=== PATIENT | female | born 1945 | race Caucasian/White ===

== ENCOUNTER 2017-08-03 11:20 | Emergency (ER) | payer BC, MEDICARE ==
[2017-08-03 11:31] VITALS: TEMP 98.9
[2017-08-03] MEDS ORDERED: NITROGLYCERIN 0.4 MG 25 EA TAB SL ONE (11:41)
[2017-08-03] MEDS ORDERED: ASPIRIN TABLET 325 MG TAB PO ONE (11:41)
[2017-08-03] MEDS ORDERED: ONDANSETRON INJ 4 MG/2 ML VIAL IV ONE (11:41)
--- NOTE | 2017-08-03 12:21 | RAD ---
EXAM DESCRIPTION: Chest,1 View CLINICAL HISTORY: chest pressure COMPARISON: 2 view chest 03/13/2007. TECHNIQUE: AP portable taken at 1152 hours, upright position. FINDINGS: Decreased lung volume. Large body habitus. No acute infiltrate. Heart is artifactually enlarged due to body habitus and decreased inspiratory effort. Pulmonary vascularity unremarkable. Monitoring leads on the chest. IMPRESSION: Senescent markings in the lung. Poor inspiratory effort. No radiographic evidence of acute cardiopulmonary disease. Electronically signed by: Rahul Cowart MD 08/03/2017 12:20 PM CDT
--- NOTE | 2017-08-03 12:45 | ED.PDOC ---
History of Present Illness - General Chief Complaint: Chest Pain/MD Stated Complaint: chest pain, sob, cough Time Seen by Provider: 08/03/17 11:48 Source: patient Exam Limitations: no limitations - History of Present Illness Initial Comments: Bonnie Bray 71 y/o female came to ER with dry cough for the last 3 MONTHS accompanied by burning chest pains during coughing episode which has got worse as well as the cough.Initially had chest x-ray done but no acute findings noted and had recent CT-chest but no result received by patient since Md is out of town.Stated had 2 MD in the past but no stents or surgery and also her blood pressure was high. Timing/Duration: other - see hpi Severity: moderate Improving Factors: nothing Worsening Factors: nothing Associated Symptoms: cough Allergies/Adverse Reactions: Allergies Penicillins Allergy (Verified 08/03/17 11:31) Sulfa Antibiotics Allergy (Verified 08/03/17 11:31) Review of Systems - Review of Systems Constitutional: States: no symptoms reported EENTM: States: no symptoms reported Respiratory: States: see HPI Cardiology: States: see HPI Neurological: States: no symptoms reported All other Systems: Reviewed and Negative, No Change from Baseline Past Medical History (General) - Patient Medical History Hx Asthma: Yes Hx Cardiac Disorders: Yes - MD x2 Hx Hypertension: Yes Hx Thyroid Disease: Yes MRSA Source:: left knee Surgical History: tonsillectomy, other - knee left - Vaccination History Hx Influenza Vaccination: Yes Hx Pneumococcal Vaccination: No - Social History Hx Tobacco Use: No Hx Alcohol Use: No Hx Physical Abuse: No Hx Emotional Abuse: No Family Medical History - Family History Mother Family History: Unknown Hx Family Hypertension: Yes Physical Exam - Physical Exam General Appearance: Alert, Comfortable, No apparent distress Eye Exam: bilateral normal Ears, Nose, Throat: hearing grossly normal, normal ENT inspection Neck: non-tender, supple Respiratory: chest non-tender, no respiratory distress, other - coarse breath sounds Cardiovascular/Chest: regular rate, rhythm, no murmur Peripheral Pulses: radial,right: 2+, radial,left: 2+ Gastrointestinal/Abdominal: normal bowel sounds, non tender, soft, no organomegaly Back Exam: no CVA tenderness, no vertebral tenderness Extremity: normal inspection, no pedal edema, no calf tenderness Neurologic: no motor/sensory deficits, alert, oriented x 3 Skin Exam: normal color, warm/dry Progress - Progress Progress: 08/03/17 12:47 Vital Signs - 8 hr 08/03/17 08/03/17 11:20 11:32 Temperature 98.9 F Pulse Rate [ 78 pulse ox] Respiratory 20 20 Rate Blood Pressure 190/130 [Left Arm] O2 Sat by Pulse 96 Oximetry - Results/Orders Results/Orders: Laboratory Tests 08/03/17 08/03/17 08/03/17 11:45 11:48 11:49 WBC 10.5 RBC 4.79 Hgb 14.2 Hct 42.6 MCV 89.0 MCH 29.7 MCHC 33.4 RDW 15.1 H Plt Count 236 MPV 9.0 Absolute Neuts (auto) 7.80 H Absolute Lymphs (auto) 1.80 Absolute Monos (auto) 0.60 Absolute Eos (auto) 0.20 Absolute Basos (auto) 0.10 Neutrophils % 74.0 Lymphocytes % 17.3 L Monocytes % 6.0 Eosinophils % 1.8 Basophils % 0.9 PT 10.4 INR 1.04 PTT (SP) 25.9 D-Dimer, Quantitative 2.09 H* Sodium 141 Potassium 3.9 Chloride 103 Carbon Dioxide 28 Anion Gap 13.9 BUN 18 Creatinine 0.98 BUN/Creatinine Ratio 18.4 Random Glucose 123 H Serum Osmolality 284.5 Lactic Acid 2.1 Calcium 8.4 Magnesium 1.7 L Total Bilirubin 1.5 H Direct Bilirubin 0.4 H Indirect Bilirubin 1.1 H AST 79 H ALT 47 Alkaline Phosphatase 148 H Creatine Kinase 39 CK-MB (CK-2) 1.3 CK-MB (CK-2) % Not Reportable Troponin I < 0.02 B-Natriuretic Peptide 515.0 H* Serum Total Protein 6.8 Albumin 3.5 - EKG/XRAY/CT EKG: Sinus, nonspecific ST T wave Chg - anterior leads Comments: HR-73 XRAY: chest - no acute cardiopulmonary abnormality CT Ordered: Yes - cta-chest:ascending aortic artery aneurysm;toni pulmonary nodule;no PE Departure - Departure Clinical Impression: Ascending aortic aneurysm, Multiple pulmonary nodules, D-dimer, elevated Chest pain Qualifiers: Chest pain type: pleurodynia Qualified Code(s): R07.81 - Pleurodynia Time of Disposition: 15:21 Disposition: Discharge to Home or Self Care Condition: Fair Departure Forms: ED Discharge - Pt. Copy, Patient Portal Self Enrollment Instructions: DI for Chest Pain Referrals: SHANTELL CABELLO [Primary Care Provider] - 1-2 Weeks Additional Instructions: FOLLOW UP WITH YOUR PRIMARY MD Dr. REN IN AM 04 August 2017 Return to emergency room as needed;Continue with all home medications
--- NOTE | 2017-08-03 14:51 | CT ---
EXAM DESCRIPTION: CTA Chest CLINICAL HISTORY: chest pain/elevated d- dimer COMPARISON: Chest radiograph obtained earlier same day TECHNIQUE: Chest CTA was performed with IV contrast including MIP and/or Three-D reconstructed images. This exam was performed according to our departmental dose-optimization program, which includes automated exposure control, adjustment of the mA and/or kV according to patient size and/or use of iterative reconstruction technique. FINDINGS: There is no pulmonary embolus. There is a 4.7 cm ascending thoracic aortic aneurysm. No mediastinal or hilar adenopathy. No pleural or pericardial effusion. The right thyroid lobe is not seen. No left thyroid nodule is identified. No esophageal wall thickening. The central airways are clear. No airspace consolidation or lung mass. There is a 5 mm noncalcified nodule right lower lobe (series 2 image 73 and 11 mm noncalcified nodule is noted in the superior segment of the left lower lobe (series 2 image 62). Two smaller noncalcified nodules are noted elsewhere in the left lower lobe, the largest measuring approximately 3 mm diameter. Diffuse fatty infiltration of the liver is noted. Visualized portions of the upper abdomen are otherwise unremarkable for pulmonary arterial technique. No fracture or pneumothorax. IMPRESSION: No pulmonary embolus or other acute intrathoracic abnormality. 4.7 cm ascending thoracic aortic aneurysm. Bilateral noncalcified lung nodules, the largest measuring 11 mm diameter in the left lower lobe. Per 2017 Fleischner 6-8 recommendations, follow-up chest CT in 3-6 months is recommended with additional follow-up CT in 18-24 months. Diffuse fatty infiltration of the liver. Electronically signed by: Steve Aquino MD 08/03/2017 2:50 PM CDT
[2017-08-03 15:52] VITALS: BP 135/88; O2SAT 95
== END 2017-08-03 15:52 | disposition home or self-care (01) ==
LOC: ER 11:20
DX: R07.81 Pleurodynia (principal); I71.2 Thoracic aortic aneurysm, without rupture; R79.89 Other specified abnormal findings of blood chemistry; R91.8 Other nonspecific abnormal finding of lung field; R05 Cough; J45.909 Unspecified asthma, uncomplicated; I25.2 Old myocardial infarction; I10 Essential (primary) hypertension; E07.9 Disorder of thyroid, unspecified; Z88.0 Allergy status to penicillin; Z88.2 Allergy status to sulfonamides
CPT/HCPCS: 36415; 71045; 71275; 80048; 80076; 82550; 82553; 83605; 83880; 84484; 85025; 85379; 85610; 85730; 93005; J2405

== ENCOUNTER 2017-08-09 20:30 | Inpatient (IN) | payer BC, MEDICARE ==
--- NOTE | 2017-08-09 20:52 | ED.PDOC ---
History of Present Illness - General Chief Complaint: Respiratory Problem Stated Complaint: nausea/vomiting Time Seen by Provider: 08/09/17 20:45 Source: patient Exam Limitations: no limitations - History of Present Illness Initial Comments: Bonnie Bray 71 y/o female stated that she had been having nausea/vomiting on and off for the last 3 days no diarrhea,has abdominal cramps.She was seen several days ago for her chronic cough and pleuritic chest pains and CTA chest for elevated d- dimer no PE noted but had ascending aortic aneurysm 4.7 cm had follow up with primary Md and went to [facility] and had CTA chest in 2012 showing no expansion in size and was advised to follow up with her Md.Has scheduled follow up with manager of loss prevention operations for her lung nodules. stated had history of pancreatitis in the past Timing/Duration: other - see hpi Severity: moderate Improving Factors: nothing Worsening Factors: eating Associated Symptoms: other - see hpi Allergies/Adverse Reactions: Allergies Penicillins Allergy (Verified 08/09/17 21:31) Sulfa Antibiotics Allergy (Verified 08/09/17 21:31) Review of Systems - Review of Systems Constitutional: States: no symptoms reported EENTM: States: no symptoms reported Respiratory: States: see HPI Cardiology: States: no symptoms reported Gastrointestinal/Abdominal: States: see HPI Genitourinary: States: no symptoms reported Musculoskeletal: States: no symptoms reported All other Systems: Reviewed and Negative, No Change from Baseline Past Medical History (General) - Patient Medical History Hx Asthma: Yes Hx Cardiac Disorders: Yes - [place] x2 Hx Hypertension: Yes Hx Thyroid Disease: Yes MRSA Source:: left knee Surgical History: tonsillectomy, other - left knee - Vaccination History Hx Influenza Vaccination: Yes Hx Pneumococcal Vaccination: No - Social History Hx Tobacco Use: No Hx Alcohol Use: No Hx Physical Abuse: No Hx Emotional Abuse: No - Activities of Daily Living Grooming Ability: Independent Eating (Feeding) Ability: Independent Toileting Ability: Independent Family Medical History - Family History Mother Family History: Unknown Hx Family Hypertension: Yes Physical Exam - Physical Exam General Appearance: Alert, Comfortable, No apparent distress Eye Exam: bilateral normal Ears, Nose, Throat: hearing grossly normal, normal ENT inspection Neck: non-tender, supple Respiratory: lungs clear, normal breath sounds Cardiovascular/Chest: normal peripheral pulses, regular rate, rhythm, no murmur Peripheral Pulses: radial,right: 2+, radial,left: 2+ Gastrointestinal/Abdominal: soft, no organomegaly, tenderness - right side abdomen;no peritoneal signs Back Exam: no CVA tenderness, no vertebral tenderness Extremity: non-tender, no pedal edema, no calf tenderness Neurologic: alert, oriented x 3 Skin Exam: normal color, warm/dry Progress - Progress Progress: 08/09/17 22:45 Vital Signs - 8 hr 08/09/17 08/09/17 21:04 22:00 Temperature 98.3 F Pulse Rate 78 Pulse Rate [ 65 88 left] Respiratory 20 20 Rate Blood Pressure 162/119 132/81 [left] O2 Sat by Pulse 98 98 Oximetry - Results/Orders Results/Orders: 08/09/17 21:04 IV Care:Saline Lock per Protoc QSHIFT URINALYSIS Stat 08/09/17 21:06 Sodium Chloride 0.9% 500Ml [NS 500ml] 500 ml IVS .QD 08/09/17 22:11 Magnesium Sulfate Premix 2Gm 2 gm Premix Bag 1 bag IVPB ONCE Laboratory Results - last 24 hr 08/09/17 21:02 WBC 9.4 RBC 4.66 Hgb 13.8 Hct 41.2 MCV 88.4 MCH 29.6 MCHC 33.5 RDW 15.0 H Plt Count 276 MPV 9.2 Absolute Neuts (auto) 6.60 Absolute Lymphs (auto) 1.90 Absolute Monos (auto) 0.80 Absolute Eos (auto) 0.00 Absolute Basos (auto) 0.10 Neutrophils % 70.5 Lymphocytes % 20.0 Monocytes % 8.3 Eosinophils % 0.5 L Basophils % 0.7 PT 10.4 INR 1.04 PTT (SP) 25.0 Sodium 142 Potassium 3.3 L Chloride 105 Carbon Dioxide 27 Anion Gap 13.3 BUN 15 Creatinine 1.20 BUN/Creatinine Ratio 12.5 Random Glucose 115 H Serum Osmolality 284.9 Calcium 8.6 Magnesium 1.6 L Total Bilirubin 2.0 H Direct Bilirubin 0.5 H Indirect Bilirubin 1.5 H AST 80 H ALT 41 Alkaline Phosphatase 129 H Creatine Kinase 53 CK-MB (CK-2) 1.8 CK-MB (CK-2) % Not Reportable Troponin I < 0.02 Serum Total Protein 6.9 Albumin 3.5 Lipase 98 H - EKG/XRAY/CT CT Ordered: Yes - abd/p-soft tissue stranding,possible lipoma cecum Departure - Departure Clinical Impression: Aneurysm, ascending aorta, Hx of multiple pulmonary nodules, Hypomagnesemia, Hypokalemia, gastrointestinal losses Nausea & vomiting Qualifiers: Vomiting type: unspecified Vomiting Intractability: unspecified Qualified Code( s): R11.2 - Nausea with vomiting, unspecified Acute pancreatitis Qualifiers: Pancreatitis type: unspecified pancreatitis type Acute pancreatitis complication: unspecified Qualified Code(s): K85.90 - Acute pancreatitis without necrosis or infection, unspecified Time of Disposition: 23:10 Disposition: Admit Patient Condition: Fair Departure Forms: Patient Portal Self Enrollment Referrals: SHANTELL CABELLO [Primary Care Provider] - 1-2 Weeks Decision To Admit - Decistion To Admit Decision to Admit Reason: Admit from ER Decision to Admit Date: 08/09/17 - D/W Kalia David-ANP/Hospitalist Decision to Admit Time: 23:09
[2017-08-09] MEDS ORDERED: LABETALOL INJ 5 MG/ML VIAL IV ONE (21:04)
[2017-08-09] MEDS ORDERED: ONDANSETRON INJ 4 MG/2 ML VIAL IV ONE (21:04)
[2017-08-09] MEDS ORDERED: SODIUM CHLORIDE 0.9% 500ML 500 ML IVS PRN (21:06)
[2017-08-09] MEDS ORDERED: MAGNESIUM SULFATE PREMIX 2GM 2 GM in PREMIX BAG 1 BAG IVPB ONE (22:11)
[2017-08-09] MEDS ORDERED: MAGNESIUM SULFATE PREMIX 2GM 50 ML IVPB ONE (22:14)
--- NOTE | 2017-08-09 22:37 | CT ---
EXAM DESCRIPTION: Abdoment/Pelvis w/o Contrast CLINICAL HISTORY: nausea/vomiting/distention COMPARISON: None Available. TECHNIQUE: Contiguous axial images of the abdomen and pelvis were obtained followed by reconstruction images. This exam was performed according to our departmental dose-optimization program, which includes automated exposure control, adjustment of the mA and/or kV according to patient size and/or use of iterative reconstruction technique. FINDINGS: There is fatty infiltration of the liver with asymmetric fat distribution. No dilated loops of bowel are seen. There is mild thickening of the wall of the cecum and proximal transverse colon which could be transient or could reflect mild inflammation. There is also probable mural lipoma of the cecum. However the cecum is not well distended, which limits detail, and there is no evidence of acute obstruction. There is soft tissue stranding surrounding the pancreatic head suggesting pancreatitis. Neoplasm is less likely. Ischemia is less likely. Clinical correlation is advised. No other acute abnormality. No free air. IMPRESSION: Possible pancreatitis. Possible cecal mural lipoma. The cecum is underdistended which limits detail. See additional findings above. Electronically signed by: Rahul Higgins 08/09/2017 10:35 PM CDT
--- NOTE | 2017-08-09 23:17 | HP ---
SUPERVISING PHYSICIAN: Gordo Merrill MD CHIEF COMPLAINT: High blood pressure, nausea and vomiting. HISTORY OF PRESENT ILLNESS: This is a 71-year-old female who came to the Emergency Room due to nausea and vomiting for the last 3 days. She also complains of some abdominal cramps. She was seen about 6 days prior due to a chronic cough and pleuritic type chest pains. She had a CTA of the chest at that time due to her elevated D-dimer and although there was no pulmonary embolism, she did have 4.7 cm ascending aortic aneurysm. She has since followed up in [place]. She apparently had a CT back in 2012 in [place] as well , and the aneurysm was 4.7 cm at that time as well. There has been no growth. She also had pulmonary nodules and was referred to a tactical air control party manager and apparently has an appointment with him next. She noted at home that her blood pressure has been out of control. She came to the Emergency Room for the high blood pressure as well as the nausea and vomiting. In the Emergency Room, her workup included CT scan of the abdomen and pelvis as well as labs. She had an elevated lipase at 98, bilirubin 2.0, AST elevated at 80. CT scan showed possible pancreatitis due to soft tissue stranding around the pancreatic head. She states she has had pancreatitis in the past. She was referred for admission for those reasons. In the Emergency Room, she was quite anxious and received 2 mg of Ativan. This helped her quite a bit in addition to the fact that labetalol due to a greatly elevated blood pressure. Throughout the evening , her blood pressure remained okay and she has not required anymore p.r.n. medications. PAST MEDICAL HISTORY: 1. Myocardial infarction times 2. She states she had not had any stents. 2. 4.7 cm ascending aortic aneurysm, being medically treated at this time. 3. Lung nodules. 4. Hypothyroidism. 5. Hypertension. 6. Hyperlipidemia. 7. Pancreatitis in the past. 8. Extensive left knee staph infection. PAST SURGICAL HISTORY: 1. Partial thyroidectomy. 2. Tonsillectomy and adenoidectomy. 3. Hernia repair at a very young age. 4. Left knee arthroscopy with irrigation. 5. Transesophageal echocardiogram. CURRENT MEDICATIONS: 1. Atorvastatin 80 mg p.o. at bedtime. 2. Baclofen 10 mg p.o. q.6h. p.r.n. spasms. 3. Digestive enzymes 1 tab p.o. daily. 4. Doxycycline 100 mg p.o. b.i.d. 5. Hydrocodone 1 tab p.o. q.4h. p.r.n. for pain. 6. Xyzal 5 mg p.o. daily. 7. Levothyroxine 150 mcg p.o. daily. 8. Meloxicam 15 mg p.o. daily. 9. Metoprolol XL 50 mg p.o. daily. 10. Singulair 10 mg p.o. daily. 11. Pantoprazole 40 mg p.o. daily. 12. Zanaflex 4 mg p.o. b.i.d. ALLERGIES: PENICILLIN, SULFA. FAMILY HISTORY: Father of chronic obstructive pulmonary disease. Mother of ovarian cancer. Brother has Alzheimer's. Another brother has CLL. PRIMARY CARE PHYSICIAN: Dr. Salinas in [place]. SOCIAL HISTORY: The patient has a distant history of smoking, but quit 30 years ago, but her smokes in the house, so she is exposed to secondhand smoke. No alcohol, no illicit drugs. REVIEW OF SYSTEMS: CONSTITUTIONAL: No fever or chills. No recent weight loss or weight gain. HEENT: No headaches, vision changes, ear pain, nasal congestion or throat pain. RESPIRATORY: Positive for cough. No hemoptysis. She has had some pleuritic type chest pain. CARDIOVASCULAR: No cardiac chest pain, palpitations or peripheral edema. GASTROINTESTINAL: Positive nausea and vomiting. No diarrhea, constipation. Some abdominal cramping, but actual abdominal pain. GENITOURINARY: No dysuria, frequency or flank pain. HEMATOLOGIC: No easy bruising and no transfusion reaction. MUSCULOSKELETAL: She does have chronic left knee pain due to that infection, but she does not have any back pain, muscle cramping/ ENDOCRINE: No polydipsia, polyuria, polyphagia. No heat or cold intolerance. NEUROLOGIC: No syncope, paresthesias, seizures. PHYSICAL EXAMINATION: VITAL SIGNS: Blood pressure 155/97. Heart rate 86. Respiratory rate 18. Temperature 98.3. Oxygen saturation 97%. GENERAL: Ms. Bray is a 71-year-old female who is in no severe distress currently. HEENT: Normocephalic, atraumatic. Pupils are equal and reactive. No nasal drainage. Throat with moist mucosa. NECK: Supple. Midline trachea. No jugular venous distention. CHEST: Symmetrical with equal rise and fall of the chest with inspiration and expiration. Lung sounds are clear to auscultation bilaterally. CARDIOVASCULAR: Regular rate and rhythm. Normal S1, S2. ABDOMEN: Soft, obese. Positive bowel sounds. She does have a little bit of epigastric tenderness to palpation. GENITOURINARY: Deferred. EXTREMITIES: Lower extremities with some mild ankle edema. Pulses 2+. Capillary refill is less than 2 seconds. NEUROLOGIC: The patient is alert and oriented. She is a little bit anxious Moves all extremities. Extraocular movements are intact. No focal deficits. LABORATORY: Labs and films as discussed in history of present illness. ASSESSMENT: 1. Acute pancreatitis as evidenced by CT scan and elevated lipase. 2. Nausea with vomiting secondary to #1. 3. Uncontrolled hypertension. 4. Anxiety. 5. History of 4.7 cm ascending aortic aneurysm. 6. Electrolyte imbalance. 7. Hypothyroidism. 8. Lung nodules. PLAN: The pancreatitis does not appear to be too infectious at this time, so I am not going to start her on antibiotics. However, we will treat with aggressive IV fluids at this point. Antiemetics have been ordered as well as pain medication for pain control. Blood pressure is improved from in the Emergency Room, so I will resume her home medications, but increase the dose of metoprolol. Her ascending aortic aneurysm appears not to have grown over the last 5 years or so. She already has an established provider in [place] who is following up on this. She is having a little bit of chest discomfort, so I will check an EKG and troponin just to ensure these are not elevated. However, the ones in the Emergency Room last night were negative. She does appear to have a degree of anxiety. We will probably start her on some anxiety medication if she requires it. I have ordered DVT and GI ulcer prophylaxis as well. We will trend labs to ensure she has step-fulton improvement. I can also start her on some clear liquids and if she tolerates, we can advance from there. #[id number] [facility]
[2017-08-09] MEDS: IV SET AND CAP CHANGE INJ INJ SCH (23:45)
[2017-08-09] MEDS ORDERED: PANTOPRAZOLE SODIUM IV 40 MG VIAL IV SCH (23:45)
[2017-08-09] MEDS ORDERED: ENOXAPARIN SODIUM 40 MG/0.4 ML SYG SUBCU SCH (23:45)
[2017-08-10] MEDS: KCL 20 MEQ/NS 1,000 ML IVS PRN ×3 (00:11→15:09)
[2017-08-10] MEDS: SODIUM CHLORIDE 0.9% (FLUSH) 10 ML SYG IV PRN ×2 (08:31→10:40)
[2017-08-10] MEDS: fentaNYL CITRATE INJ 50 MCG/ML AMP IV PRN ×4 (08:32→22:08)
[2017-08-10] MEDS ORDERED: BACLOFEN 10 MG TAB PO PRN (09:07)
[2017-08-10] MEDS: HYDROcodone 10MG/APAP 325MG 1 EA TAB PO SCH ×4 (09:23→20:39)
[2017-08-10] MEDS: METOPROLOL SUCCINATE XL 100 MG TAB PO SCH (09:23)
[2017-08-10] MEDS: DOXYCYCLINE HYCLATE CAP 100 MG CAP PO SCH ×2 (11:33→20:39)
[2017-08-10] MEDS ORDERED: ALPRAZolam 0.5 MG TAB PO ONE (13:03)
[2017-08-10] MEDS ORDERED: hydrALAZINE HCl 20 MG/ML VIAL ONE (13:50)
[2017-08-10] MEDS ORDERED: hydrALAZINE HCl 20 MG/ML VIAL IV ONE (13:52)
[2017-08-10] MEDS: ONDANSETRON INJ 4 MG/2 ML VIAL IV PRN ×2 (15:40→22:13)
[2017-08-10] MEDS ORDERED: ALPRAZolam 0.25 MG TAB PO PRN (16:09)
[2017-08-10] MEDS ORDERED: amLODIPine BESYLATE 5 MG TAB PO ONE (16:45)
[2017-08-10] MEDS: ENOXAPARIN SODIUM 40 MG/0.4 ML SYG SUBCU SCH (20:39)
[2017-08-10] MEDS: tiZANidine 4 MG TAB PO SCH (20:39)
[2017-08-10] MEDS: ATORVASTATIN 20 MG TAB PO SCH (20:40)
[2017-08-10] MEDS ORDERED: ALPRAZolam 0.5 MG TAB ONE (20:48)
[2017-08-10] MEDS ORDERED: PANTOPRAZOLE SODIUM IV 40 MG VIAL IV SCH (21:00)
[2017-08-11] MEDS: HYDROcodone 10MG/APAP 325MG 1 EA TAB PO SCH ×3 (01:41→09:24)
[2017-08-11] MEDS: KCL 20 MEQ/NS 1,000 ML IVS PRN ×3 (05:37→23:18)
[2017-08-11] MEDS: LEVOTHYROXINE SODIUM 0.075 MG TAB PO SCH (05:37)
[2017-08-11] MEDS ORDERED: ALPRAZolam 0.5 MG TAB PO PRN (08:17)
[2017-08-11] MEDS: amLODIPine BESYLATE 5 MG TAB PO SCH (08:24)
[2017-08-11] MEDS: DOXYCYCLINE HYCLATE CAP 100 MG CAP PO SCH ×2 (08:25→19:35)
[2017-08-11] MEDS: MELOXICAM 7.5 MG TAB PO SCH (08:25)
[2017-08-11] MEDS: METOPROLOL SUCCINATE XL 100 MG TAB PO SCH (08:25)
[2017-08-11] MEDS: tiZANidine 4 MG TAB PO SCH ×2 (08:26→19:35)
[2017-08-11] MEDS: DIGESTIVE ENZYMES PO SCH (08:27)
[2017-08-11] MEDS: CETIRIZINE HCL 10 MG TAB PO SCH (08:29)
[2017-08-11] MEDS ORDERED: MONTELUKAST 10 MG TAB PO SCH (09:00)
[2017-08-11] MEDS ORDERED: PANTOPRAZOLE SODIUM TAB 40 MG PO SCH (09:00)
[2017-08-11] MEDS ORDERED: NON-FORMULARY MEDICATION 1 EA MIS (Levocetirizine Dihydrochloride [Xyzal] 5 MG) PO SCH (09:00)
[2017-08-11] MEDS ORDERED: NON-FORMULARY MEDICATION 1 EA MIS (Levothyroxine Sodium [Synthroid] 150 MCG) PO SCH (09:00)
[2017-08-11] MEDS ORDERED: SODIUM CHL 0.9% 50ML MIN-BAG+ 50 ML IVPB ONE ×3 (09:18→20:45)
[2017-08-11] MEDS ORDERED: MEROPENEM 1 GM VIAL IVPB ONE ×3 (09:18→20:46)
[2017-08-11] MEDS: MEROPENEM 1 GM in SODIUM CHL 0.9% 50ML MIN-BAG+ 50 ML IVPB SCH ×2 (09:24→16:45)
--- NOTE | 2017-08-11 10:18 | US ---
EXAM DESCRIPTION: Right upper quadrant abdomen sonogram CLINICAL HISTORY: Abnormal CT. Pancreatitis. Nausea and vomiting. Abdominal pain COMPARISON: CT dated 08/09/2017 FINDINGS: Gallbladder is normal . Gallbladder wall thickness is normal Common bile duct measures 4 mm in the maria isabel hepatis. Liver demonstrates diffuse increased echotexture consistent with fatty infiltration. No focal abnormality Pancreas is not well seen secondary to body habitus and overlying bowel gas. Peripancreatic subtle inflammatory change around the head of the pancreas on CT. Visualized abdominal aorta and inferior vena cava are normal Right kidney is normal IMPRESSION: Fatty infiltration of the liver Normal gallbladder. Electronically signed by: Wesley Bustos MD 08/11/2017 10:17 AM CDT
--- NOTE | 2017-08-11 13:19 | PN ---
SUPERVISING PHYSICIAN: Gordo Merrill MD DATE: 08/11/17 SUBJECTIVE: The patient is still not taking a whole lot of p.o. liquids. She is complaining of a little bit of epigastric discomfort, but nothing over the top painful. She states the pain medication she got last night really helped her sleep. OBJECTIVE: VITAL SIGNS: Blood pressure 149/104. Heart rate 87. Respiratory rate 16. Temperature 98.3. Oxygen saturation 98%. GENERAL: Ms Bray is a 71-year-old female in no severe distress currently. NEUROLOGIC: Alert and oriented. LUNGS: Clear to auscultation bilaterally, a little bit diminished in the bases. CARDIOVASCULAR: Regular rate and rhythm. Normal S1, S2. ABDOMEN: Soft, obese. Hypoactive bowel sounds. She does have a little bit of epigastric tenderness to palpation and a little bit of diffuse tenderness, but no rebound tenderness, no abdominal rigidity. GENITOURINARY: Deferred. EXTREMITIES: Lower extremities with no edema. Pulses 2+. Capillary refill is less than 2 seconds. LABORATORY: Labs were repeated this morning and show an elevated white count at 13.1 whereas yesterday it was 9.6. There is no left shift. Hemoglobin 13.4 , INR 1.04. Chemistry shows a sodium 138, potassium 3.9, chloride 107, CO2 24, BUN 12, creatinine 0.9, glucose 86, calcium 7.8, bilirubin 2.2, AST 73, ALT 38, albumin 3.4, lipase 1197. I ordered a gallbladder sonogram this morning as well which shows fatty infiltration of the liver, but a normal gallbladder. ASSESSMENT: 1. Acute pancreatitis. 2. Nausea with vomiting secondary to #1. 3. Uncontrolled hypertension. 4. Anxiety. 5. History of 4.7 cm ascending aortic aneurysm. 6. Electrolyte imbalance. 7. Hypothyroidism. 8. Lung nodules. PLAN: She has had an increase in her lipase today. I have now made her completely NPO. I have changed her pain medication to IV Dilaudid as well. I spoke with Dr. Raya from [place] regarding the patient's pancreatitis. He is in agreement with the current plan of care. He states he may not necessarily use antibiotics, but is not 100% opposed to them given the elevation in the white count. He states that if she somehow decompensates, then we can transfer her to [facility], however, they would do nothing differently at this point. I have reviewed the case with Dr. Merrill and he is aware of the patient's current status as well. We will repeat labs tomorrow and monitor her. #[id number] [facility]
[2017-08-11] MEDS: HYDROmorphone HCL INJ 2 MG/ML VIAL IV PRN ×3 (16:07→23:19)
[2017-08-11] MEDS: ATORVASTATIN 20 MG TAB PO SCH (19:35)
[2017-08-11] MEDS: ENOXAPARIN SODIUM 40 MG/0.4 ML SYG SUBCU SCH (20:53)
[2017-08-12] MEDS: MEROPENEM 1 GM in SODIUM CHL 0.9% 50ML MIN-BAG+ 50 ML IVPB SCH ×3 (01:01→17:22)
[2017-08-12] MEDS: HYDROmorphone HCL INJ 2 MG/ML VIAL IV PRN ×4 (02:19→14:56)
[2017-08-12] MEDS: LEVOTHYROXINE SODIUM 0.075 MG TAB PO SCH (06:00)
[2017-08-12] MEDS ORDERED: SODIUM CHL 0.9% 50ML MIN-BAG+ 50 ML IVPB ONE ×3 (07:53→20:32)
[2017-08-12] MEDS ORDERED: MEROPENEM 1 GM VIAL IVPB ONE ×3 (07:54→20:33)
[2017-08-12] MEDS: KCL 20 MEQ/NS 1,000 ML IVS PRN ×2 (08:09→19:09)
[2017-08-12] MEDS: DIGESTIVE ENZYMES PO SCH (08:46)
[2017-08-12] MEDS: CETIRIZINE HCL 10 MG TAB PO SCH (08:46)
[2017-08-12] MEDS: DOXYCYCLINE HYCLATE CAP 100 MG CAP PO SCH ×2 (09:07→20:46)
[2017-08-12] MEDS: amLODIPine BESYLATE 5 MG TAB PO SCH (09:07)
[2017-08-12] MEDS: tiZANidine 4 MG TAB PO SCH ×2 (09:08→20:46)
[2017-08-12] MEDS: MELOXICAM 7.5 MG TAB PO SCH (09:08)
[2017-08-12] MEDS: METOPROLOL SUCCINATE XL 100 MG TAB PO SCH (09:09)
[2017-08-12] MEDS ORDERED: MAGNESIUM SULFATE PREMIX 2GM 2 GM in PREMIX BAG 1 BAG IVPB ONE (09:27)
[2017-08-12] MEDS ORDERED: cloNIDine HCL 0.1 MG TAB PO ONE (11:27)
[2017-08-12] MEDS ORDERED: MAGNESIUM SULFATE PREMIX 2GM 50 ML IVPB ONE (11:32)
[2017-08-12] MEDS ORDERED: SODIUM CHLORIDE 0.9% 500ML 500 ML IVS ONE (11:58)
--- NOTE | 2017-08-12 15:50 | PN ---
DATE: 08/12/17 SUPERVISING PHYSICIAN: Alberto Howell M.D. SUBJECTIVE: The patient today notes that her abdominal pain is essentially gone. She continues with some pain medicine but notes that her biggest problem with pain seems to be her left knee which has been chronic. OBJECTIVE: VITAL SIGNS: Temperature 98.7, pulse 91, blood pressure 156/96, respirations 16, satting 94% on room air. Weight is 90.8 kg. CHEST: Lungs are clear to auscultation. HEART: Regular rate and rhythm. ABDOMEN: Obese but soft. No rebound tenderness. No tenderness or guarding. Bowel sounds were present. EXTREMITIES: No clubbing, cyanosis or edema. NEUROLOGIC: She is alert and oriented times three. LABORATORY: White count is showing to return to baseline. It is down to 12,700 , hemoglobin and hematocrit are stable at 13.4 and 41.1, platelet count 256, 000. Differential shows to be without a left shift. Chemistries today show normal electrolytes with potassium 4.1, carbon dioxide is low at 18 with glucose 69, magnesium 1.6, calcium 7.9, albumin 3.3. C reactive protein was 6.7. Liver functions again show an elevation in her bilirubin at 2.4, AST 78, ALT normal, alkaline phosphatase has now gone up to 128. Lipase is now down to 210. ASSESSMENT: 1. Acute pancreatitis with metabolic acidosis as noted with a CO2 of 18. 2. Nausea with vomiting secondary to #1, improving. 3. Uncontrolled hypertension. 4. Anxiety. 5. History of 4.7 cm ascending aortic aneurysm needing continuation and followup in the outpatient setting. 6. Electrolyte imbalances, including hypomagnesemia requiring parenteral replacement. 7. Hypothyroidism on supplementation. 8. Lung nodules noted on CT. 9. Hyperbilirubinemia, uncertain etiology, with gallbladder scan being without any significant findings both on CT and sonogram. 10. Leukocytosis with concerns for possible infectious process, although more likely demarginalization from pain response, continue with antibiotic therapy until the patient shows clinical improvement. PLAN: The patient is showing improvement in her pancreatic enzymes. The patient's labs continue to show improvement in regards to the pancreatic enzymes , although her bilirubin has continued to be elevated. Will give her some magnesium replacement today with 2 grams magnesium parenterally. Now that she is not having any significant pain, will go ahead and try to start her back on some clear liquids and monitor closely. She will continue on antibiotics to include Meropenem and doxycycline p.o. Will continue with IV fluids as she still appears to be somewhat dehydrated and has had poor oral intake in the last 24 hours. Will plan to repeat laboratory studies in the morning and if she continues to show good improvement with her diet, will advance diet as tolerated. Will continue to monitor and treat appropriately with close monitoring until discharge. #[id number] [facility]
[2017-08-12] MEDS: ENOXAPARIN SODIUM 40 MG/0.4 ML SYG SUBCU SCH (20:46)
[2017-08-12] MEDS: IV SET AND CAP CHANGE INJ INJ SCH (23:30)
[2017-08-13] MEDS: MEROPENEM 1 GM in SODIUM CHL 0.9% 50ML MIN-BAG+ 50 ML IVPB SCH ×3 (01:01→16:57)
[2017-08-13] MEDS: LEVOTHYROXINE SODIUM 0.075 MG TAB PO SCH (06:03)
[2017-08-13] MEDS: KCL 20 MEQ/NS 1,000 ML IVS PRN (07:00)
[2017-08-13] MEDS: HYDROmorphone HCL INJ 2 MG/ML VIAL IV PRN (07:48)
[2017-08-13] MEDS ORDERED: SODIUM CHL 0.9% 50ML MIN-BAG+ 50 ML IVPB ONE ×3 (08:13→19:13)
[2017-08-13] MEDS ORDERED: MEROPENEM 1 GM VIAL IVPB ONE ×3 (08:14→19:14)
[2017-08-13] MEDS: MELOXICAM 7.5 MG TAB PO SCH (08:26)
[2017-08-13] MEDS: CETIRIZINE HCL 10 MG TAB PO SCH (08:26)
[2017-08-13] MEDS: DOXYCYCLINE HYCLATE CAP 100 MG CAP PO SCH ×2 (08:26→20:26)
[2017-08-13] MEDS: tiZANidine 4 MG TAB PO SCH ×2 (08:26→20:26)
[2017-08-13] MEDS: amLODIPine BESYLATE 5 MG TAB PO SCH (08:27)
[2017-08-13] MEDS: METOPROLOL SUCCINATE XL 100 MG TAB PO SCH (08:32)
[2017-08-13] MEDS: DIGESTIVE ENZYMES PO SCH (10:53)
--- NOTE | 2017-08-13 11:19 | RAD ---
PROCEDURE: Abdomen Flat Upright Clinical History: abdominal pain Indication: Same as above Comparison: None Technique: 3.0 views of the abdomen and pelvis were done. Findings: There is no gross evidence of free air in the abdomen or the pelvis . The small and large bowel gas pattern does not show any evidence of obstruction, ileus or bowel wall thickening. There is no visualization of radiopaque calculi in the outline of the urinary tract. The visualized lung bases are unremarkable . There is no significant constipation Degenerative changes are seen in the lumbar spine. Impression: Nonobstructive and nonspecific bowel gas pattern Location of Interpretation: [id number] Electronically signed by: Keagan Yi MD 08/13/2017 11:18 AM CDT Workstation: [id number]
[2017-08-13] MEDS ORDERED: KETOROLAC TROMETHAMINE INJ 30 MG/ML VIAL IV ONE (11:51)
[2017-08-13] MEDS: HYDROcodone/IBUPROFEN 7.5/200 1 EA TAB PO PRN ×2 (12:43→16:57)
[2017-08-13] MEDS: ENOXAPARIN SODIUM 40 MG/0.4 ML SYG SUBCU SCH (20:26)
[2017-08-13] MEDS: SODIUM CHLORIDE 0.9% (FLUSH) 10 ML SYG IV SCH (20:27)
--- NOTE | 2017-08-13 21:27 | PN ---
DATE: 08/13/17 SUPERVISING PHYSICIAN: Alberto Howell M.D. SUBJECTIVE: The patient notes that she feels much better today. She tolerated clear liquids yesterday with no reported nausea. She still continues to have some mild pain more so in the epigastrium, but it is intermittent. Her biggest complaint is pain in her knee. She remains afebrile. OBJECTIVE: VITAL SIGNS: Temperature 98.5, pulse 91, blood pressure 158/97, respirations 18, satting 100% on room air. CHEST: Lungs were clear to auscultation. HEART: Regular rate and rhythm. ABDOMEN: Soft with some tenderness noted on deep palpation of the epigastrium. No rebound tenderness. No guarding. Bowel sounds are present. EXTREMITIES: No clubbing, cyanosis or edema. NEUROLOGIC: She is alert and oriented times three. LABORATORY: White count now has normalized to 9,500, hemoglobin is stable at 13.7 and 42.0 respectively with platelet count 228,000. Differential continues to show a left shift. Chemistries show normal electrolytes with potassium 4.4, carbon dioxide is down to 16, anion gap is elevated at 21.4. Serum osmolality was 269, calcium 8.2, bilirubin is once again up to 3.2 with indirect being 2.4 , direct being 0.7. AST remains elevated at 83, ALT normal at 40, alkaline phosphatase at 125, amylase was 124, lipase 108. RADIOLOGY: Abdominal series 2 view per radiology interpretation shows nonobstructive and nonspecific bowel gas pattern. ASSESSMENT: 1. Acute pancreatitis showing a metabolic acidosis with a elevated anion gap and a low CO2 felt to be secondary to a fasting state as the patient has been without any significant caloric intake on IV fluids for the last 4 days. 2. Nausea and vomiting secondary to #1, resolved. 3. Uncontrolled hypertension, improving. 4. Anxiety. 5. History of 4.7 cm ascending aortic aneurysm showing to be stable needing continuation and followup in the outpatient setting. 6. Electrolyte imbalance, including hypomagnesemia now showing normalization with parenteral replacements. 7. Hypothyroidism on supplementation. 8. Lung nodules noted on CT requiring followup in the outpatient setting. 9. Hyperbilirubinemia with elevated unconjugated bilirubin with most recent scans of gallbladder being without any significant findings as well as on ultrasound with lipase and amylase now showing to be returning to baseline, continue to have concerns for possible blockage secondary to a stone. Continue to monitor. 10. Leukocytosis now normalized likely secondary to stress and pain response from #1 with some demarginalization. Continue on antibiotic therapy. PLAN: The patient now is tolerating a clear liquid diet. Will advance her to a regular diet in efforts to hopefully stop her fasting state. Will go ahead and check labs later today with ketones and repeat a BMP. Will continue with pain management as needed. She will be saline locked. She has shown to be euvolemic. Will repeat labs in the morning. Should her bilirubin continue to show elevation, consideration for a repeat ultrasound and further consultation with GI and also with Dr. Lowe based off those findings. Again, she is without any significant pain and showing improvements in all of her labs essentially except for bilirubin. Will anticipate discharging hopefully tomorrow. Until then, continue to monitor and treat appropriately. Anticipate possibly need for ERCP but will await further findings on the ultrasound and again consultation with GI and Dr. Lowe. #[id number] [facility]
[2017-08-14] MEDS: MEROPENEM 1 GM in SODIUM CHL 0.9% 50ML MIN-BAG+ 50 ML IVPB SCH ×2 (00:54→09:29)
[2017-08-14] MEDS: LEVOTHYROXINE SODIUM 0.075 MG TAB PO SCH (06:14)
[2017-08-14] MEDS: HYDROcodone/IBUPROFEN 7.5/200 1 EA TAB PO PRN (06:14)
[2017-08-14] MEDS: HYDROmorphone HCL INJ 2 MG/ML VIAL IV PRN (08:28)
[2017-08-14] MEDS ORDERED: ALBUTEROL SULFATE 2.5 MG/3 ML VIAL NEB ONE (08:51)
[2017-08-14] MEDS ORDERED: ALBUTEROL SULFATE 1.25 MG INH PRN (09:20)
[2017-08-14] MEDS ORDERED: SODIUM CHL 0.9% 50ML MIN-BAG+ 50 ML IVPB ONE (09:25)
[2017-08-14] MEDS ORDERED: MEROPENEM 1 GM VIAL IVPB ONE (09:26)
[2017-08-14] MEDS ORDERED: ALBUTEROL SULFATE 2.5 MG/3 ML VIAL NEB PRN (10:06)
[2017-08-14] MEDS ORDERED: ALPRAZolam 0.5 MG TAB PO PRN (10:14)
[2017-08-14] MEDS ORDERED: KCL 20MEQ/D5 1/2NS 1,000 ML IVS ONE (10:23)
[2017-08-14 10:31] VITALS: O2SAT 98
[2017-08-14] MEDS: DOXYCYCLINE HYCLATE CAP 100 MG CAP PO SCH (10:32)
[2017-08-14] MEDS: amLODIPine BESYLATE 5 MG TAB PO SCH (10:32)
[2017-08-14] MEDS: CETIRIZINE HCL 10 MG TAB PO SCH (10:32)
[2017-08-14] MEDS: METOPROLOL SUCCINATE XL 100 MG TAB PO SCH (10:32)
[2017-08-14] MEDS: DIGESTIVE ENZYMES PO SCH (10:32)
[2017-08-14] MEDS: MELOXICAM 7.5 MG TAB PO SCH (10:32)
[2017-08-14] MEDS: tiZANidine 4 MG TAB PO SCH (10:32)
[2017-08-14] MEDS: SODIUM CHLORIDE 0.9% (FLUSH) 10 ML SYG IV SCH (10:33)
[2017-08-14] MEDS ORDERED: KCL 20MEQ/D5 1/2NS 1,000 ML IVS PRN (10:37)
--- NOTE | 2017-08-14 13:49 | MRI ---
EXAM DESCRIPTION: Abdomen MRI without contrast CLINICAL HISTORY: 71 years Female, acute pancreatitis elevated TBIL COMPARISON: None. TECHNIQUE: MRI of the abdomen is performed according to our usual technique including multisequence axial imaging. Postprocessed 3-D type reconstructions for MRCP are created and reviewed along with source axial images. All images are maintained in the patient's medical record. FINDINGS: MRI liver Coronal T2 images are negative for focal liver lesion. No intrahepatic or extrahepatic bile duct dilatation is evident. Normal caliber of the pancreatic duct. Marked degenerative changes of the thoracolumbar spine are seen with lumbar levoscoliosis. Axial T2 images show 5.5 mm midline calcified disc protrusion flattening the lower cord at approximately T12-L1 level. Degenerative changes with mild spinal stenosis of the lower lumbar spine also noted. Normal kidneys and adrenal glands. No abnormality of the spleen. No focal pancreatic lesion. Stomach and upper abdominal bowel loops appear normal. No low signal intensity foci in the gallbladder lumen to suggest stones. Clinical history is pancreatitis. Mild edematous changes are seen around the pancreas. No pancreatic pseudocyst. Dual phase T1 gradient echo imaging shows extensive signal loss throughout the liver consistent with diffuse hepatic steatosis. Some spared areas are seen near the gallbladder and in the anterior medial segment left lobe. Fat is prominent around the heart and in the lower mediastinum. Diffusion-weighted imaging is negative for focal liver lesion. Linear defect in the spleen may be scarring from an old infarct or old laceration MRCP Normal caliber of the cystic duct, common bile duct and common hepatic duct. Normal overall appearance of the pancreatic duct. No anomalies, filling defects or stricture. No abnormal dilatation. Gallbladder appears normal. On 3-D images, the bile ducts appear normal. Mild narrowing of the pancreatic duct in the region of the neck may be related to pancreatitis. Mild narrowing of the pancreatic duct in the region of the tail. Coronal reformatted MIP images confirm the findings. IMPRESSION: Mild edematous changes around the pancreas. Normal appearance of the common hepatic and common bile duct, cystic duct and gallbladder on MRCP. Diffuse hepatic steatosis. Advanced degenerative changes of the thoracolumbar spine. . Electronically signed by: Loco Vera MD 08/14/2017 1:47 PM CDT
[2017-08-14 14:25] VITALS: BP 99/70; TEMP 96.3
--- NOTE | 2017-08-14 21:38 | DS ---
SUPERVISING PHYSICIAN: Wesley Chahal M.D. ADMISSION DIAGNOSIS: 1. Acute pancreatitis as evidenced by CT scan and elevated lipase. 2. Nausea and vomiting secondary to #1. 3. Uncontrolled hypertension. 4. Anxiety. 5. History of 4.7 cm ascending aortic aneurysm. 6. Electrolyte imbalance 7. Hypothyroidism. 8. Lung nodules. DISCHARGE DIAGNOSIS: 1. Acute pancreatitis, uncertain etiology with no evidence of ductal pathology with good response to fluids and treatment. 2. Nonalcoholic fatty liver disease likely contributing to #1. 3. Uncontrolled hypertension, improving with additional medications to include Amlodipine. 4. Unconjugated hyperbilirubinemia, uncertain etiology with normal MRCP. 5. Anxiety. 6. History of 4.7 cm ascending aortic aneurysm, stable with continuation and followup on an outpatient setting. 7. Electrolyte imbalance that included hypomagnesemia, normalized with parenteral replacements. 8. Hypothyroidism on supplementation. 9. Lung nodules noted on CT requiring followup in the outpatient setting. 10. Leukocytosis secondary to #1 and demarginalization with stress response showing return to baseline prior to discharge. No evidence of infection. REASON FOR HOSPITALIZATION: Ms. Bray is a 71-year-old female patient that lives in [place] and is taken care of by primary care physician, Dr. Salinas. She initially presented to the Emergency Room secondary to nausea and vomiting over the last 3 days. She was complaining that she was having some abdominal cramping and had been seen 6 days prior due to a chronic cough and pleuritic type chest pains. At that time, she had a CTA of the chest due to elevated D-dimer and although there was no pulmonary embolism, she did have 4.7 cm ascending aortic aneurysm. She has since followed up in [place]. It was noted she apparently had a CT back in 2012 in [place] where the aneurysm was identified at that time and there has been no change. She also had lung nodules that were referred to a supervisor bakery sanitation and had an appointment to see him after discharge. She noted that her blood pressure at home was out of control. She then presented to the Emergency Room for high blood pressure as well as nausea and vomiting. In the Emergency Room, her workup included CT scan of the abdomen and pelvis as well as labs. She had an elevated lipase at 98, bilirubin of 2.0, elevated AST at 80. A CT scan showed possible pancreatitis due to soft tissue stranding around the pancreatic head. She does note that she has a history of pancreatitis in the past. For those findings she was admitted to the Medical/Surgical floor for continued workup. She was admitted in stable condition. LABORATORY STUDIES: CBC on admission showed a white count of 9,400. It did maximize out to a leukocytosis of 13.1 but returned to baseline status prior to discharge at 10.5. Hemoglobin and hematocrit were stable at 13.2 and 40.5 at discharge respectively with platelet count being at 238,000. Differential showed a left shift but resolved prior to discharge. Coagulation studies showed a normal PT and PTT. Chemistries showed a low potassium at 3.3, otherwise electrolytes were within normal limits. BUN 15, creatinine 1.2, calcium 8.6, magnesium was low at 1.6 but replacement prior to discharge had normalized to 2.1. She did have an elevated bilirubin initially on admission was 2.0. It elevated up to a maximum of 3.1, at discharge was down to 2.9. Indirect bilirubin remained elevated with indirect at discharge being 2.2. She had an elevated AST at admission that was 80, at discharge was 77. ALT was normal. Alkaline phosphatase was elevated at 129 and at discharge was 127. She had a troponin times 2 sets that were negative being less than 0.02. CPKs were normal. C reactive protein was 6.7, at discharge had gone down to 6.0. Lipase was initially on admission of 98, went up a maximum of 236, was returning to baseline status down to 136 at discharge. Amylase showed elevation initially at 124 and at discharge was down to 106. She had a lactic acid that was normal at 0.9. She had serum ketones that showed a small amount of ketones present. Urinalysis just showed trace lysed blood, otherwise within normal limits. She had no microbiology specimens submitted. RADIOLOGY: Radiographic studies initially included abdominal/pelvic CT in the Emergency Department per radiology interpretation of a contrast CT showed possible pancreatitis with possible cecal mural lipoma. The cecum was not distended which limits detail. See that report for full details. There was also note of fatty infiltration of the liver. She had additional follow studies that included a gallbladder ultrasound and per radiology interpretation showed fatty infiltration of the liver, normal gallbladder. The common bile duct measured 4 mm in the maria isabel hepatis. She also had an abdominal x-ray 2 series per radiology interpretation showed nonobstructive nonspecific bowel gas pattern and on the morning of discharge she had an abdominal MRCP and per findings on radiology interpretation was noted mild edematous changes around the pancreas, normal appearance of the common hepatic and common bile duct, cystic duct and gallbladder on MRCP. There was also noted diffuse hepatic steatosis. HOSPITAL COURSE: Ms. Bray was admitted on 08/09/17 for acute pancreatitis. She was made NPO and remained NPO for 4 days, and was then as her enzymes improved returning to baseline and her pain resolved, she was advanced in her diet which she was tolerating at discharge to a regular diet. She continued to show elevation of her bilirubin, therefore consultation was done with Dr. Raya, GI, who recommended we do an MRCP prior to discharge to further delineate any pathology. Per those findings, the gallbladder was normal as well as the cystic duct system. The patient was showing good clinical response with no longer having any abdominal pains and was again tolerating oral intake with no complications. It was felt that she was stable enough to discharge to continue with outpatient management. The patient did have fairly erratic blood pressures which were better controlled once Amlodipine was added. She did require Dilaudid but was able to get pain control prior to discharge with oral medications. She remained hemodynamically stable. Vital signs on discharge showed a temperature of 97.8 with pulse 83, blood pressure 99/70 with respirations 16, satting 98% on room air. PLAN: Ms. Bray was discharged on 08/14/17 with instructions to followup with her primary care provider, Dr. Salinas. She was to follow a low fat, low cholesterol diet. Activities were to increase activities as tolerated. She was to resume her home medications as directed with noted changes, to hold her Lipitor until seen in followup. New medications at admission included blood pressure management with Amlodipine 10 mg daily. She was to avoid medications containing Tylenol or Acetaminophen and to avoid any alcohol. She was encouraged to increase fluid intake to prevent dehydration. She was told to return to the hospital or call her primary care provider if she had any concerning symptoms or worsening of her condition. The patient was discharged in stable condition and improved. DISCHARGE MEDICATIONS: 1. Amlodipine 10 mg daily, #30. 2. Zofran 4 mg every 6 hours as needed, #12. #[id number] [facility]
== END 2017-08-14 15:54 | disposition home or self-care (01) | DRG 440 ==
LOC: ER 20:30 → MS 23:15 → OBSVTOIN 08-11 14:01
PROVIDERS: ADMIT Nurse Practitioner; ATTEND Nurse Practitioner Family
DX: K85.90 Acute pancreatitis without necrosis or infection, unspecified (principal); E86.0 Dehydration; I10 Essential (primary) hypertension; F41.9 Anxiety disorder, unspecified; I71.4 Abdominal aortic aneurysm, without rupture; E03.9 Hypothyroidism, unspecified; K76.0 Fatty (change of) liver, not elsewhere classified; E80.6 Other disorders of bilirubin metabolism; I71.2 Thoracic aortic aneurysm, without rupture; M25.562 Pain in left knee; G89.29 Other chronic pain; E83.42 Hypomagnesemia; R91.8 Other nonspecific abnormal finding of lung field; E87.6 Hypokalemia; E78.5 Hyperlipidemia, unspecified; E66.9 Obesity, unspecified; I25.2 Old myocardial infarction; Z68.31 Body mass index [BMI] 31.0-31.9, adult; Z79.891 Long term (current) use of opiate analgesic; Z79.1 Long term (current) use of non-steroidal anti-inflammatories (NSAID); Z79.899 Other long term (current) drug therapy; Z88.0 Allergy status to penicillin; Z88.2 Allergy status to sulfonamides; Z87.891 Personal history of nicotine dependence

== ENCOUNTER 2017-08-16 14:41 | Emergency (ER) | payer MEDICARE ==
[2017-08-16] MEDS ORDERED: SODIUM CHLORIDE 0.9% 1000ML 1,000 ML IVS ONE (15:29)
[2017-08-16] MEDS ORDERED: MORPHINE SULFATE INJ 10 MG/ML VIAL IV ONE ×2 (15:29→17:14)
[2017-08-16] MEDS ORDERED: PROMETHAZINE HCL INJ 12.5 MG in SODIUM CHLORIDE 0.9% 50ML 50 ML IVPB ONE ×2 (15:30→17:14)
[2017-08-16 15:35] VITALS: TEMP 96.5
--- NOTE | 2017-08-16 15:58 | RAD ---
EXAM DESCRIPTION: Chest,2 Views CLINICAL HISTORY: cough, weakness COMPARISON: August 03, 2017, CTA August 03, 2017 TECHNIQUE: PA/lateral FINDINGS: The lungs are adequately expanded and no specific abnormality is noted on the right except for a questionable tiny granulomatous calcification of the lateral right lung base. On the left a subtle nodule overlying the mid to upper lung field corresponds to the 11 mm nodule noted on recent CT pulmonary angiogram. I would consider this nodule moderately suspicious and at the very least early follow-up examination in 3-6 months is recommended. Although there are additional smaller nodules present this almost has the appearance of a solitary pulmonary nodule based on size and consideration for PET imaging for solitary pulmonary nodule should also be considered. Heart size and vascularity is normal and the aorta tortuous. The hilar and mediastinal structures are normal. IMPRESSION: 1. No acute cardiopulmonary disease seen. 2. Subtle noncalcified nodule left mid to upper lung field, correlating with the 11 mm nodule noted superior segment of the left lower lobe on recent CT pulmonary angiogram. Either close radiographic and CT follow-up in 3-6 months or consideration for further evaluation with PET imaging recommended. Electronically signed by: Wesley Winchester MD 08/16/2017 3:57 PM CDT
[2017-08-16] MEDS ORDERED: PROMETHAZINE HCL INJ 25 MG/ML VIAL ONE ×2 (16:02→17:56)
[2017-08-16] MEDS ORDERED: SODIUM CHLORIDE 0.9% 50ML 50 ML ONE ×2 (16:03→17:57)
[2017-08-16] MEDS ORDERED: MORPHINE SULFATE INJ 10 MG/ML VIAL ONE (17:04)
[2017-08-16] MEDS ORDERED: ONDANSETRON INJ 4 MG/2 ML VIAL IV ONE (17:15)
--- NOTE | 2017-08-16 19:08 | ED.PDOC ---
History of Present Illness - General Chief Complaint: Back Pain or Injury Time Seen by Provider: 08/16/17 15:25 Source: patient, RN notes reviewed, Vital Signs reviewed, family Exam Limitations: no limitations - History of Present Illness Timing/Duration: 24 hours Quality/Severity: moderate Back Pain Location: paraspinous muscles Improving Factors: nothing Worsening Factors: nothing Associated Symptoms: other - nausea/ vomiting/ coughing and wheezing Allergies/Adverse Reactions: Allergies Penicillins Allergy (Verified 08/09/17 21:31) Sulfa Antibiotics Allergy (Verified 08/09/17 21:31) Home Medications: Ambulatory Orders Baclofen 10 mg PO Q6H PRN 08/09/17 Digestive Enzymes [Pancreatin 8X] 1 tab PO DAILY 08/09/17 Doxycycline (Monohydrate) [Doxycycline Monohydrate] 100 mg PO BID 08/09/17 Hydrocodone-Acetaminophen [Hydrocodone Bitartrate/AC 10-325 mg] 1 tab PO Q4H Levocetirizine Dihydrochloride [Xyzal] 5 mg PO DAILY 08/09/17 Levothyroxine Sodium [Synthroid] 150 mcg PO DAILY 08/09/17 Meloxicam [Mobic] 15 mg PO DAILY 08/09/17 Metoprolol Succinate [Toprol Xl] 50 mg PO DAILY 08/09/17 Montelukast [Singulair] 10 mg PO DAILY 08/09/17 Pantoprazole Tablet [Protonix] 40 mg PO DAILY 08/09/17 Tizanidine HCl [Zanaflex] 4 mg PO BID 08/09/17 Albuterol Sulfate 1.25 mg INH PRN PRN 08/14/17 Fluticasone Propionate Hfa [Flovent Hfa] 110 mcg INH PRN PRN 08/14/17 Ondansetron HCl [Zofran] 4 mg PO Q6HR PRN #12 tab 08/14/17 amLODIPine BESYLATE [Norvasc] 10 mg PO DAILY #30 tab 08/14/17 Ondansetron [Zofran Odt] 8 mg PO Q8H PRN #12 tab 08/16/17 Promethazine Supp [Phenergan Suppository] 12.5 mg HI Q6H PRN #12 sup 08/16/17 Review of Systems - Review of Systems Constitutional: Denies: diaphoresis, fever, weakness EENTM: Denies: eye pain, ear pain, nose pain, throat pain Respiratory: States: cough, short of breath, wheezing Cardiology: States: no symptoms reported Gastrointestinal/Abdominal: States: nausea, vomiting Genitourinary: States: no symptoms reported Musculoskeletal: States: no symptoms reported Skin: States: no symptoms reported Neurological: Denies: headache, numbness, paresthesia, tingling, tremors, weakness Endocrine: States: no symptoms reported Past Medical History (General) - Patient Medical History Hx Seizures: No Hx Stroke: No Hx Asthma: Yes Hx of COPD: Yes Hx Cardiac Disorders: Yes Hx Congestive Heart Failure: No Hx Pacemaker: No Hx Hypertension: No Hx Thyroid Disease: No Hx Diabetes: No Hx Renal Disease: No Hx Cancer: No Hx of HIV: No Hx Hepatitis C: No Hx MRSA: No MRSA Source:: left knee - Vaccination History Hx Tetanus, Diphtheria Vaccination: No Hx Influenza Vaccination: Yes Hx Pneumococcal Vaccination: No Immunizations Up to Date: Yes - Social History Hx Tobacco Use: No Hx Chewing Tobacco Use: No Hx Alcohol Use: No Hx Substance Use: No Hx Substance Use Treatment: No Hx Depression: No Feels Threatened In Home Enviroment: No Feels Threatened In a Relationship: No Hx Physical Abuse: No Hx Emotional Abuse: No Hx Suspected Abuse: No - Female History Patient is a Female of Child Bearing Age (10 -59 yrs old): No Patient : No Family Medical History - Family History Mother Family History: Unknown Living Status: Cause of : Ovarian Cancer Hx Family Hypertension: Yes Hx Family Cancer: Yes Father Living Status: Cause of : Chronic Lung Disease Physical Exam - Physical Exam General Appearance: Alert, Anxious Eyes, Ears, Nose, Throat Exam: PERRL/EOMI, normal ENT inspection Neck Exam: non-tender, full range of motion, normal alignment, normal inspection Cardiovascular/Respiratory: regular rate, rhythm, no M/R/G, normal peripheral pulses, no JVD Peripheral Pulses: radial,right: 2+ Gastrointestinal/Abdominal: non tender, soft Back Exam: normal inspection, no CVA tenderness, no vertebral tenderness Extremity Exam: no evidence of injury, normal range of motion, non-tender, no pedal edema 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, no motor/sensory deficits, alert, oriented x 3 Skin Exam: normal color, warm/dry Progress - Progress Progress: 08/16/17 19:08 Laboratory Results WBC 8.9 K/mm3 (4.8-10.8) 08/16/17 15:51 RBC 4.58 M/mm3 (4.20-5.40) 08/16/17 15:51 Hgb 13.6 gm/dL (12.0-16.0) 08/16/17 15:51 Hct 40.4 % (36.0-47.0) 08/16/17 15:51 MCV 88.3 fl (81.0-99.0) 08/16/17 15:51 MCH 29.7 pg (27.0-31.0) 08/16/17 15:51 MCHC 33.7 g/dL (33.0-37.0) 08/16/17 15:51 RDW 15.1 % (11.5-14.5) H 08/16/17 15:51 Plt Count 337 K/mm3 (130-400) 08/16/17 15:51 MPV 8.4 fl (7.40-10.4) 08/16/17 15:51 Absolute Neuts (auto) 6.20 K/uL (1.8-6.8) 08/16/17 15:51 Absolute Lymphs (auto) 1.50 K/uL (1.0-3.4) 08/16/17 15:51 Absolute Monos (auto) 1.00 K/uL (0.2-0.8) H 08/16/17 15:51 Absolute Eos (auto) 0.10 K/uL (0.0-0.4) 08/16/17 15:51 Absolute Basos (auto) 0.10 K/uL (0.0-0.1) 08/16/17 15:51 Neutrophils % 69.7 % (42.0-78.0) 08/16/17 15:51 Lymphocytes % 17.2 % (20.0-50.0) L 08/16/17 15:51 Monocytes % 10.9 % (2.0-9.0) H 08/16/17 15:51 Eosinophils % 0.9 % (1.0-5.0) L 08/16/17 15:51 Basophils % 1.3 % (0.0-2.0) 08/16/17 15:51 Sodium 144 mmol/L (135-145) 08/16/17 15:51 Potassium 3.4 mmol/L (3.6-5.0) L 08/16/17 15:51 Chloride 109 mmol/L (101-111) 08/16/17 15:51 Carbon Dioxide 23 mmol/L (21-31) 08/16/17 15:51 Anion Gap 15.4 (12-18) 08/16/17 15:51 BUN 10 mg/dL (7-18) 08/16/17 15:51 Creatinine 0.81 mg/dL (0.6-1.3) 08/16/17 15:51 BUN/Creatinine Ratio 12.3 (10-20) 08/16/17 15:51 Random Glucose 134 mg/dL (70-105) H D 08/16/17 15:51 Serum Osmolality 287.9 mOsm/L (275-295) 08/16/17 15:51 Calcium 8.8 mg/dL (8.4-10.2) 08/16/17 15:51 Total Bilirubin 1.9 mg/dL (0.2-1.0) H D 08/16/17 15:51 AST 101 IU/L (10-42) H D 08/16/17 15:51 ALT 51 IU/L (10-60) 08/16/17 15:51 Alkaline Phosphatase 148 IU/L (42-121) H 08/16/17 15:51 Serum Total Protein 7.1 gm/dL (6.4-8.2) 08/16/17 15:51 Albumin 3.4 g/dl (3.2-5.5) 08/16/17 15:51 Globulin 3.7 gm/dL (2.3-3.5) H 08/16/17 15:51 Albumin/Globulin Ratio 0.9 (1.1-1.9) L 08/16/17 15:51 Amylase 96 U/L (28-100) 08/16/17 15:51 Lipase 142 U/L (22-51) H 08/16/17 15:51 Urine Color Yellow (Yellow) 08/16/17 17:15 Urine Appearance Clear (Clear) 08/16/17 17:15 Urine pH 5.5 (4.5-7.8) 08/16/17 17:15 Ur Specific [place] >= 1.030 (1.005-1.030) 08/16/17 17:15 Urine Protein 30 mg/dL 08/16/17 17:15 Urine Glucose (UA) Negative mg/dL (Negative) 08/16/17 17:15 Urine Ketones 15 mg/dL (NEGATIVE) H 08/16/17 17:15 Urine Blood Trace-intact (Negative) H 08/16/17 17:15 Urine Nitrite Negative 08/16/17 17:15 Urine Bilirubin Moderate (NEGATIVE) 08/16/17 17:15 Urine Urobilinogen 0.2 mg/dL (0.2-1.0) 08/16/17 17:15 Ur Leukocyte Esterase Negative (Negative) 08/16/17 17:15 Urine RBC 1-3 /hpf 08/16/17 17:15 Urine WBC 1-3 /hpf 08/16/17 17:15 Ur Epithelial Cells 1-3 /hpf 08/16/17 17:15 Amorphous Sediment 1+ 08/16/17 17:15 Urine Bacteria 1+ 08/16/17 17:15 Urine Mucus Small 08/16/17 17:15 Urine Yeast 1+ budding H 08/16/17 17:15 pt reports improvement, lab work shows a slightly increase lipase, yeast infection 08/16/17 19:25 discussed option of admission for bowel rest and IV pain/ nausea control; patient wants to try bowel rest and symptomatic treatment at home. Discussed chest xray findings and have f/u for repeat imaging next month. Discussed trend of lipase which patient felt was secondary to heavy meal of shake and bake pork last night prior to symptoms starting. Pt will return if the symptoms are not improving for repeat lab work; will f/u closely outpatient - EKG/XRAY/CT CT Ordered: No CT Interpretation Call Back: No Departure - Departure Clinical Impression: Cough, Elevated lipase Nausea and vomiting Qualifiers: Vomiting type: unspecified Vomiting Intractability: non-intractable Qualified Code(s): R11.2 - Nausea with vomiting, unspecified Back pain Qualifiers: Back pain location: back pain in unspecified location Chronicity: acute Back pain laterality: right Qualified Code(s): M54.9 - Dorsalgia, unspecified Time of Disposition: 19:28 Disposition: Discharge to Home or Self Care Condition: Good Departure Forms: ED Discharge - Pt. Copy, Patient Portal Self Enrollment Instructions: DI for Low Back Pain, Pancreatitis Diet: other - clear liquid diet - juice, jello, gatorade, broth for 48 hours then advance as tolerated to bland for one week then advance to regular diet Activity: increase activity as tolerated Referrals: Joy Salinas DO [Primary Care Provider] - 1-5 Days Prescriptions: Ondansetron [Zofran Odt] 8 mg PO Q8H PRN #12 tab PRN Reason: Nausea Promethazine Supp [Phenergan Suppository] 12.5 mg HI Q6H PRN #12 sup PRN Reason: Nausea Home Medications: Ambulatory Orders Baclofen 10 mg PO Q6H PRN 08/09/17 Digestive Enzymes [Pancreatin 8X] 1 tab PO DAILY 08/09/17 Doxycycline (Monohydrate) [Doxycycline Monohydrate] 100 mg PO BID 08/09/17 Hydrocodone-Acetaminophen [Hydrocodone Bitartrate/AC 10-325 mg] 1 tab PO Q4H Levocetirizine Dihydrochloride [Xyzal] 5 mg PO DAILY 08/09/17 Levothyroxine Sodium [Synthroid] 150 mcg PO DAILY 08/09/17 Meloxicam [Mobic] 15 mg PO DAILY 08/09/17 Metoprolol Succinate [Toprol Xl] 50 mg PO DAILY 08/09/17 Montelukast [Singulair] 10 mg PO DAILY 08/09/17 Pantoprazole Tablet [Protonix] 40 mg PO DAILY 08/09/17 Tizanidine HCl [Zanaflex] 4 mg PO BID 08/09/17 Albuterol Sulfate 1.25 mg INH PRN PRN 08/14/17 Fluticasone Propionate Hfa [Flovent Hfa] 110 mcg INH PRN PRN 08/14/17 Ondansetron HCl [Zofran] 4 mg PO Q6HR PRN #12 tab 08/14/17 amLODIPine BESYLATE [Norvasc] 10 mg PO DAILY #30 tab 08/14/17 Ondansetron [Zofran Odt] 8 mg PO Q8H PRN #12 tab 08/16/17 Promethazine Supp [Phenergan Suppository] 12.5 mg HI Q6H PRN #12 sup 08/16/17
[2017-08-16 19:54] VITALS: BP 150/80; O2SAT 96
== END 2017-08-16 19:53 | disposition home or self-care (01) ==
LOC: ER 14:41
DX: M54.9 Dorsalgia, unspecified (principal); R11.2 Nausea with vomiting, unspecified; R05 Cough; R79.89 Other specified abnormal findings of blood chemistry; J44.9 Chronic obstructive pulmonary disease, unspecified; J45.909 Unspecified asthma, uncomplicated; Z79.899 Other long term (current) drug therapy; Z88.0 Allergy status to penicillin; Z88.2 Allergy status to sulfonamides
CPT/HCPCS: 36415; 71046; 80053; 81001; 82150; 83690; 85025; A4216; J2270; J2405; J2550; J7030

== ENCOUNTER 2017-08-29 20:50 | Inpatient (IN) | payer MEDICARE ==
[2017-08-29] MEDS ORDERED: LACTATED RINGERS 1,000 ML IVS ONE (21:22)
--- NOTE | 2017-08-29 21:46 | ED.PDOC ---
History of Present Illness - General Chief Complaint: GI Problem Stated Complaint: Rt sided pain, n/v Time Seen by Provider: 08/29/17 21:13 Information Source: patient Exam Limitations: no limitations - History of Present Illness Initial Comments: Bonnie Bray 71 y/o female came to er with N/V since yesterday and sharp abdominal pain radiating to back since yesterday.had seen primary Md lab result that her Mds office called up showing abnormal result that she might have pancreatitis.She was then advised to come to hospital to get further testing.She was hospitalized for acute pancreatitis last month.has also been undergoin evaluation for pulmonary nodules and also has thoracic aortic aneurysm -4.7 cm since 2012.has been taking Doxycycline the last 3 years for MRSA infection on her left knee.had Mri Abd- normal GB,cystic,hepatic duct Abdominal Pain Onset Location: RUQ Pain Radiation: back Quality: sharpness Timing/Duration: 24 hours Improving Factors: nothing Worsening Factors: eating Associated Symptoms: other - see hpi Review of Systems - Review of Systems Constitutional: States: no symptoms reported EENTM: States: no symptoms reported Respiratory: States: see HPI Cardiology: States: no symptoms reported Gastrointestinal/Abdominal: States: see HPI Genitourinary: States: no symptoms reported Musculoskeletal: States: no symptoms reported Skin: States: no symptoms reported Neurological: States: see HPI Endocrine: States: no symptoms reported Hematologic/Lymphatic: States: no symptoms reported All other Systems: Reviewed and Negative, No Change from Baseline Past Medical History (General) - Patient Medical History Hx Seizures: No Hx Stroke: No Hx Asthma: Yes Hx of COPD: Yes Hx Cardiac Disorders: Yes Hx Congestive Heart Failure: No Hx Pacemaker: No Hx Hypertension: No Hx Thyroid Disease: No Hx Diabetes: No Hx Renal Disease: No Hx Cancer: No Hx of HIV: No Hx Hepatitis C: No Hx MRSA: No MRSA Source:: left knee Surgical History: other - thyroid,left knee - Vaccination History Hx Tetanus, Diphtheria Vaccination: No Hx Influenza Vaccination: Yes Hx Pneumococcal Vaccination: No - Social History Hx Tobacco Use: No Hx Chewing Tobacco Use: No Hx Alcohol Use: No Hx Substance Use: No Hx Substance Use Treatment: No Hx Depression: No Hx Physical Abuse: No Hx Emotional Abuse: No Hx Suspected Abuse: No - Activities of Daily Living Patient Lives Alone: No Grooming Ability: Independent Eating (Feeding) Ability: Independent Toileting Ability: Independent - Female History Patient : No Family Medical History - Family History Mother Family History: Unknown Living Status: Cause of : Ovarian Cancer Hx Family Hypertension: Yes Hx Family Cancer: Yes Father Family History: No Known Living Status: Cause of : Chronic Lung Disease Physical Exam - Physical Exam General Appearance: Alert, Comfortable, No apparent distress Eyes, Ears, Nose, Throat Exam: PERRL/EOMI, normal ENT inspection Neck: non-tender, supple Respiratory: chest non-tender, lungs clear, normal breath sounds Cardiovascular/Chest: normal peripheral pulses, regular rate, rhythm, no murmur Peripheral Pulses: No deficit Gastrointestinal/Abdominal: normal bowel sounds, soft, tenderness - RUQ no peritoneal signs Back Exam: no CVA tenderness, no vertebral tenderness Extremity: normal range of motion, no pedal edema, no calf tenderness Neurologic: alert, oriented x 3 Skin Exam: normal color, warm/dry Lymphatic: no adenopathy Progress - Progress Progress: 08/29/17 21:55 Vital Signs - 8 hr 08/29/17 08/29/17 21:07 21:52 Temperature 99.1 F Pulse Rate [lft 83 84 ] Respiratory 18 20 Rate Blood Pressure 133/90 118/78 [left] O2 Sat by Pulse 95 Oximetry - Results/Orders Results/Orders: 08/29/17 21:19 URINE CULTURE W/COLONY COUNT Stat 08/29/17 21:23 IV Care:Saline Lock per Protoc QSHIFT 08/29/17 22:05 URINALYSIS Stat 08/29/17 23:00 KCl 40Meq/Ns [NS W/ KCL 40 meq/Liter] 1,000 ml IVS .QD Laboratory Results - last 24 hr 08/29/17 08/29/17 08/29/17 21:19 21:23 21:23 WBC 9.5 RBC 4.42 Hgb 13.0 Hct 39.2 MCV 88.7 MCH 29.4 MCHC 33.2 RDW 15.0 H Plt Count 297 MPV 8.6 Absolute Neuts (auto) 5.30 Absolute Lymphs (auto) 2.90 Absolute Monos (auto) 1.00 H Absolute Eos (auto) 0.20 Absolute Basos (auto) 0.10 Neutrophils % 56.2 Lymphocytes % 30.4 Monocytes % 10.2 H Eosinophils % 1.9 Basophils % 1.3 Sodium 141 Potassium 2.8 L Chloride 103 Carbon Dioxide 26 Anion Gap 14.8 BUN 20 H Creatinine 1.13 BUN/Creatinine Ratio 17.7 Random Glucose 118 H Serum Osmolality 285.0 Lactic Acid Calcium 8.3 L Total Bilirubin 2.7 H* AST 62 H ALT 41 Alkaline Phosphatase 129 H Creatine Kinase CK-MB (CK-2) CK-MB (CK-2) % Troponin I Serum Total Protein 6.8 Albumin 3.2 Globulin 3.6 H Albumin/Globulin Ratio 0.9 L Amylase 93 Lipase 134 H Urine Color Yellow Urine Appearance Clear Urine pH 6.0 Ur Specific [place] <= 1.005 Urine Protein Negative Urine Glucose (UA) Negative Urine Ketones Negative Urine Blood Negative Urine Nitrite Negative Urine Bilirubin Negative Urine Urobilinogen 1.0 Ur Leukocyte Esterase Small H Urine RBC 0-1 Urine WBC 3-5 H Ur Epithelial Cells 1-3 Urine Bacteria 1+ Urine Yeast Rare 08/29/17 08/29/17 21:51 21:51 WBC RBC Hgb Hct MCV MCH MCHC RDW Plt Count MPV Absolute Neuts (auto) Absolute Lymphs (auto) Absolute Monos (auto) Absolute Eos (auto) Absolute Basos (auto) Neutrophils % Lymphocytes % Monocytes % Eosinophils % Basophils % Sodium Potassium Chloride Carbon Dioxide Anion Gap BUN Creatinine BUN/Creatinine Ratio Random Glucose Serum Osmolality Lactic Acid 1.8 Calcium Total Bilirubin AST ALT Alkaline Phosphatase Creatine Kinase 23 L CK-MB (CK-2) 0.8 CK-MB (CK-2) % Not Reportable Troponin I < 0.02 Serum Total Protein Albumin Globulin Albumin/Globulin Ratio Amylase Lipase Urine Color Urine Appearance Urine pH Ur Specific [place] Urine Protein Urine Glucose (UA) Urine Ketones Urine Blood Urine Nitrite Urine Bilirubin Urine Urobilinogen Ur Leukocyte Esterase Urine RBC Urine WBC Ur Epithelial Cells Urine Bacteria Urine Yeast Departure - Departure Clinical Impression: Pancreatitis, recurrent, Hypokalemia due to loss of potassium Abdominal pain Qualifiers: Abdominal location: right upper quadrant Qualified Code(s): R10.11 - Right upper quadrant pain Nausea & vomiting Qualifiers: Vomiting type: unspecified Vomiting Intractability: non-intractable Qualified Code(s): R11.2 - Nausea with vomiting, unspecified Time of Disposition: 23:40 Disposition: Admit Patient Condition: Fair Departure Forms: Patient Portal Self Enrollment Referrals: Joy Salinas DO [Primary Care Provider] - 1-2 Weeks Home Medications: Ambulatory Orders Baclofen 10 mg PO Q6H PRN 08/09/17 Digestive Enzymes [Pancreatin 8X] 1 tab PO DAILY 08/09/17 Doxycycline (Monohydrate) [Doxycycline Monohydrate] 100 mg PO BID 08/09/17 Hydrocodone-Acetaminophen [Hydrocodone Bitartrate/AC 10-325 mg] 1 tab PO Q4H Levocetirizine Dihydrochloride [Xyzal] 5 mg PO DAILY 08/09/17 Levothyroxine Sodium [Synthroid] 150 mcg PO DAILY 08/09/17 Meloxicam [Mobic] 15 mg PO DAILY 08/09/17 Metoprolol Succinate [Toprol Xl] 50 mg PO DAILY 08/09/17 Montelukast [Singulair] 10 mg PO DAILY 08/09/17 Pantoprazole Tablet [Protonix] 40 mg PO DAILY 08/09/17 Tizanidine HCl [Zanaflex] 4 mg PO BID 08/09/17 Albuterol Sulfate 1.25 mg INH PRN PRN 08/14/17 Fluticasone Propionate Hfa [Flovent Hfa] 110 mcg INH PRN PRN 08/14/17 Ondansetron HCl [Zofran] 4 mg PO Q6HR PRN #12 tab 08/14/17 amLODIPine BESYLATE [Norvasc] 10 mg PO DAILY #30 tab 08/14/17 Ondansetron [Zofran Odt] 8 mg PO Q8H PRN #12 tab 08/16/17 Promethazine Supp [Phenergan Suppository] 12.5 mg VT Q6H PRN #12 sup 08/16/17 Decision To Admit - Decistion To Admit Decision to Admit Reason: Admit from ER Decision to Admit Date: 08/29/17 - D/W Yue Vega-FAREED/Hospitalist Decision to Admit Time: 23:38
[2017-08-29] MEDS ORDERED: ONDANSETRON INJ 4 MG/2 ML VIAL IV ONE (22:44)
[2017-08-29] MEDS ORDERED: fentaNYL CITRATE INJ 50 MCG/ML AMP IV ONE (22:56)
[2017-08-29] MEDS: KCL 40MEQ/NS 1,000 ML IVS PRN (23:10)
--- NOTE | 2017-08-30 00:16 | HP ---
SUPERVISING PHYSICIAN: Wesley Chahal MD CHIEF COMPLAINT: Right sided abdominal pain. HISTORY OF PRESENT ILLNESS: Ms. Bray is a 71-year-old, female who presented to the Emergency Room last night secondary to nausea, vomiting and sharp abdominal pain that radiated to her back on the right side. She had just recently been hospitalized for acute pancreatitis on 08/10/17 and discharged on 08/14/17. On discharge, she was found to have acute pancreatitis of uncertain etiology with an abdominal MRCP noted at discharge with mild edematous changes around the pancreas, normal appearance of the common hepatic and common bile ducts, cystic duct and gallbladder. She also has a history of a left knee infection for which she has been taking doxycycline for well over 3 months. In the Emergency Room last night, chemistry showed she had just a mildly elevated lipase at 134. Amylase was normal. Bilirubin initially was elevated at 2.7 with an AST elevated at 62, normal ALT. Alkaline phosphatase slightly elevated at 129. Cardiac enzymes were with troponin less than 0.02. She continued to have a significant amount of pain in the right upper quadrant and based on previous history and current lab findings, the patient was admitted for further evaluation of the pain with concerns for pancreatitis and better control of her nausea and vomiting. The patient is admitted in stable condition. PAST MEDICAL HISTORY: 1. Multiple acute episodes of pancreatitis requiring hospitalization with recent MRCP without any significant findings on last admission in July. 2. Chronic knee infection being treated with doxycycline for the last 3 months. 3. History of lung nodules. 4. Hypothyroidism on supplementation. 5. Hypertension. 6. Hyperlipidemia. PAST SURGICAL HISTORY: 1. Partial thyroidectomy. 2. Tonsillectomy and adenoidectomy. 3. Hernia repair at a very young age. 4. Left knee arthroscopy with irrigation. 5. Transesophageal echocardiogram. CURRENT MEDICATIONS: 1. Amlodipine 10 mg daily. 2. Zanaflex 4 mg b.i.d. 3. Carafate 1 tablet a.c. and h.s. 4. Phenergan 25 mg q.6h. as needed. 5. Protonix 40 mg daily. 6. Singulair 10 mg daily. 7. Toprol XL 50 mg daily. 8. Meloxicam 15 mg daily. 9. Synthroid 150 mcg daily. 10. Xyzal 1 tablet daily. 11. [place] 10/325 mg 2 tablet q.4h. as needed for pain. 12. Flovent 110 mcg inhaled as needed. 13. Doxycycline 100 mg b.i.d. 14. Baclofen 20 mg q.6h. as needed for pain. 15. Albuterol sulfate inhaled by nebulizer 1.25 mg as needed. ALLERGIES: PENICILLIN, SULFA. FAMILY HISTORY: Father from chronic obstructive pulmonary disease complications. Mother from ovarian cancer. She has a brother with Alzheimer's and another brother with CLL. PRIMARY CARE PHYSICIAN: Dr. Salinas in [place]. SOCIAL HISTORY: The patient has a distance history of smoking, but quit 30 years previously, but her continues to smoke in the house. She is exposed to secondhand smoke. She has no alcohol or illicit drug use. REVIEW OF SYSTEMS: CONSTITUTIONAL: Denies any fevers, chills, or malaise. HEENT: Denies headaches, sore throat, nasal congestion, earaches. RESPIRATORY: As noted in history of present illness, multiple lung nodules, but denies any shortness of breath, coughing or wheezing. CARDIOVASCULAR: She has a history of a stable aortic aneurysm measuring 4.7 cm. Denies chest pain, palpitations or syncopal episodes. GASTROINTESTINAL: As noted in history of present illness, right upper quadrant pain with some nausea and vomiting. Denies any diarrhea or constipation. GENITOURINARY: Denies dysuria, hematuria, polyuria or other urinary symptoms. MUSCULOSKELETAL: Chronic back pain. NEUROLOGIC: Denies any syncope, ataxia, seizures or other neurologic deficits. PHYSICAL EXAMINATION: VITAL SIGNS: Temperature 99. Pulse 77. Blood pressure 125/82. Respirations 18. Saturation 96% on room air. Admission weight 86.8 kg. GENERAL: On admission to the Medical/Surgical Floor, the patient appears to be comfortable in no acute distress. She is alert. HEENT: Tympanic membranes clear bilaterally. Oropharynx is pink, moist without any lesions. NECK: Supple, nontender with full range of motion. No jugular venous distention noted. RESPIRATORY: Lungs clear to auscultation bilaterally without any rhonchi, wheezes, or rales. CARDIOVASCULAR: Regular rate and rhythm without any appreciable murmurs, gallops, or rubs. ABDOMEN: Soft with some tenderness noted in the right upper quadrant, but no peritoneal signs, no rebound tenderness. Normal bowel sounds. BACK: No significant tenderness, no vertebral tenderness. EXTREMITIES: She moves all extremities ad zari. There is no cyanosis, clubbing or edema. NEUROLOGIC: The patient is alert and oriented times three. LABORATORY: On admission, white count 9,500, hemoglobin 13, hematocrit 39.2, platelet count 297,000, differential without a left shift. Chemistry showed a hypokalemia with potassium 2.8, BUN 20, creatinine 1.13, calcium 8.3, lactic acid 8.1, bilirubin elevated at 2.7, AST elevated at 62, ALT 41, alkaline phosphatase 129. Troponin less than 0.02. Lipid panel showed triglycerides 78 , cholesterol 110, LDL 59, HDL 39. Amylase normal at 93, lipase slightly elevated at 134. Urinalysis showed just a small amount of leukocyte esterase. Microscopic showed 0 to 1 RBCs, 3 to 5 WBCs with 1 to 3 epithelials, 1+ bacteria , rare yeast. MICROBIOLOGY: Urine culture pending. RADIOLOGY: Abdominal ultrasound pending. ASSESSMENT: 1. Right upper quadrant pain with concerns for pancreatitis. 2. 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 3. Elevated liver enzymes with elevated bilirubin, uncertain etiology. 4. Hypothyroidism on supplementation requiring modification of medications. 5. Poorly controlled hypertension. 6. Chronic anxiety. 7. History of 4.7 cm ascending aortic aneurysm. 8. Electrolyte imbalance with hypokalemia. 9. History of lung nodules being followed in the outpatient setting. PLAN: The patient will be admitted to the Medical/Surgical Floor for further evaluation and treatment of her nausea and vomiting with concern for pancreatitis. She was made NPO. We will do an ultrasound of her abdomen in the morning. Dr. Soria has been consulted and we will await his recommendations. We will anticipate length of stay to be at least 1 to 2 days. Until clinically stable, we will continue to monitor the patient closely and treat appropriately. #[id number] [facility]
[2017-08-30] MEDS ORDERED: SODIUM CHLORIDE 0.9% (FLUSH) 10 ML SYG IV PRN (00:28)
[2017-08-30] MEDS ORDERED: ONDANSETRON INJ 4 MG/2 ML VIAL IV PRN (00:30)
[2017-08-30] MEDS ORDERED: IV SET AND CAP CHANGE INJ INJ SCH (00:30)
[2017-08-30] MEDS ORDERED: ALBUTEROL SULFATE 2.5 MG/3 ML VIAL NEB PRN (00:35)
[2017-08-30] MEDS ORDERED: HYDROcodone 10MG/APAP 325MG 1 EA TAB PO PRN (01:20)
[2017-08-30] MEDS ORDERED: HYDROcodone 10MG/APAP 325MG 1 EA TAB ONE (01:24)
[2017-08-30] MEDS: HYDROcodone 10MG/APAP 325MG 1 EA TAB PO PRN (01:47)
[2017-08-30] MEDS: PANTOPRAZOLE SODIUM IV 40 MG VIAL IV SCH (06:09)
[2017-08-30] MEDS ORDERED: KETOROLAC TROMETHAMINE INJ 30 MG/ML VIAL IV PRN (06:30)
[2017-08-30] MEDS ORDERED: KETOROLAC TROMETHAMINE INJ 30 MG/ML VIAL IV SCH ×2 (07:00→12:00)
[2017-08-30] MEDS: KCL 40MEQ/NS 1,000 ML IVS PRN ×3 (07:14→23:51)
[2017-08-30] MEDS: ALBUTEROL SULFATE 2.5 MG/3 ML VIAL NEB SCH ×4 (07:50→19:52)
--- NOTE | 2017-08-30 11:11 | US ---
EXAM DESCRIPTION: Abdomen,Complete: Ultrasound. CLINICAL HISTORY: elevated bilirubin COMPARISON: None Available. TECHNIQUE: Transabdominal scannin-dimensional and Doppler modes. FINDINGS: Gallbladder: Normal size with no intraluminal stones or sludge. No wall thickening, 1.5 mm. No fluid. Nontender with transducer pressure. Common bile duct: Normal caliber 5.1 mm. Liver: Increased echogenicity. No intrahepatic dilation. Hepatopedal flow of the portal vein with normal caliber. Smooth capsule with no ascites. Long axis of the right lobe is 15.4 cm.. Pancreas: Normal echogenicity and size. Pancreatic duct not seen. Abdominal aorta: Normal caliber from the proximal segment to the bifurcation, less than 2 cm. IVC: visualized; normal caliber. Spleen normal echogenicity; long axis measurement is 8.9 cm. Right kidney: 8.7 cm long axis. Thin cortex with normal echogenicity. Smooth capsule. No hydronephrosis.. Left kidney: 9.4 cm long axis. Thin cortex with normal echogenicity. Smooth capsule. No hydronephrosis. IMPRESSION: 1. Steatosis of the liver which is normal size. Normal ducts. Normal vascularity. No ascites. Smooth capsule. 2. Normal ultrasound of the gallbladder, common bile duct, pancreas, and spleen. 3. Bilateral kidneys with cortical thinning and normal echogenicity which is most likely age-related. Otherwise unremarkable. Correlate with renal function labs. 4. Normal caliber of the abdominal aorta and IVC. Electronically signed by: Rahul Cowart MD 08/30/2017 11:09 AM CDT
[2017-08-30] MEDS: KETOROLAC TROMETHAMINE INJ 30 MG/ML VIAL IV SCH ×3 (12:06→23:50)
[2017-08-30] MEDS ORDERED: SUCRALFATE 1 GM TAB PO ONE (13:34)
[2017-08-30] MEDS: ALPRAZolam 0.5 MG TAB PO PRN ×2 (14:48→20:51)
--- NOTE | 2017-08-30 16:15 | CONS ---
DATE OF CONSULTATION: 08/30/17 REASON FOR CONSULTATION: Upper abdominal pain, idiopathic pancreatitis. CHIEF COMPLAINT: Upper abdominal pain. HISTORY OF PRESENT ILLNESS: Ms. Bray is a 71 year-old female who presented to the E. R. due to nausea, vomiting and upper abdominal pain. She was recently admitted at the end of July. At that time she had a lipase over 1,000 , imaging consistent with acute pancreatitis. ERCP showed docholithiasis, normal sized bile duct and normal pancreatic duct. She was treated symptomatically, treated with IV fluids and improved, was discharged home. However, she reports her abdominal pain never completely resolved and worsened again. She rates it as moderate in intensity currently. She reports it has improved since admission. She states she is hungry and would like to start eating. PAST MEDICAL HISTORY: 1. Postsurgical infection in left knee. She had initial surgery for it 3 years ago and she reports she has been on doxycycline for about 2-1/2 years for a postsurgical infection related to Staphylococcus in her knee. 2. Otherwise she has had no other GI issues in the past. 3. Chronic knee infection. 4. Hypothyroidism. 5. Hypertension. PAST SURGICAL HISTORY: No prior surgeries. She has never had any prior endoscopies. 1. Thyroidectomy. 2. Tonsillectomy. 3. Left knee surgeries. HOME MEDICATIONS: Please see medication reconciliation at admission. ALLERGIES: PENICILLIN AND SULFA DRUGS. FAMILY HISTORY: No family history of GI malignancy or pancreatic disease. Father with chronic obstructive pulmonary disease. Mother with ovarian cancer. SOCIAL HISTORY: She denies alcohol use. She denies tobacco abuse. Denies drug abuse. REVIEW OF SYSTEMS: A 10 point review of systems was performed and was otherwise negative. PHYSICAL EXAMINATION: VITAL SIGNS: Stable and normal. GENERAL: She appears comfortable in no acute distress. HEENT: Normocephalic and atraumatic. Oropharynx is pink and moist without any lesions. NECK: Supple, non-tender with full range of motion. RESPIRATORY: Lungs are clear to auscultation and percussion bilaterally without any rhonchi, wheezing or rales. HEART: Regular rate and rhythm without any appreciable murmurs, gallops, or rubs. ABDOMEN: Soft with some tenderness noted in the epigastrium and right upper quadrant. She has no rebound tenderness or guarding. She has no marked bowel sounds. No hepatomegaly. BACK: No specific tenderness. No vertebral tenderness. EXTREMITIES: She moves all extremities well. There is no cyanosis, clubbing or edema. NEUROLOGIC: The patient is alert and oriented times three. She has no unilateral weakness or paresthesias. LABORATORY: Labs were reviewed. See her chart for lab review. In brief, she has a mildly elevated liver test with bilirubin around 2. Lipase is elevated in the low 100s. Imaging was reviewed. Ultrasound this admission was unremarkable with no evidence of cholelithiasis. ASSESSMENT AND PLAN: The patient is a 71 year-old female who was admitted with recurrent abdominal pain, nausea and vomiting with a recent episode of acute idiopathic pancreatitis. I think she has drug induced pancreatitis from doxycycline. She may also have drug induced liver injury. Other considerations include non-alcoholic steatohepatitis. RECOMMENDATIONS: 1. Continue IV fluid resuscitation. 2. Start clear liquid diet and advance as tolerated. 3. Discontinue doxycycline. 4. If the patient is able to tolerate more than clear liquids, she is likely ready for discharge home. 5. She will need close followup in GI clinic for further outpatient workup of her chronic liver disease and recent episode of pancreatitis. 6. Would speak with Dr. Hess about whether or not she needs to continue antibiotics at this point. #[id number] [facility]
[2017-08-30] MEDS: SUCRALFATE 1 GM TAB PO SCH ×2 (16:36→20:51)
[2017-08-30] MEDS ORDERED: METOPROLOL TARTRATE 25 MG TAB PO ONE (17:35)
[2017-08-30] MEDS: tiZANidine 4 MG TAB PO SCH (20:51)
[2017-08-30] MEDS ORDERED: ENOXAPARIN SODIUM 40 MG/0.4 ML SYG SUBCU SCH (21:00)
[2017-08-31] MEDS: PANTOPRAZOLE SODIUM IV 40 MG VIAL IV SCH (06:37)
[2017-08-31] MEDS: SUCRALFATE 1 GM TAB PO SCH ×2 (06:38→11:09)
[2017-08-31] MEDS ORDERED: MELOXICAM 7.5 MG TAB ONE (07:21)
[2017-08-31] MEDS ORDERED: LEVOTHYROXINE SODIUM 0.075 MG TAB ONE ×2 (07:21→09:00)
[2017-08-31] MEDS: ALBUTEROL SULFATE 2.5 MG/3 ML VIAL NEB SCH (07:58)
[2017-08-31] MEDS: KCL 40MEQ/NS 1,000 ML IVS PRN (08:12)
[2017-08-31] MEDS: ALPRAZolam 0.5 MG TAB PO PRN (08:15)
[2017-08-31] MEDS: HYDROcodone 10MG/APAP 325MG 1 EA TAB PO PRN (08:15)
[2017-08-31] MEDS: tiZANidine 4 MG TAB PO SCH (08:33)
[2017-08-31] MEDS ORDERED: amLODIPine BESYLATE 5 MG TAB PO SCH (09:00)
[2017-08-31] MEDS ORDERED: NON-FORMULARY MEDICATION 1 EA MIS (Meloxicam [Mobic] 15 MG) PO SCH (09:00)
[2017-08-31] MEDS ORDERED: MONTELUKAST 10 MG TAB PO SCH (09:00)
[2017-08-31] MEDS ORDERED: PANTOPRAZOLE SODIUM TAB 40 MG PO SCH (09:00)
[2017-08-31] MEDS ORDERED: NON-FORMULARY MEDICATION 1 EA MIS (Levothyroxine Sodium [Synthroid] 150 MCG) PO SCH (09:00)
[2017-08-31] MEDS ORDERED: CETIRIZINE HCL 10 MG TAB PO SCH (09:00)
[2017-08-31 10:36] VITALS: BP 107/72; TEMP 97.7; O2SAT 98
[2017-08-31] MEDS ORDERED: METOPROLOL SUCCINATE XL 50 MG TAB PO SCH (13:00)
[2017-09-01] MEDS ORDERED: LEVOTHYROXINE SODIUM 0.075 MG TAB PO SCH (06:30)
--- NOTE | 2017-09-01 08:17 | DS ---
SUPERVISING PHYSICIAN: Wesley Chahal MD ADMISSION DIAGNOSIS: 1. Right upper quadrant pain with concerns for pancreatitis. 2. 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 3. Elevated liver enzymes with elevated bilirubin, uncertain etiology. 4. Hypothyroidism on supplementation requiring modification of medications with low TSH. 5. Poorly controlled hypertension. 6. Chronic anxiety. 7. History of 4.7 cm ascending aortic aneurysm. 8. Electrolyte imbalance with hypokalemia. 9. History of lung nodules being followed in the outpatient setting. 10. Concern for possible urinary tract infection. DISCHARGE DIAGNOSIS: 1. Recurrent abdominal pain with nausea and vomiting, likely secondary to acute idiopathic pancreatitis induced by doxycycline. 2. Drug-induced liver injury secondary to doxycycline with considerations for nonalcoholic steatohepatitis. 3. Hypothyroidism on supplementation with low TSH requiring modification of thyroid medications. 4. Poorly controlled hypertension. 5. Chronic anxiety. 6. History of 4.7 cm ascending aortic aneurysm, stable on current studies. 7. Hypokalemia, resolved. 8. History of lung nodules being followed in the outpatient setting. 9. Questionable urinary tract infection with cultures pending, but the patient being asymptomatic with no antibiotic continued at discharge awaiting final culture results. REASON FOR HOSPITALIZATION: Ms. Bray is a 71-year-old, female who initially presented to the Emergency Room on 08/29/17 with complaints of nausea , vomiting and sharp abdominal pain that radiated to her back on the right side. She had just recently been hospitalized for acute pancreatitis on and discharged on 08/14/17. On discharge, she was found to have acute pancreatitis of uncertain etiology with an abdominal MRCP noted at discharge with mild edematous changes around the pancreas, normal appearance of the common hepatic and common bile ducts, cystic duct and gallbladder. She also has a history of a chronic left knee infection with MRSA and having been taking doxycycline for well over 3 years. In the Emergency Room, chemistry showed she had just a mildly elevated lipase at 134. Amylase was normal. Bilirubin initially was elevated at 2.7 with an AST elevated at 62. Cardiac enzymes were normal with troponin less than 0.02. She continued to have a significant amount of pain in the right upper quadrant and based on previous history and current lab findings, the patient was admitted for further evaluation of the pain with concerns for pancreatitis and better control of her nausea and vomiting. The patient was admitted in stable condition. LABORATORY: On admission, white count 9,500. At discharge, it was 8,100. Hemoglobin and hematocrit at discharge were 11.1 and 33.4. Platelet count 224, 00. Differential was without a left shift. Chemistries on admission showed a mild hypokalemia with potassium 2.8. At discharge, potassium had normalized to 4.2. All other electrolytes were within normal limits. BUN on discharge was 13. Creatinine on discharge was 0.85. Bilirubin was elevated on admission at 2.7. After initiation of treatment and prior to discharge, it was down to 1.9. Liver functions showed elevation of AST at 62 and it normalized to 39 at discharge. ALT was within normal limits on admission as well as discharge at 28. Alkaline phosphatase showed elevation at 129 on admission and at discharge was down to 84. TSH was less than 0.06. Troponin less than 0.02. Urinalysis on admission showed a small amount of leukocyte esterase. Otherwise, microscopic was within normal limits. MICROBIOLOGY: Urine culture was pending. RADIOLOGY: Abdominal ultrasound after admission and per radiologic interpretation noted steatosis of the liver which was normal sized, normal ducts , normal vascularity, no ascites, smooth capsule. Normal ultrasound of the gallbladder, common bile duct, pancreas and spleen. Please see additional findings of that report. HOSPITAL COURSE: Ms. Bray was admitted as noted for questionable acute pancreatitis from the Emergency Room. She was made NPO and started on pain medicine and antiemetics. She was given Toradol for pain control. No antibiotics were started at time of admission as she was asymptomatic in regards to questionable urinary tract infection, white count was normal and she was afebrile. She did well with fluids and was seen in consultation by gastrointestinal specialist, Dr. Soria, who in agreement felt more likely the findings were consistent on ultrasound and previous admissions with idiopathic pancreatitis likely secondary to doxycycline. The patient was advanced to a regular diet on the day of discharge and was tolerating with no complaints. She was no longer having any pain on the morning of discharge and was felt clinically stable enough to be continued in the outpatient setting. PHYSICAL EXAMINATION AT DISCHARGE: GENERAL: The patient was comfortable, resting, no apparent distress. CHEST: Lungs clear to auscultation. HEART: Regular rate and rhythm. ABDOMEN: Soft, nontender with positive bowel sounds. EXTREMITIES: No cyanosis, clubbing or edema. NEUROLOGIC: Alert and oriented times 3. PLAN: The patient is discharged on 08/31/17 with instructions to followup with Dr. Salinas as scheduled in 7 days. She was to also schedule appointment with Dr. Soria, owner oral surgeon, office number [phone], in [place] or arrange through Dr. Salinas's office. She was to resume her home medications as instructed with noted change of stopping the doxycycline. I did try to contact Dr. Hess, however, she has not returned my phone calls and we need to followup with Dr. Hess regarding questionable continuation of any antibiotics. I have encouraged fluids to prevent dehydration. Her TSH was low, but I did not modify her thyroid medication which will need to be addressed at followup. She was told to return to the hospital should she have any concerning symptoms. Diet at discharge was regular diet as tolerated. Activity to increase as tolerated. No new medications were prescribed. Modification in medication regimen was to stop doxycycline. Condition on discharge was stable and improved. #[id number] [facility]
[2017-09-01] MEDS ORDERED: MELOXICAM 7.5 MG TAB PO SCH (09:00)
== END 2017-08-31 11:40 | disposition home or self-care (01) | DRG 439 ==
LOC: ER 20:50 → MS 08-30 00:14 → OBSVTOIN 08-30 00:14
PROVIDERS: ADMIT Nurse Practitioner Family; ATTEND Nurse Practitioner Family
DX: K85.30 Drug induced acute pancreatitis without necrosis or infection (principal); N39.0 Urinary tract infection, site not specified; M00.069 Staphylococcal arthritis, unspecified knee; K76.0 Fatty (change of) liver, not elsewhere classified; I10 Essential (primary) hypertension; E89.0 Postprocedural hypothyroidism; T36.4X5A Adverse effect of tetracyclines, initial encounter; F41.9 Anxiety disorder, unspecified; I71.2 Thoracic aortic aneurysm, without rupture; E87.6 Hypokalemia; R91.8 Other nonspecific abnormal finding of lung field; G89.29 Other chronic pain; M54.9 Dorsalgia, unspecified; B95.62 Methicillin resistant Staphylococcus aureus infection as the cause of diseases classified elsewhere; Y92.9 Unspecified place or not applicable; Z88.0 Allergy status to penicillin; Z88.2 Allergy status to sulfonamides; Z79.1 Long term (current) use of non-steroidal anti-inflammatories (NSAID); Z79.891 Long term (current) use of opiate analgesic; Z87.891 Personal history of nicotine dependence; Z79.899 Other long term (current) drug therapy

== ENCOUNTER 2017-09-07 01:38 | Emergency (ER) | payer MEDICARE ==
[2017-09-07 01:55] VITALS: O2SAT 99
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
[2017-09-07] MEDS ORDERED: POTASSIUM CHLORIDE 20 MEQ TAB PO ONE (02:19)
--- NOTE | 2017-09-07 02:19 | RAD ---
EXAM: AP CHEST RADIOGRAPH CLINICAL INDICATION: Shortness of breath. COMPARISON: Compared to chest radiograph of August 16, 2017. FINDINGS: Cardiac size and pulmonary vasculature are normal. 10 mm nodular density superimposed over the upper left lung is not present on today's examination. Lungs are clear. No pleural effusions or pneumothorax. No hilar or mediastinal lymphadenopathy. No mediastinal widening. No extraluminal bowel gas under the hemidiaphragms. Partially visualized degenerative disease in the shoulders and spine. Bones are intact on this single view. IMPRESSION: Normal for age portable AP chest radiograph. Electronically signed by: Yvan Campbell MD 09/07/2017 2:17 AM CDT
[2017-09-07] MEDS ORDERED: MAGNESIUM SULFATE PREMIX 2GM 2 GM in PREMIX BAG 1 BAG IVPB ONE (02:26)
[2017-09-07] MEDS ORDERED: MAGNESIUM SULFATE PREMIX 2GM 50 ML IVPB ONE (02:32)
[2017-09-07] MEDS ORDERED: KCL 20MEQ/D5 1/2NS 1,000 ML IVS PRN (02:56)
[2017-09-07 03:41] VITALS: TEMP 98.2
[2017-09-07 03:53] VITALS: BP 150/100
== END 2017-09-07 04:10 | disposition short-term general hospital (02) ==
LOC: ER 01:38
DX: E87.6 Hypokalemia (principal); E83.42 Hypomagnesemia; R06.00 Dyspnea, unspecified; I71.2 Thoracic aortic aneurysm, without rupture; R91.8 Other nonspecific abnormal finding of lung field; I25.2 Old myocardial infarction; I10 Essential (primary) hypertension; J45.909 Unspecified asthma, uncomplicated; E11.9 Type 2 diabetes mellitus without complications; Z79.899 Other long term (current) drug therapy; Z88.0 Allergy status to penicillin; Z88.2 Allergy status to sulfonamides
CPT/HCPCS: 36415; 71045; 80048; 80076; 82550; 82553; 83880; 84484; 85025; 85610; 85730; 93005; J3475

== ENCOUNTER 2017-09-11 00:43 | Emergency (ER) | payer MEDICARE ==
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
[2017-09-11 17:47] VITALS: BP 115/63; TEMP 98.4; O2SAT 99
== END 2017-09-11 02:31 | disposition home or self-care (01) ==
LOC: ER 00:43
DX: R06.02 Shortness of breath (principal); E87.6 Hypokalemia; E83.42 Hypomagnesemia; I25.2 Old myocardial infarction; E11.9 Type 2 diabetes mellitus without complications; I10 Essential (primary) hypertension; J45.909 Unspecified asthma, uncomplicated; Z87.19 Personal history of other diseases of the digestive system; Z79.899 Other long term (current) drug therapy; Z88.0 Allergy status to penicillin; Z88.2 Allergy status to sulfonamides

== ENCOUNTER 2017-09-16 05:45 | Emergency (ER) | payer MEDICARE ==
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
--- NOTE | 2017-09-16 07:33 | RAD ---
Clinical History : shortness of breath , MAIN Exam : Portable AP view of the chest 09/16/2017 6:30 AM CDT Comparisons : Portable AP view of the chest September 07, 2017 Findings : The lungs are clear without focal consolidation or pleural effusion. The heart is normal in size. The mediastinal contours are normal in appearance. The thoracic spine is age appropriate. The shoulders are unremarkable. Limited evaluation of the upper abdomen demonstrates no gross abnormalities. Impression: No acute cardiopulmonary disease (stable appearing chest). Electronically signed by: Heena Santiago MD 09/16/2017 7:32 AM CDT
[2017-09-16 07:34] VITALS: O2SAT 99
[2017-09-16] MEDS ORDERED: predniSONE 20 MG TAB PO ONE (08:02)
[2017-09-16] MEDS ORDERED: predniSONE 20 MG TAB ONE (08:04)
[2017-09-16 08:30] VITALS: BP 148/79; TEMP 98.7
== END 2017-09-16 08:28 | disposition home or self-care (01) ==
LOC: ER 05:45
DX: J04.0 Acute laryngitis (principal); K21.9 Gastro-esophageal reflux disease without esophagitis; I25.2 Old myocardial infarction; I10 Essential (primary) hypertension; E11.9 Type 2 diabetes mellitus without complications; J45.909 Unspecified asthma, uncomplicated; I25.10 Atherosclerotic heart disease of native coronary artery without angina pectoris; Z88.0 Allergy status to penicillin; Z88.2 Allergy status to sulfonamides; Z79.899 Other long term (current) drug therapy; Z87.891 Personal history of nicotine dependence
CPT/HCPCS: 36415; 71045; 80053; 82550; 82553; 84484; 85025; J7512

== ENCOUNTER 2017-12-01 18:40 | Inpatient (IN) | payer MEDICARE ==
[2017-12-01] MEDS ORDERED: ONDANSETRON INJ 4 MG/2 ML VIAL IV ONE (19:03)
[2017-12-01] MEDS ORDERED: MORPHINE SULFATE INJ 10 MG/ML VIAL IV ONE ×2 (19:03→20:50)
[2017-12-01] MEDS ORDERED: PANTOPRAZOLE SODIUM IV 40 MG VIAL IV ONE (19:06)
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
--- NOTE | 2017-12-01 19:21 | RAD ---
EXAM DESCRIPTION: AP view of the chest CLINICAL HISTORY:72 years Female, CHEST PAIN Comparison: September 07, 2017 FINDINGS: No focal lung consolidation. No pleural effusion. No pneumothorax. Cardiac and mediastinal silhouette is unremarkable. No acute osseous abnormality. Soft tissues are unremarkable. IMPRESSION: No acute findings. No focal lung consolidation. Electronically signed by: Jose Moss DO 12/01/2017 7:19 PM CDT
--- NOTE | 2017-12-01 20:58 | CT ---
CT ABDOMEN PELVIS WITH IV CONTRAST Exam date: 12/01/2017 8:06 PM CDT Comparison: CT abdomen pelvis August 09, 2017. CT chest August 03, 2017 Indication: Epigastric pain, right upper quadrant Technique: Multiple helical axial images were obtained through the abdomen and pelvis without intravenous contrast. Sagittal and coronal reformatted images are reviewed as well. All CT scans at this facility use dose modulation, iterative reconstruction, and/or weight-based dosing when appropriate to reduce radiation dose to as low as reasonably achievable. Findings: Lung bases: Small nodular densities in the right lower lobe appear unchanged. Mild dependent atelectasis noted. Liver: Low-attenuation is present suggestive of fatty changes. Gallbladder/biliary: Gallbladder appears unremarkable. No calcified gallstones. No evidence of biliary ductal dilatation. Pancreas: There is stranding adjacent to the pancreatic body and tail suggestive of acute pancreatitis. No obvious peripancreatic fluid collection. Stranding extends inferiorly within the mesentery. There is mild prominence of the main pancreatic duct measuring up to 3 mm in the region of the neck and body. No obvious pancreatic necrosis. Spleen: Unremarkable. Adrenals: Unremarkable. Kidneys and ureters: No evidence of renal or ureteral stones. No hydronephrosis. Bladder: Unremarkable. Pelvic organs: Unremarkable. Bowel: Colonic diverticula are present. No evidence of bowel obstruction. No bowel wall thickening. Appendix appears unremarkable. Peritoneum: No free air. No significant free fluid. Lymph nodes: Unremarkable. Vasculature: Mild aortic atherosclerosis noted. Soft tissues: Unremarkable. Bones: Degenerative changes of the lumbar spine noted. Impression: 1. Findings suggestive of acute pancreatitis. 2. Mild prominence of the main pancreatic duct which can be followed up with pancreatic protocol CT as appropriate following resolution of peripancreatic inflammatory changes. 3. Hepatic steatosis. Electronically signed by: Luis Mack MD 12/01/2017 8:56 PM CDT
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
[2017-12-01] MEDS ORDERED: ONDANSETRON INJ 4 MG/2 ML VIAL IV PRN (22:36)
[2017-12-01] MEDS ORDERED: DEX 5% W/NACL 0.45% 1000ML 1,000 ML IVS PRN (22:36)
[2017-12-01] MEDS ORDERED: ACETAMINOPHEN SUPPOSITORY 650 MG PR PRN (22:36)
[2017-12-01] MEDS ORDERED: HYDROmorphone HCL INJ 2 MG/ML VIAL IV PRN (22:44)
[2017-12-01] MEDS ORDERED: HYDROmorphone HCL INJ 2 MG/ML VIAL ONE (22:56)
[2017-12-01] MEDS ORDERED: PANTOPRAZOLE SODIUM IV 40 MG VIAL IV SCH (23:00)
[2017-12-01] MEDS ORDERED: ENOXAPARIN SODIUM 40 MG/0.4 ML SYG SUBCU SCH (23:00)
[2017-12-01] MEDS: IV SET AND CAP CHANGE INJ INJ SCH (23:00)
[2017-12-01] MEDS: MORPHINE SULFATE INJ 10 MG/ML VIAL IV PRN (23:12)
[2017-12-02] MEDS: MORPHINE SULFATE INJ 10 MG/ML VIAL IV PRN ×7 (01:15→22:28)
[2017-12-02] MEDS ORDERED: POTASSIUM CHLORIDE 20 MEQ TAB PO ONE (08:36)
[2017-12-02] MEDS ORDERED: MAGNESIUM SULFATE PREMIX 2GM 2 GM in PREMIX BAG 1 BAG IVPB ONE (08:37)
[2017-12-02] MEDS: ALBUTEROL SULFATE 2.5 MG/3 ML VIAL NEB SCH ×2 (08:40→12:52)
[2017-12-02] MEDS ORDERED: MAGNESIUM SULFATE PREMIX 2GM 50 ML IVPB ONE (08:42)
[2017-12-02] MEDS ORDERED: SODIUM CHLORIDE 0.9% (FLUSH) 10 ML SYG IV SCH (09:00)
[2017-12-02] MEDS: KCL 20MEQ/D5 1/2NS 1,000 ML IVS PRN ×2 (11:02→21:55)
[2017-12-02] MEDS ORDERED: METOPROLOL TARTRATE INJ 5 MG/5 ML VIAL IV PRN (11:11)
[2017-12-02] MEDS: ALBUTEROL SULFATE 2.5 MG/3 ML VIAL NEB PRN (11:16)
[2017-12-02] MEDS: LEVOTHYROXINE SODIUM 0.075 MG TAB PO SCH (12:11)
[2017-12-02] MEDS ORDERED: LEVALBUTEROL NEBS 1.25 MG/3 ML VIAL NEB ONE (12:50)
[2017-12-02] MEDS ORDERED: DOXYCYCLINE HYCLATE IV 100 MG VIAL IVPB ONE ×2 (12:53→20:09)
[2017-12-02] MEDS ORDERED: SODIUM CHLORIDE 0.9% 250ML 250 ML ONE ×2 (12:53→20:09)
--- NOTE | 2017-12-02 12:59 | PN ---
DATE: 12/02/17 SUPERVISING PHYSICIAN: Alberto Howell M.D. SUBJECTIVE: The patient is sitting up in her bed. Her is at the bedside. She feels like her pain is somewhat under better control and she has had no nausea or vomiting. She does say she has a headache. She is concerned about her doxycycline not being started since she has to doxycycline chronically. I assured her that we would have doxycycline as an IV. She has no complaints of chest pain or shortness of breath. OBJECTIVE: VITAL SIGNS: She is afebrile, heart rate runs between 100 and 108, blood pressure is 138/91, respiratory rate 22, O2 sat 95% on room air. RESPIRATORY: Essentially clear to auscultation bilaterally. CARDIAC: Regular rate and rhythm. It is at times mildly tachycardic. GASTROINTESTINAL: Abdomen is soft. It is nondistended. It is slightly tender to the epigastric area but there is no rebound tenderness. No guarding. Bowel sounds are hypoactive. NEUROLOGIC: She is awake, alert and oriented times three. LABORATORY: WBCs have gone up slightly to 13,200 with hemoglobin 13.6 and hematocrit 42.8. Sodium 137, potassium is slightly low at 3.4. Magnesium is also low at 1.5. Bilirubin is 2.2. Amylase is up to 616 and lipase is up to 1, 080. Triglycerides are 141, total cholesterol 135, LDL is 63 and HDL is 46. All other labs and films have been reviewed via the EMR. ASSESSMENT: 1. Acute pancreatitis as evidenced by CT scan and elevated amylase and lipase. 2. Nausea and vomiting secondary to #1. 3. Uncontrolled hypertension. 4. Anxiety. 5. History of 4.7 cm ascending aortic aneurysm that is reported stable. 6. Electrolyte imbalances, mainly hypokalemia and hypomagnesemia. 7. Hypothyroidism. 8. History of lung nodules. PLAN: We will continue present supportive care. She will continue on bowel rest. I have added metoprolol IV if her blood pressure gets out of control. I have also continued the doxycycline antibiotics that she takes chronically. I will do lab in the morning. We will continue with good pulmonary hygiene. We will advance her diet as soon as the patient's pain is under control. #[id number] [facility]
[2017-12-02] MEDS: DOXYCYCLINE HYCLATE IV 100 MG in SODIUM CHLORIDE 0.9% 250ML 250 ML IVPB SCH ×2 (13:04→23:07)
[2017-12-02] MEDS: LEVALBUTEROL NEBS 1.25 MG/3 ML VIAL NEB SCH ×2 (16:18→20:17)
[2017-12-02] MEDS: ORPHENADRINE CITRATE 30 MG/ML AMP IV PRN (16:56)
[2017-12-02] MEDS: ACETAMINOPHEN SUPPOSITORY 650 MG PR PRN ×2 (16:56→23:14)
[2017-12-02] MEDS: ENOXAPARIN SODIUM 40 MG/0.4 ML SYG SUBCU SCH (20:35)
[2017-12-02] MEDS: PANTOPRAZOLE SODIUM IV 40 MG VIAL IV SCH (20:35)
[2017-12-03] MEDS: ALBUTEROL SULFATE 2.5 MG/3 ML VIAL NEB PRN (00:29)
[2017-12-03] MEDS: ACETAMINOPHEN SUPPOSITORY 650 MG PR PRN ×2 (05:06→21:34)
[2017-12-03] MEDS: LEVOTHYROXINE SODIUM 0.075 MG TAB PO SCH (06:01)
[2017-12-03] MEDS: LEVALBUTEROL NEBS 1.25 MG/3 ML VIAL NEB SCH ×4 (07:43→20:20)
[2017-12-03] MEDS ORDERED: DOXYCYCLINE HYCLATE IV 100 MG VIAL IVPB ONE ×2 (07:46→19:54)
[2017-12-03] MEDS ORDERED: SODIUM CHLORIDE 0.9% 250ML 250 ML ONE ×2 (07:46→19:54)
[2017-12-03] MEDS ORDERED: FLUTICASONE PROP 0.05% NASAL 16 GM BTTL BNAS PRN (09:00)
[2017-12-03] MEDS: KCL 20MEQ/D5 1/2NS 1,000 ML IVS PRN ×2 (09:06→19:38)
[2017-12-03] MEDS: MORPHINE SULFATE INJ 10 MG/ML VIAL IV PRN ×4 (09:34→22:23)
[2017-12-03] MEDS: DOXYCYCLINE HYCLATE IV 100 MG in SODIUM CHLORIDE 0.9% 250ML 250 ML IVPB SCH ×2 (11:54→23:48)
--- NOTE | 2017-12-03 11:56 | PN ---
DATE: 12/03/17 SUPERVISING PHYSICIAN: Alberto Howell M.D. SUBJECTIVE: The patient is sleeping. She awakens easily. She continues complaints of right upper quadrant and epigastric abdominal pain but it is much improved since her admission. She only needed 2 doses of pain medications overnight. We discussed her discharge plan and her schedule for advancing her diet we will plan in the morning. She was agreeable to that. Otherwise no complaints of chest pain, nausea, vomiting, diarrhea, constipation or shortness of breath. OBJECTIVE: VITAL SIGNS: T max 24 hours is 100.8. Heart rate has run between 102 and 115. Blood pressure 146/93, respiratory rate 20, O2 sat is 91% on room air. RESPIRATORY: Essentially clear to auscultation bilaterally. CARDIAC: Mildly tachycardic rate, regular rhythm. GASTROINTESTINAL: Abdomen is soft, nondistended. Mildly tender in the epigastric area. Bowel sounds are positive. NEUROLOGIC: She is awake, alert and oriented times three. LABORATORY: White count 10.5. There is no left shift on differential. Hemoglobin and hematocrit are stable at 13.1 and 40. Electrolytes are within normal limits. BUN 10, creatinine 1.08. Total bilirubin 2.6. Amylase has improved to 332 and lipase has improved to 285. All other labs and films have been reviewed via the EMR. ASSESSMENT: 1. Acute pancreatitis as evidenced by CT scan and elevated amylase and lipase. 2. Nausea and vomiting secondary to #1. 3. Uncontrolled hypertension. 4. Anxiety. 5. History of 4.7 cm ascending aortic aneurysm that is reported stable. 6. Electrolyte imbalances, mainly hypokalemia and hypomagnesemia. 7. Hypothyroidism. 8. History of lung nodules. PLAN: We will continue present supportive care. Plan on bowel rest for another 24 hours. Hopefully in the morning we can advance her diet. I have ordered a direct and indirect bilirubin as well as routine lab with amylase and lipase in the morning. She will need to followup with her primary care physician, Dr. Joy Salinas, on discharge as well as Dr. Sosa, GI specialist from [place]. She would like to see Dr. Sosa at his next time in [place]. I have encouraged good pulmonary hygiene. We will continue to monitor her closely and follow as needed. Dr. Howell is the collaborating physician available for consultation. #[id number] [facility]
[2017-12-03] MEDS: PANTOPRAZOLE SODIUM IV 40 MG VIAL IV SCH (20:55)
[2017-12-03] MEDS: ENOXAPARIN SODIUM 40 MG/0.4 ML SYG SUBCU SCH (20:55)
[2017-12-03] MEDS ORDERED: METOPROLOL TARTRATE 25 MG TAB PO ONE (21:14)
[2017-12-04] MEDS: KCL 20MEQ/D5 1/2NS 1,000 ML IVS PRN ×2 (05:33→15:59)
[2017-12-04] MEDS: MORPHINE SULFATE INJ 10 MG/ML VIAL IV PRN ×7 (05:56→21:49)
[2017-12-04] MEDS: LEVOTHYROXINE SODIUM 0.075 MG TAB PO SCH (06:02)
[2017-12-04] MEDS ORDERED: ACETAMINOPHEN 325 MG TAB PO ONE (06:40)
[2017-12-04] MEDS: LEVALBUTEROL NEBS 1.25 MG/3 ML VIAL NEB SCH ×4 (07:35→20:29)
[2017-12-04] MEDS ORDERED: DOXYCYCLINE HYCLATE IV 100 MG VIAL IVPB ONE ×2 (07:36→20:20)
[2017-12-04] MEDS ORDERED: SODIUM CHLORIDE 0.9% 250ML 250 ML ONE ×2 (07:36→20:20)
[2017-12-04] MEDS ORDERED: METOPROLOL SUCCINATE XL 50 MG TAB PO SCH (09:00)
[2017-12-04] MEDS: ALBUTEROL SULFATE 2.5 MG/3 ML VIAL NEB PRN (09:04)
--- NOTE | 2017-12-04 10:46 | RAD ---
Procedure: XR CHEST 2 VIEWS Exam Date: 12/04/2017 Ordering Provider: Kalia Vasquez NP Clinical Indication: Acute pancreatitis; fever Comparison: 12/01/2017 Findings: Cardiomediastinal silhouette is within normal limits. No focal lung consolidation. No pleural effusion. No pneumothorax. No acute osseous abnormality. Impression: 1. No acute abnormalities in the chest. Electronically signed by: Rakan Odell MD 12/04/2017 10:44 AM CDT
[2017-12-04] MEDS: DOXYCYCLINE HYCLATE IV 100 MG in SODIUM CHLORIDE 0.9% 250ML 250 ML IVPB SCH (12:24)
--- NOTE | 2017-12-04 12:54 | US ---
Study: Right upper quadrant abdominal ultrasound. Indication: acute pancreatitis, fever and elevated TBIL Technical: Multiplanar, grayscale sonogram of the right upper quadrant of the abdomen obtained. Comparison: CT December 01, 2017. Findings: The liver is diffusely increased in echogenicity consistent with hepatic steatosis. The liver measures 14.7 cm in length. No discrete live mass. Mild gallbladder sludge noted without definite stones or gallbladder wall thickening. The common bile duct measures 4 mm in diameter. No intrahepatic biliary ductal dilatation. The right kidney is unremarkable. The visualized portions of the aorta and inferior vena cava are normal. Pancreatic duct mildly prominent measuring up to 3 mm. Pancreas not well evaluated due to shadowing bowel gas. Impression: Hepatic steatosis. Mild gallbladder sludge. Mild pancreatic ductal dilatation but poor evaluation of the pancreas due to shadowing bowel gas. Electronically signed by: Justino Leal MD 12/04/2017 12:52 PM CDT
--- NOTE | 2017-12-04 16:49 | PN ---
SUPERVISING PHYSICIAN: Gordo Merrill MD DATE: 12/04/17 SUBJECTIVE: The patient continues to have mild some abdominal pain in the left upper quadrant. She does remain n.p.o. She has not had any nausea or vomiting. She has run a low-grade fever and now has developed a slight cough but no shortness of breath or chest pains. OBJECTIVE: VITAL SIGNS: T-max 100.4, pulse 98, blood pressure 124/80, respirations 20, saturation 94% on nasal cannula at 1.5 liters at rest. I&O show a positive balance of 1180, 2630 in, 1450 out, weight 85.9 kg. GENERAL: The patient appears to be comfortable and in no acute distress. She is alert. CHEST: Lungs were diminished towards the bases bilaterally, just very faint rhonchi heard in the posterior aspect bilaterally towards the bases. HEART: Regular rate and rhythm. ABDOMEN: Obese, soft with some tenderness on palpation of the right upper quadrant. No rebound tenderness. Bowel sounds are present. EXTREMITIES: No cyanosis, clubbing, or edema. NEUROLOGIC: She is alert and oriented x3. LABORATORY: White count is up to 13,700 with hemoglobin 13.5 and hematocrit 41.8. Platelet count at 189,000, differential shows to be without a left shift. Chemistries show normal electrolytes, potassium 4.4 with BUN 6, creatinine 0.9, glucose 91, calcium 8.4, bilirubin remains elevated at 2.8. All other liver functions showed to be within normal limits with C-reactive protein at 18.3. Amylase now has normalized to 86 and lipase has returned to baseline at 64. Repeat urinalysis is pending. Group A strep screen was negative. MICROBIOLOGY: Group A strep cultures pending. RADIOLOGY: Chest x-ray this morning per radiology interpretation, 2-view chest , showed no acute abnormalities in the chest. Abdominal ultrasound per radiology interpretation showed hepatic steatosis with mild gallbladder sludge and mild pancreatic ductal dilation but poor elevation of the pancreas due to shadowing the bowel gas. ASSESSMENT: 1. Acute on chronic pancreatitis with amylase and lipase now returning to baseline with patient continuing with a fever and elevated CRP, uncertain etiology.. 2. Nausea and vomiting secondary to #1, improving. 3. Uncontrolled hypertension showing to be stable. 4. Anxiety. 5. Hepatic steatosis as noted on CT and ultrasound studies. 6. History of 4.7 cm ascending aortic aneurysm showing to be stable. . 7. Electrolyte imbalance with mild hypokalemia and hypomagnesemia, now resolved with fluids. 8. Hypothyroidism on supplementation. 9. Longstanding history of lung nodules. PLAN: At this point we will continue bowel rest for an additional 24 hours given that she continues to have some right upper quadrant pain. With the fever will go ahead and treat with Tylenol as needed and encourage deep inspiratory effort and incentive spirometry to hopefully prevent fever resulting from atelectasis. Will continue with bronchial hygiene with Xopenex breathing treatments as needed. Will reevaluate in the morning with repeat labs and abdominal series and hopefully be able to advance the patient's diet tomorrow as she continues to improve and no longer having any pain on palpation on abdominal assessment. Once she is showing to be stable she will need continued followup in an outpatient setting with Dr. Dominick Salinas, her primary care physician, as well as Dr. Soria, GI specialist in [place]. Will anticipate another 24 to 48 hours hospitalization until the patient can advance diet and showing to be clinically stable. Until then, we will continue to monitor and treat as needed. #[id number] [facility]
[2017-12-04] MEDS: ENOXAPARIN SODIUM 40 MG/0.4 ML SYG SUBCU SCH (20:35)
[2017-12-04] MEDS: PANTOPRAZOLE SODIUM IV 40 MG VIAL IV SCH (20:36)
[2017-12-04] MEDS: SODIUM CHLORIDE 0.9% (FLUSH) 10 ML SYG IV PRN (20:37)
[2017-12-04] MEDS ORDERED: metroNIDAZOLE IV PREMIX 500MG 100 ML IVPB ONE (21:06)
[2017-12-04] MEDS: NYSTATIN SUSPENSION 5 ML UD MT SCH (21:15)
[2017-12-04] MEDS: levoFLOXacin 750MG IV 750 MG in PREMIX BAG 1 BAG IVPB SCH (21:15)
[2017-12-04] MEDS: ACETAMINOPHEN SUPPOSITORY 650 MG PR PRN (21:35)
[2017-12-04] MEDS: METOPROLOL TARTRATE INJ 5 MG/5 ML VIAL IV SCH (22:12)
[2017-12-04] MEDS: diphenhydrAMINE HCL 50 MG/ML VIAL IV PRN (22:19)
[2017-12-04] MEDS: metroNIDAZOLE IV PREMIX 500MG 500 MG in PREMIX BAG 1 BAG IVPB SCH (23:13)
[2017-12-05] MEDS: MORPHINE SULFATE INJ 10 MG/ML VIAL IV PRN ×4 (00:19→08:25)
[2017-12-05] MEDS: DOXYCYCLINE HYCLATE IV 100 MG in SODIUM CHLORIDE 0.9% 250ML 250 ML IVPB SCH (00:23)
[2017-12-05] MEDS: IV SET AND CAP CHANGE INJ INJ SCH (00:24)
[2017-12-05] MEDS ORDERED: metroNIDAZOLE IV PREMIX 500MG 100 ML IVPB ONE ×3 (04:14→21:43)
[2017-12-05] MEDS: KCL 20MEQ/D5 1/2NS 1,000 ML IVS PRN ×3 (04:26→21:47)
[2017-12-05] MEDS: METOPROLOL TARTRATE INJ 5 MG/5 ML VIAL IV SCH (04:30)
[2017-12-05] MEDS: metroNIDAZOLE IV PREMIX 500MG 500 MG in PREMIX BAG 1 BAG IVPB SCH ×3 (06:14→21:47)
[2017-12-05] MEDS: LEVOTHYROXINE SODIUM 0.075 MG TAB PO SCH (06:31)
[2017-12-05] MEDS: LEVALBUTEROL NEBS 1.25 MG/3 ML VIAL NEB SCH ×4 (07:39→19:48)
[2017-12-05] MEDS: NYSTATIN SUSPENSION 5 ML UD MT SCH ×4 (08:55→20:42)
[2017-12-05] MEDS ORDERED: tiZANidine 4 MG TAB PO PRN (09:43)
[2017-12-05] MEDS ORDERED: RANITIDINE HCL 300 MG PO SCH (09:45)
[2017-12-05] MEDS: HYDROcodone 10MG/APAP 325MG 1 EA TAB PO PRN ×2 (10:22→19:54)
[2017-12-05] MEDS: Wellbutrin XL 150 MG TAB PO SCH (10:23)
[2017-12-05] MEDS: MELOXICAM 7.5 MG TAB PO SCH (10:23)
[2017-12-05] MEDS: DOXYCYCLINE HYCLATE CAP 100 MG CAP PO SCH ×2 (10:24→20:41)
[2017-12-05] MEDS: busPIRone HCL 5 MG TAB PO SCH ×2 (10:24→20:41)
[2017-12-05] MEDS: MONTELUKAST 10 MG TAB PO SCH (10:26)
[2017-12-05] MEDS: guaiFENesin ER TAB 600 MG TAB PO SCH ×2 (11:49→20:41)
[2017-12-05] MEDS: PANCREATIN PO SCH ×2 (14:48→20:42)
--- NOTE | 2017-12-05 18:24 | CONS ---
DATE OF CONSULTATION: 12/05/17 REFERRING PHYSICIAN: Hospitalist Service HISTORY OF PRESENT ILLNESS: The patient is a 72 year-old patient that was admitted through the Emergency Room with some abdominal pain with radiation to the back and to the chest. She is known to have a history of an aortic aneurysm and history of pancreatitis. She underwent a CT scan that revealed inflammatory changes involving the pancreas with a normal bile duct. She was admitted and has improved symptomatically but has continued to have a persistently elevated bilirubin, so an ultrasound was ordered today which revealed gallbladder sludge. PAST MEDICAL HISTORY: 1. Myocardial infarction times 2. 2. 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 3. History of lung nodules. 4. Hypothyroidism. 5. Hypertension. 6. Hyperlipidemia. 7. Sleep apnea. PAST SURGICAL HISTORY: 1. Status post partial thyroidectomy. 2. Tonsillectomy and adenoidectomy. 3. Hernia repair. 4. Left knee arthroscopy with irrigation. 5. Transesophageal echocardiogram. CURRENT MEDICATIONS: She is on multiple medications includin. Doxycycline. ALLERGIES: PENICILLIN, SULFA AND HYDROMORPHONE. FAMILY HISTORY: Positive for chronic obstructive pulmonary disease, ovarian cancer, Alzheimer's, chronic lymphocytic leukemia. SOCIAL HISTORY: The patient quit smoking more than 30 years ago but her does smoke. She denies alcohol use for many, many years. REVIEW OF SYSTEMS: No fever or chills. She currently has a headache. She denies cough, shortness of breath, chest pain. She denies fatty food intolerance, change in her bowel habits, specifically no hematemesis, hematochezia or melena. She denies urinary symptoms. PHYSICAL EXAMINATION: VITAL SIGNS: Afebrile, normotensive. Pulse rate is in the 80s. GENERAL: She is in no acute distress, but she is quite sleepy. HEENT: Reveals sclera to be nonicteric. Mucous membranes are moist. NECK: Without adenopathy. BACK: Without CVA tenderness. CHEST: She has equal breath sounds bilaterally. HEART: Regular rhythm. ABDOMEN: There is mild tenderness in the epigastrium without rebound, mass or guarding. Bowel sounds are positive. PELVIC AND RECTAL: Examinations are deferred. IMPRESSION: 1. Acute pancreatitis which is resolving of uncertain etiology. 2. Hypertension. 3. Anxiety. 4. Thoracic aortic aneurysm which is noted to be stable. 5. Hypothyroidism. 6. History of lung nodules. 7. Hyperbilirubinemia which is resolving. 8. History of sleep apnea. PLAN: To continue clear liquid diet and make the patient NPO at midnight. Continue the antibiotics, including her doxycycline. She has previously been seen by gastroenterology which was Dr. Sosa. Apparently he obtained an MRCP which revealed no bile duct pathology and he felt that she had idiopathic pancreatitis. This does not rule out the possibility of passing a stone as the cause for her pancreatitis. She does not drink, so alcoholic pancreatitis is quite unlikely. I will discuss the case in the morning with the medical records auditor here tomorrow morning, make the patient NPO and consider cholecystectomy if the GI physician agrees this is a reasonable thing. There is also the possibility that a cardiology consultation should be obtained prior to proceeding with cholecystectomy and this could change our plans. #[id number] [facility] SYSTEMAudrey
[2017-12-05] MEDS: diphenhydrAMINE HCL 50 MG/ML VIAL IV PRN (20:28)
[2017-12-05] MEDS: levoFLOXacin 750MG IV 750 MG in PREMIX BAG 1 BAG IVPB SCH (20:40)
[2017-12-05] MEDS: ENOXAPARIN SODIUM 40 MG/0.4 ML SYG SUBCU SCH (20:41)
--- NOTE | 2017-12-05 22:15 | PN ---
DATE: 12/05/17 SUPERVISING PHYSICIAN: Gordo Merrill M.D. SUBJECTIVE: The patient notes that her pain is much less today, although she continues to have some coughing. She has had no recurrence of nausea and vomiting, but she has run a fever up to a T max of 101.1 last night. OBJECTIVE: VITAL SIGNS: T max temperature is 101.1, pulse 94, blood pressure 133/79, respirations 16, satting 98% on nasal cannula at 1.5 liters. I's and O' s show a balance of 220 with 1370 in, 1550 out. Weight is 84.8 kg. GENERAL: The patient appears to be comfortable in no acute distress. She is alert. CHEST: Lungs are clear to auscultation, just slightly diminished towards the bases. HEART: Regular rate and rhythm. ABDOMEN: Soft, non-tender. Positive bowel sounds. EXTREMITIES: Without any clubbing, cyanosis or edema. NEUROLOGIC : She is alert and oriented times three. LABORATORY: White count now has normalized to 10,500, hemoglobin is stable at 11.4, hematocrit 35.3, platelet count 196,000. Differential does show to be without a left shift today. Chemistries show normal electrolytes with BUN 6, creatinine 0.95. Bilirubin now is down to 1.6 compared to a maximum of 2.8. C reactive protein was elevated at 18.3. Lipase now has normalized at 45. MICROBIOLOGY: Blood cultures remain negative up to current date with Group A Streptococcus culture pending. RADIOLOGY: Abdominal x-ray per radiology interpretation showed hepatic steatosis, mild gallbladder sludge with mild pancreatic ductal dilation with poor evaluation of the pancreas due to shadowing of bowel gas. ASSESSMENT: 1. Acute on chronic pancreatitis with amylase and lipase now at baseline levels with patient having run a fever in the last 24 hours and continues with elevated CRP. At this point etiology is uncertain. Question related to gallstones with with ultrasound findings of sludge in the gallbladder pending surgical consultation. 2. Nausea and vomiting secondary to #1, improving. 3. Uncontrolled hypertension showing to be stable. 4. Anxiety. 5. Hepatic steatosis as noted on CT and ultrasound studies. 6. History of 4.7 cm ascending aortic aneurysm showing to be stable. 7. Electrolyte imbalance with mild hypokalemia and hypomagnesemia, now resolved with fluids. 8. Hypothyroidism on supplementation. 9. Longstanding history of lung nodules. PLAN: Will continue with bowel rest but advance her diet today as tolerated. I have changed her medications to her home medications as well as stopped her IV pain management and will go with p.o. management for pain. Hopefully she will advance her diet and tomorrow and be able to discharge later tomorrow. I have also consulted with Dr. Lowe in regards to the gallbladder findings on ultrasound and the fact that she has had a persistent elevated total bilirubin over the last 3 or 4 days. Will continue with bronchial hygiene and breathing treatments. Encourage incentive spirometry to prevent any atelectasis. Again will hopefully be able to discharge tomorrow with close clinical followup with Joy Salinas, her primary care provider as well as Dr. Sosa, GI specialist in [place]. Until discharge will continue to monitor and treat as needed. #[id number] [facility]
[2017-12-06] MEDS ORDERED: metroNIDAZOLE IV PREMIX 500MG 100 ML IVPB ONE (05:42)
[2017-12-06] MEDS: metroNIDAZOLE IV PREMIX 500MG 500 MG in PREMIX BAG 1 BAG IVPB SCH (05:49)
[2017-12-06] MEDS: LEVOTHYROXINE SODIUM 0.075 MG TAB PO SCH (05:51)
[2017-12-06] MEDS ORDERED: PANTOPRAZOLE SODIUM TAB 40 MG PO SCH (06:30)
[2017-12-06] MEDS: LEVALBUTEROL NEBS 1.25 MG/3 ML VIAL NEB SCH ×4 (08:45→20:16)
[2017-12-06] MEDS ORDERED: MAGNESIUM HYDROXIDE 30 ML UD ONE (10:44)
[2017-12-06] MEDS: DOXYCYCLINE HYCLATE CAP 100 MG CAP PO SCH ×2 (11:12→20:33)
[2017-12-06] MEDS: MELOXICAM 7.5 MG TAB PO SCH (11:12)
[2017-12-06] MEDS: guaiFENesin ER TAB 600 MG TAB PO SCH ×2 (11:16→20:34)
[2017-12-06] MEDS: MONTELUKAST 10 MG TAB PO SCH (11:17)
[2017-12-06] MEDS: Wellbutrin XL 150 MG TAB PO SCH (11:17)
[2017-12-06] MEDS: PROMETHAZINE W/CODEINE SYR 5 ML UD PO PRN ×2 (11:18→16:05)
[2017-12-06] MEDS: PANCREATIN PO SCH ×2 (11:18→20:37)
[2017-12-06] MEDS: NYSTATIN SUSPENSION 5 ML UD MT SCH ×4 (11:19→20:33)
[2017-12-06] MEDS: busPIRone HCL 5 MG TAB PO SCH ×2 (11:20→20:33)
--- NOTE | 2017-12-06 11:46 | CONS ---
DATE OF CONSULTATION: 12/06/17 CHIEF COMPLAINT: Abdominal pain, pancreatitis with abnormal CAT scan of the pancreas. HISTORY OF PRESENT ILLNESS: This is a 72-year-old female admitted through the Emergency Room at [facility] for abdominal pain with radiation to the back. CAT scan showed evidence of inflammatory changes involving the pancreas as well as elevated lipase and leukocytosis. She has history of coronary artery disease status post acute coronary events times two in 2015. She has been worked up by Dr. Mcfarland in the past. She has not had any further cardiac workup since 2016. She has also been evaluated by Dr. Soria for pancreatitis who felt this problem was related to idiopathic pancreatitis. The patient continues to have her gallbladder. She is on chronic doxycycline for chronic knee replacement. Over a period of her hospitalization, she elevated her bilirubin and liver enzymes remained normal. PAST MEDICAL HISTORY: 1. Coronary artery disease. 2. Knee infection status post knee replacement. 3. Lung nodules. 4. Hypothyroidism. 5. Hypertension. 6. Hyperlipidemia. 7. Sleep apnea. PAST SURGICAL HISTORY: 1. Thyroidectomy. 2. Tonsillectomy. 3. Hernia repair. 4. Left knee arthroscopy. 5. Transesophageal echocardiogram. CURRENT MEDICATIONS: Please see medication reconciliation form. ALLERGIES: PENICILLIN, SULFA, HYDROMORPHONE. FAMILY HISTORY: Negative for colorectal cancer. Positive for chronic obstructive pulmonary disease, ovarian cancer, Alzheimer's, chronic lymphocytic leukemia. SOCIAL HISTORY: Negative for tobacco or alcohol use. She denies recreational drugs. REVIEW OF SYSTEMS: Twelve-point review of systems was done and was negative. PHYSICAL EXAMINATION: VITAL SIGNS: Pulse 80. Temperature 98.0. Respirations 20. Pulse oximetry 97 % on room air. GENERAL: No acute distress. HEENT: Nonicteric. Mucous membranes are moist. NECK: Supple without adenopathy. BACK: Without CVA tenderness. CHEST: She has clear breath sounds bilaterally. HEART: Regular S1, S2 with splitting of S2. There is elevated JVD above the earlobe. ABDOMEN: Soft, nontender, nondistended. There is no rebound in the right upper quadrant. Epigastrium is nontender as well. LABORATORY: During this visit, laboratories include elevated lipase bilirubin, abnormal CAT scan were reviewed. Also, a chest x-ray that showed no major abnormality and no cardiomediastinal. Blood cultures have been negative with no growth after 24 hours. ASSESSMENT/PLAN: 1. Pancreatitis. The differential is wide. In the presence of gallbladder, biliary pancreatitis is still in the differential although this is not my highest suspicion. I suspect the patient has a component of medication induced pancreatitis due to chronic doxycycline. I suggest stopping all antibiotics for now and reassess for 48 hours. Trend lipase and liver function tests if she clinically does not improve. 2. The patient has a vast cardiac history. A fresh cardiac evaluation should be done, especially in the presence of elevated jugular venous distention. This could represent elevated right heart pressures. If the patient is going to have further procedures, this should be addressed properly by cardiology. 3. Endoscopic ultrasound may be of use once she is more stable from the cardiorespiratory standpoint and cardiac evaluation has been done to assess pancreatic duct. If antibiotics are stopped, pancreatic duct is cleared by endoscopic ultrasound and no other reason for pancreatitis is identified in the presence of recurrent episodes, a cholecystectomy should be considered. 4. The patient should followup with Dr. Soria. #[id number] [facility]ENTERAudrey
--- NOTE | 2017-12-06 13:15 | PN ---
SUPERVISING PHYSICIAN: Gordo Merrill MD DATE: 12/06/17 SUBJECTIVE: The patient is lying in her bed. She has no complaints of abdominal pain, nausea, vomiting, diarrhea. She clearly stated she does not want to have any surgery at this time. She does not want her gallbladder taken out. Dr. Tobin and I examined the patient in her room. Her only complaint is that she has a headache. She denies chest pain and shortness of breath. OBJECTIVE: VITAL SIGNS: Temperature 98.5. Heart rate 109. Blood pressure 121/77. Respiratory rate 20. O2 saturation 98% on room air. RESPIRATORY: Essentially clear to auscultation bilaterally, somewhat diminished at the bases. CARDIAC: Regular rate and rhythm. GASTROINTESTINAL: Abdomen is soft, nondistended, nontender. Bowel sounds are positive. EXTREMITIES: No cyanosis, clubbing or edema. NEUROLOGIC: Awake, alert and oriented times three. LABORATORY: White count 8,800, hemoglobin 11.2, hematocrit 34.4. Electrolytes are basically within normal limits. Glucose slightly high at 121. Bilirubin has improved to 1.1. Serum total protein is 6, albumin 2.8. Preliminary blood cultures show no growth after 24 hours. All other labs and films have been reviewed via the EMR. ASSESSMENT: 1. Acute on chronic pancreatitis with amylase and lipase now at baseline levels with patient having run fever in the last 24 hours and continues with elevated CRP. At this point, etiology is uncertain although Dr. Tobin feels like it is most likely due to her chronic doxycycline use. Her ultrasound did find sludge in the gallbladder, but the patient will need cardiac clearance before any surgical consultation can be done. 2. Nausea and vomiting secondary to #1, improved. 3. Uncontrolled hypertension, stable. 4. Anxiety. 5. Hepatic steatosis as noted on CT and ultrasound studies. 6. History of 4.7 cm ascending aortic aneurysm, stable. 7. Electrolyte imbalance, now mostly resolved. 8. Hypothyroidism on supplementation. 9. Longstanding history of lung nodules. PLAN: We will continue present supportive care. I spoke with Dr. Praveena Salinas's office, her primary care physician, in [place]. Dr. Salinas is out on vacation at this time, but the office reveals she has not been to a licensed prosthetist/orthotist since [address] Mcfarland at that time. Her office recommended cardiac clearance. I also spoke with Dr. Mcfarland's office and he has not seen her since 2016 and his office also recommended she followup with him for cardiac clearance. Dr. Lowe has been informed of this. Today, I have discontinued all of her antibiotics as well as her NSAID at the recommendation of Dr. Tobin, except her Doxycycline. Her feels her pancreatitis may be due to chronic use of doxycycline. She will need to followup with her primary care physician, Dr. 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 I will advance her diet today as tolerated and she has started back on her p.o. home medications. Hopefully, she can be discharged tomorrow or the next day as long as her pancreatitis does not worsen. At this point, her amylase and lipase are normalized and her bilirubin has come down significantly. She will need to followup with a licensed prosthetist/orthotist and she will need to have an appointment with Dr. Soria, her power builder developer, at some point after she has a cardiac workup. It is recommended she be advanced to a low fat diet. We will continue to monitor the patient closely and follow as needed. Dr. Merrill is the collaborating physician and available for consultation. #[id number] [facility]ITALAudrey
[2017-12-06] MEDS: ORPHENADRINE CITRATE 30 MG/ML AMP IV PRN (14:10)
[2017-12-06] MEDS: HYDROcodone 10MG/APAP 325MG 1 EA TAB PO PRN ×2 (14:14→20:34)
[2017-12-06] MEDS: KCL 20MEQ/D5 1/2NS 1,000 ML IVS PRN (16:03)
[2017-12-06] MEDS: diphenhydrAMINE HCL 50 MG/ML VIAL IV PRN (20:28)
[2017-12-06] MEDS: ENOXAPARIN SODIUM 40 MG/0.4 ML SYG SUBCU SCH (20:33)
[2017-12-07] MEDS: KCL 20MEQ/D5 1/2NS 1,000 ML IVS PRN ×2 (00:29→08:58)
[2017-12-07] MEDS: HYDROcodone 10MG/APAP 325MG 1 EA TAB PO PRN ×4 (05:30→20:42)
[2017-12-07] MEDS: LEVOTHYROXINE SODIUM 0.075 MG TAB PO SCH (06:04)
[2017-12-07] MEDS: LEVALBUTEROL NEBS 1.25 MG/3 ML VIAL NEB SCH ×4 (08:32→20:55)
[2017-12-07] MEDS ORDERED: MAGNESIUM SULFATE PREMIX 2GM 2 GM in PREMIX BAG 1 BAG IVPB ONE (08:37)
[2017-12-07] MEDS ORDERED: MAGNESIUM SULFATE PREMIX 2GM 50 ML IVPB ONE (08:55)
[2017-12-07] MEDS: busPIRone HCL 5 MG TAB PO SCH ×2 (08:59→20:38)
[2017-12-07] MEDS: MONTELUKAST 10 MG TAB PO SCH (08:59)
[2017-12-07] MEDS: Wellbutrin XL 150 MG TAB PO SCH (08:59)
[2017-12-07] MEDS: DOXYCYCLINE HYCLATE CAP 100 MG CAP PO SCH ×2 (09:01→20:39)
[2017-12-07] MEDS: NYSTATIN SUSPENSION 5 ML UD MT SCH ×4 (09:01→20:39)
[2017-12-07] MEDS: guaiFENesin ER TAB 600 MG TAB PO SCH ×2 (09:01→20:39)
[2017-12-07] MEDS: PANCREATIN PO SCH ×2 (09:04→20:39)
[2017-12-07] MEDS: ALBUTEROL SULFATE 2.5 MG/3 ML VIAL NEB PRN (13:13)
--- NOTE | 2017-12-07 13:28 | PN ---
SUPERVISING PHYSICIAN: Gordo Merrill MD DATE: 12/07/17 SUBJECTIVE: The patient is sitting up in her bed and talking to family members. She has had no nausea or vomiting, no constipation or diarrhea, no chest pain or shortness of breath. She does feel better and she is looking forward to getting out. I told her I have advanced her diet and we will see how she tolerates that. OBJECTIVE: VITAL SIGNS: Afebrile. Heart rate 99. Blood pressure 130/48. Respiratory rate 18. O2 saturation 93% on room air. RESPIRATORY: Essentially clear to auscultation bilaterally. CARDIAC: Regular rate and rhythm. GASTROINTESTINAL: Abdomen is soft, nondistended, nontender. Bowel sounds are positive. EXTREMITIES: No cyanosis, clubbing or edema. She does have some mild bruising on her left knee area. NEUROLOGIC: Awake, alert and oriented times three. LABORATORY: WBCs 8.7, hemoglobin 11.8, hematocrit 37. Electrolytes are basically within normal limits with the exception of her magnesium slightly low at 1.3. Bilirubin has gone up slightly to 1.3. Preliminary blood cultures show no growth after 48 hours. All other labs and films have been reviewed via the EMR. ASSESSMENT: 1. Acute on chronic pancreatitis with amylase and lipase now at baseline levels. At this point, etiology is uncertain although Dr. Tobin feels like it is most likely due to her chronic doxycycline use. Her ultrasound did find sludge in the gallbladder, but the patient will need cardiac clearance before any surgical consultation can be done. 2. Nausea and vomiting secondary to #1, improved. 3. Uncontrolled hypertension, stable. 4. Anxiety. 5. Hepatic steatosis as noted on CT and ultrasound studies. 6. History of 4.7 cm ascending aortic aneurysm, stable. 7. Electrolyte imbalance, now mostly resolved. 8. Hypothyroidism on supplementation. 9. Longstanding history of lung nodules. PLAN: We will continue present supportive care. I have advanced her diet to a low fat diet. We will see how she tolerates it overnight. Hopefully she can be discharged tomorrow. She will need close followup with Dr. Praveena Salinas, her primary care physician. Dr. Salinas will need to get her set up for a cardiac clearance. She has seen Dr. Mcfarland in the past. She needs a stress test and she also needs to probably followup with Dr. Hess, infectious diseases , to see if she can change her doxycycline to another medicine as GI specialist believed that the doxycycline may be causing her chronic pancreatitis along with her gallbladder. She will also need to see Dr. Lowe after she has cardiac clearance. I will arrange for a followup appointment with him at that time. I have ordered lab for in the morning. She has received magnesium supplementation. The lab will include amylase and lipase. I have discontinued her primary IV fluids as she is taking p.o. well. We will continue to monitor the patient closely and follow as needed. #[id number] [facility]D
[2017-12-07] MEDS: PROMETHAZINE W/CODEINE SYR 5 ML UD PO PRN (18:34)
[2017-12-07] MEDS: ENOXAPARIN SODIUM 40 MG/0.4 ML SYG SUBCU SCH (20:38)
[2017-12-07] MEDS: SODIUM CHLORIDE 0.9% (FLUSH) 10 ML SYG IV PRN (20:40)
[2017-12-07] MEDS: diphenhydrAMINE HCL 50 MG/ML VIAL IV PRN (20:43)
[2017-12-07] MEDS: IV SET AND CAP CHANGE INJ INJ SCH (22:31)
[2017-12-08] MEDS: LEVOTHYROXINE SODIUM 0.075 MG TAB PO SCH (06:14)
[2017-12-08] MEDS: HYDROcodone 10MG/APAP 325MG 1 EA TAB PO PRN (08:30)
[2017-12-08] MEDS: busPIRone HCL 5 MG TAB PO SCH (08:34)
[2017-12-08] MEDS: Wellbutrin XL 150 MG TAB PO SCH (08:34)
[2017-12-08] MEDS: DOXYCYCLINE HYCLATE CAP 100 MG CAP PO SCH (08:35)
[2017-12-08] MEDS: MONTELUKAST 10 MG TAB PO SCH (08:35)
[2017-12-08] MEDS: guaiFENesin ER TAB 600 MG TAB PO SCH (08:36)
[2017-12-08] MEDS: NYSTATIN SUSPENSION 5 ML UD MT SCH (08:36)
[2017-12-08] MEDS: PANCREATIN PO SCH (08:40)
[2017-12-08] MEDS: LEVALBUTEROL NEBS 1.25 MG/3 ML VIAL NEB SCH (08:43)
[2017-12-08] MEDS: ORPHENADRINE CITRATE 30 MG/ML AMP IV PRN (08:50)
[2017-12-08 09:48] VITALS: O2SAT 96
[2017-12-08 10:45] VITALS: BP 144/99; TEMP 98.4
--- NOTE | 2017-12-11 13:39 | DS ---
SUPERVISING PHYSICIAN: Gordo Merrill MD ADMISSION DIAGNOSIS: 1. Acute pancreatitis as evidenced by CT scan with elevated amylase and lipase. 2. Nausea and vomiting secondary to #1. 3. Uncontrolled hypertension. 4. Anxiety. 5. History of 4.7 cm ascending aortic aneurysm, reported to be stable. 6. Electrolyte imbalances. 7. Hypothyroidism. 8. History of lung nodules. DISCHARGE DIAGNOSIS: 1. Acute on chronic pancreatitis with amylase and lipase now at baseline levels. Etiology is uncertain although Dr. Tobin, gastrointestinal specialist, feels it is due to chronic doxycycline use. 2. Nausea and vomiting secondary to #1, resolved. 3. Uncontrolled hypertension, now controlled and stable. 4. Chronic anxiety. 5. Hepatic steatosis as noted on CT and ultrasound studies, needing followup with primary care provider. 6. History of 4.7 cm ascending aortic aneurysm, stable, needs followup in outpatient setting. 7. Electrolyte imbalance, including low potassium and low magnesium, resolved at baseline status with parenteral replacement. 8. Hypothyroidism on supplementation. 9. Longstanding history of lung nodules. REASON FOR HOSPITALIZATION: Ms. Bray is a 72-year-old female patient that initially presented to the Emergency Room on 12/01/17 with complaint of epigastric abdominal pains. She noted she had some right upper quadrant abdominal pain that radiated through the abdomen to her back. She has a significant history of idiopathic pancreatitis. She also has a stable thoracic aortic aneurysm. In the Emergency Room, her pain was reported as 10/ 10. At that time, she was given morphine due to the fact that she does not like Dilaudid. She was also given some IV fluids and some antiemetics. Laboratory studies showed a leukocytosis with a left shift. Amylase and lipase were both elevated. CT of the abdomen suggested acute pancreatitis. The patient was then admitted to the Medical/Surgical Floor for ongoing treatment of acute pancreatitis. LABORATORY STUDIES: White count on admission showed leukocytosis of 12,600. It did go up to a maximum of 13,700. Before discharge, it was at baseline at 8, 800. Hemoglobin and hematocrit remained stable and at discharge were 11.4 and 34.4, respectively with a platelet count at 231,000. She did have a left shift on admission. This resolved prior to discharge. Chemistries showed normal electrolytes on admission with BUN 21, creatinine 1.04. Total bilirubin was elevated at 2.0 and it did go to a maximum of 2.8, but had normalized to 0.9 prior to discharge. Her liver functions all remained within normal limits. Amylase and lipase were elevated. Initially amylase was 353 and went up to a maximum of 616, but was at baseline at 50 prior to discharge. Lipase also was elevated on admission and went from 743 to a maximum of 1080 and prior to discharge had gone down to 64. Magnesium was low on admission at 1.5. Prior to discharge, it had normalized to 2.0. At discharge her electrolytes were within normal limits with a BUN less than 5 and creatinine 1.06. Urinalysis initially on admission showed a small amount of bilirubin, otherwise within normal limits. Repeat urinalysis on 12/04/17 was within normal limits. Group A rapid strep was negative. MICROBIOLOGY: Blood cultures remained negative after 5 days. Strep culture showed no beta strep isolated. RADIOLOGY: In the Emergency Room, initially she had a chest x-ray and per radiologic interpretation it showed no acute findings, no focal lung consolidations. This was followed up with a CT of the pelvis and abdomen with contrast and per radiologic interpretation findings were suggestive acute pancreatitis. There was also note of mild prominence of the main pancreatic duct and hepatic steatosis. Abdominal ultrasound showed hepatic steatosis with mild gallbladder sludge, mild pancreatic ductal dilation with poor evaluation due to pancreas overshadowed with bowel gas. CONSULTATION: 1. Surgical consultation, Emile Lowe MD. Please see his note for full details. 2. Medical consultation with gastrointestinal specialist, Dr. Tobin. Please see his note for full details. HOSPITAL COURSE: Ms. Bray was admitted on 12/01/17 for acute pancreatitis. She was made NPO, given pain medications, antiemetics and fluids. She was started on Levaquin as well as Flagyl. Clinically, her labs improved. She was tolerating a regular diet and no longer having any pain. She was felt clinically stable enough to be discharged to follow in an outpatient setting. PHYSICAL EXAMINATION: VITAL SIGNS: At discharge, temperature 98.4, pulse 109, blood pressure 123/84, respirations 20, saturation 97% on room air. GENERAL: The patient was seen in exam. She was in no acute distress, alert. CHEST: Lungs clear to auscultation bilaterally. HEART: Regular rate and rhythm. ABDOMEN: Obese, but soft, nontender. Positive bowel sounds. EXTREMITIES: No cyanosis, clubbing or edema. NEUROLOGIC: Alert and oriented times 3. PLAN: Ms. Bray was discharged with instructions to followup with her primary care provider as scheduled with Dr. Salinas as well as to see Dr. Mcfarland , Dr. Hess and Dr. Lowe. She was to see Dr. Mcfarland to get cardiac clearance for possible cholecystectomy given the findings on ultrasound. She was to see Dr. Hess to have close followup regarding initiation of doxycycline regarding chronic knee infection. Diet was regular diet as tolerated, preferably low fat. Activity to increase as tolerated. There were no new medications prescribed at discharge. She was to resume her home medications as prior to hospitalization. DISPOSITION: The patient was discharged to the care of her family. Condition on discharge was stable and improved. #[id number] [facility]
== END 2017-12-08 12:30 | disposition home or self-care (01) | DRG 395 ==
LOC: ER 18:40 → MS 22:07 → OBSVTOIN 22:07
PROVIDERS: ADMIT Nurse Practitioner Acute Care; ATTEND Nurse Practitioner Acute Care
DX: K35.80 Unspecified acute appendicitis (principal); R11.2 Nausea with vomiting, unspecified; I10 Essential (primary) hypertension; F41.9 Anxiety disorder, unspecified; I71.2 Thoracic aortic aneurysm, without rupture; E03.9 Hypothyroidism, unspecified; R91.8 Other nonspecific abnormal finding of lung field; K36 Other appendicitis; K76.0 Fatty (change of) liver, not elsewhere classified; E87.6 Hypokalemia; E83.42 Hypomagnesemia; G47.33 Obstructive sleep apnea (adult) (pediatric); Z96.652 Presence of left artificial knee joint; I25.10 Atherosclerotic heart disease of native coronary artery without angina pectoris; I25.2 Old myocardial infarction; E78.5 Hyperlipidemia, unspecified; Z88.0 Allergy status to penicillin; Z88.2 Allergy status to sulfonamides; Z88.5 Allergy status to narcotic agent; Z87.891 Personal history of nicotine dependence

== ENCOUNTER 2017-12-22 14:14 | Emergency (ER) | payer MEDICARE ==
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
--- NOTE | 2017-12-22 15:14 | RAD ---
EXAM DESCRIPTION: Chest,2 Views CLINICAL HISTORY: chest pain, history or TAA COMPARISON: December 04, 2017 TECHNIQUE: PA/lateral FINDINGS: The lungs are well expanded and clear. No infiltrates or effusions or masses are noted. Cardiomegaly with tortuous aortic arch and descending aorta is present with normal vascularity. The britt and mediastinum demonstrate normal contours. The bony spine and chest wall is normal for age in appearance. IMPRESSION: Bowel cardiomegaly without congestive failure. Electronically signed by: Wesley Winchester MD 12/22/2017 3:12 PM CDT
[2017-12-22] MEDS ORDERED: MORPHINE SULFATE INJ 10 MG/ML VIAL IV ONE ×2 (15:41→18:42)
--- NOTE | 2017-12-22 16:33 | CT ---
EXAM DESCRIPTION: Abdomen/Pelvis w/Contrast CLINICAL HISTORY: 72 years Female abdominal pain, increased bili COMPARISON: None. TECHNIQUE: Contiguous axial images obtained through the abdomen and pelvis following IV contrast. Reformatted images obtained. This exam was performed according to our department optimization program which includes automated exposure control, adjustment of the mA and/or kv according to patient size and/or use of iterative reconstruction technique. FINDINGS: Fatty infiltration of the liver with some areas of focal fatty sparing. Unremarkable spleen. There is inflammatory change around the pancreas with some pancreatic enlargement consistent with developing acute pancreatitis. No evidence of necrosis or pseudocyst. No adrenal masses. The kidneys appear unremarkable. No hydronephrosis. The gallbladder is visualized. No aneurysmal dilatation of the aorta. No bowel obstruction. The appendix is unremarkable. No significant free fluid noted. Multilevel degenerative change in the spine. IMPRESSION: Findings suggesting early acute pancreatitis without evidence of pseudocyst Fatty liver Diverticulosis without diverticulitis Electronically signed by: Lexy Sky MD 12/22/2017 4:31 PM CDT
[2017-12-22] MEDS ORDERED: SODIUM CHLORIDE 0.9% 1000ML 1,000 ML IVS ONE (16:39)
--- NOTE | 2017-12-22 17:29 | US ---
EXAM DESCRIPTION: Gall Bladder CLINICAL HISTORY: pain,possible stone COMPARISON: None. FINDINGS: Pancreas was partially visualized due to overlying bowel gas. The visualized portions are within normal limits. There is no discrete peripancreatic fluid collection. The liver is of increased echogenicity compatible with fatty infiltration. The right kidney demonstrates no hydronephrosis. The right kidney measured 8.7 x 3.8 x 4.2 cm. There are no gallstones, gallbladder wall thickening or pericholecystic fluid collection. The common bile duct measures 5.8 mm which is within normal limits. There is no free fluid in the right upper quadrant. IMPRESSION: No acute abnormalities. Increased echogenicity of the liver could be secondary to fatty infiltration. Electronically signed by: Benito Pierre MD 12/22/2017 5:28 PM CDT
[2017-12-22] MEDS ORDERED: ACETAMINOPHEN 500 MG TAB PO ONE (17:37)
[2017-12-22 19:01] VITALS: BP 153/82
[2017-12-22 19:12] VITALS: TEMP 98; O2SAT 96
== END 2017-12-22 19:12 | disposition short-term general hospital (02) ==
LOC: ER 14:14
DX: E80.6 Other disorders of bilirubin metabolism (principal); R07.89 Other chest pain; I25.2 Old myocardial infarction; E11.9 Type 2 diabetes mellitus without complications; J45.909 Unspecified asthma, uncomplicated; I10 Essential (primary) hypertension; E07.9 Disorder of thyroid, unspecified; Z79.899 Other long term (current) drug therapy; Z88.5 Allergy status to narcotic agent; Z88.0 Allergy status to penicillin; Z88.2 Allergy status to sulfonamides
CPT/HCPCS: 36415; 71046; 74177; 76705; 80053; 81001; 82550; 82553; 83690; 83880; 84484; 85025; 85610; 85730; 93005; J2270; J7030

== ENCOUNTER 2018-05-06 11:26 | Emergency (ER) | payer MEDICARE ==
--- NOTE | 2018-05-06 13:52 | RAD ---
CHEST 05/06/2018 CLINICAL HISTORY: Cough COMPARISON: Chest 12/22/2017 TECHNIQUE: [AP] Chest. FINDINGS: Heart is normal in size. Normal cardiomediastinal contours. Normal pulmonary vascularity. There is lateral left lower lobe/lingula atelectasis/scar. Pleural spaces are clear. No pulmonary edema. No consolidation. Unremarkable soft tissues and bones. IMPRESSION: 1. No acute chest disease. Electronically signed by: Delmis Benito DO 05/06/2018 1:49 PM CDT
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
[2018-05-06] MEDS ORDERED: PROCHLORPERAZINE INJ 10 MG/2 ML VIAL IV ONE (13:59)
[2018-05-06] MEDS ORDERED: fentaNYL CITRATE INJ 50 MCG/ML AMP IV ONE ×2 (13:59→15:51)
[2018-05-06] MEDS ORDERED: IPRATROPIUM/ALBUTEROL 3 ML VIAL NEB ONE (14:02)
[2018-05-06] MEDS ORDERED: SODIUM CHLORIDE 0.9% 500ML 500 ML IVS ONE (14:04)
[2018-05-06] MEDS ORDERED: DICYCLOMINE HCL INJ 20 MG/2 ML AMP IM ONE (15:51)
[2018-05-06] MEDS ORDERED: LABETALOL INJ 5 MG/ML VIAL IV ONE ×2 (15:52→17:23)
--- NOTE | 2018-05-06 16:06 | CT ---
CT ABDOMEN AND PELVIS WITH CONTRAST. 05/06/2018 CLINICAL HISTORY: Abdominal pain COMPARISON: CT abdomen and pelvis with contrast 12/22/2017. TECHNIQUE: Axial [address] imaging of the abdomen and pelvis performed utilizing intravenous contrast. Reformatted coronal and sagittal images reviewed. A dose reduction technique was utilized with automated exposure control according to patient size. FINDINGS: LOWER THORAX: 6 mm noncalcified nodule right lower lobe. Heart is normal in size. ABDOMEN: LIVER/GALLBLADDER: The liver is normal in size and contour. There is mild decreased attenuation due to fatty infiltration. Hepatic and portal vessels appear normal. The gallbladder is mildly distended. No stones. No sludge seen. No pericholecystic edema.. SPLEEN/PANCREAS: Normal spleen. The pancreas is atrophic. There is diffuse mild pancreatic duct dilatation to 5 mm. There is diffuse mild peripancreatic edema. This is either chronic or recurrent but less severe than that seen on reference exam. No peripancreatic fluid collection. No perinephric mass or stone. KIDNEYS/ADRENAL GLANDS: The adrenal glands appear normal. Normal appearance of both kidneys. No hydronephrosis. Normal excretion of contrast bilaterally. RETROPERITONEAL VESSELS/NODES: Abdominal aorta is minimally atherosclerotic.. No aneurysm. Normal caliber inferior vena cava. No adenopathy. BOWEL: Small hiatal hernia. Normal stomach. The small bowel loops appear normal. Normal right lower quadrant appendix. There is scattered fluid within the ascending and transverse colon. Mild descending and sigmoid colon diverticulosis. No diverticulitis. MESENTERY/PERITONEUM: No adenopathy. No ascites. No free air. PELVIS: BLADDER: Unremarkable bladder. GENITAL ORGANS: The uterus appears normal. PERITONEUM: No pelvic free fluid or adenopathy. BONES AND SOFT TISSUES: There is significant lower thoracic and lumbar spondylosis with multilevel vacuum disc changes. Superior endplate Schmorl's node at L1 noted. The bony pelvis appears intact. Normal hips. IMPRESSION: 1. Mild pancreatitis. This is either chronic or recurrent. Mild pancreatic ductal dilatation with no obstructing mass or stone. No pseudocyst. 2. Small hiatal hernia. 3. Mild hepatic steatosis. 4. Gallbladder dyskinesia. No evidence of gallstones. 5. Several colonic fluid levels suggests small bowel enteritis.. 6. 6 mm right lower lobe indeterminate pulmonary nodule. Follow-up per Fleischner Society recommendations. 2017 Fleischner Society Recommendations for Multiple Solid Lung Nodules Follow-Up base on size (average of long- and short-axis diameters). Use most suspicious nodule for followup. Nodule Size <6 mm Low-Risk Patient: No routine follow-up Nodule Size <6 mm High-Risk Patient: Optional CT at 12 months Nodule Size 6-8 mm Low-Risk Patient: CT at 3-[address] at 18-24 months Nodule Size 6-8 mm High-Risk Patient: CT at 3-6 months then at 18-24 months Nodule Size (mm) >8 Low-Risk Patient: CT at 3-6 months, then consider CT at 18-24 months Nodule Size (mm) >8 High-Risk Patient: CT at 3-6 months, then at 18-24 months Electronically signed by: Delmis Benito DO 05/06/2018 4:03 PM CDT
[2018-05-06] MEDS ORDERED: SODIUM CHLORIDE 0.9% 1000ML 1,000 ML IVS PRN (16:14)
[2018-05-06] MEDS ORDERED: tiZANidine 4 MG TAB PO ONE (17:59)
[2018-05-06 18:52] VITALS: BP 135/91
[2018-05-06 19:04] VITALS: TEMP 99.2; O2SAT 98
== END 2018-05-06 19:03 | disposition home or self-care (01) ==
LOC: ER 11:26
DX: K85.90 Acute pancreatitis without necrosis or infection, unspecified (principal); K86.1 Other chronic pancreatitis; M54.5 Low back pain; I10 Essential (primary) hypertension; I71.2 Thoracic aortic aneurysm, without rupture; E07.9 Disorder of thyroid, unspecified; E11.9 Type 2 diabetes mellitus without complications; J45.909 Unspecified asthma, uncomplicated; I25.2 Old myocardial infarction; Z87.891 Personal history of nicotine dependence; Z79.899 Other long term (current) drug therapy; Z88.0 Allergy status to penicillin; Z88.2 Allergy status to sulfonamides; Z88.5 Allergy status to narcotic agent
CPT/HCPCS: 71045; 74177; 80048; 80076; 80307; 81001; 82550; 82553; 83690; 84484; 85025; 85610; 85730; 93005; 94640; J0500; J0780; J3010; J7030; J7040; J7620

== ENCOUNTER 2018-05-09 10:16 | Emergency (ER) | payer MEDICARE ==
[2018-05-09] MEDS ORDERED: PROMETHAZINE HCL INJ 25 MG/ML VIAL ONE (10:40)
[2018-05-09] MEDS ORDERED: SODIUM CHLORIDE 0.9% 50ML 50 ML ONE (10:41)
[2018-05-09] MEDS: PROMETHAZINE HCL INJ 25 MG in SODIUM CHLORIDE 0.9% 50ML 50 ML IVPB ONE (10:55)
[2018-05-09] MEDS: MORPHINE SULFATE INJ 10 MG/ML VIAL IV ONE ×4 (10:55→14:53)
--- NOTE | 2018-05-09 11:01 | RAD ---
EXAM DESCRIPTION: Abdomen Series CLINICAL HISTORY: 72 years Female, rigth chest and abd pain COMPARISON: August 13, 2017 FINDINGS: The cardiomediastinal silhouette is unremarkable. There is no airspace consolidation or pleural effusion. There is no free subdiaphragmatic gas or intra-abdominal air fluid level. There is a moderate amount of stool and gas scattered throughout the colon, but the bowel gas pattern is nonobstructive. No suspicious intra-abdominal calcification or mass is identified, and the bones are unremarkable. A few tiny pelvic calcifications are stable from the prior exam and likely represent phleboliths. Degenerative changes in the lumbar spine at several levels including degenerative disc disease and mild levoscoliosis, stable. IMPRESSION: No acute abnormality in the chest or abdomen to explain patient's symptoms. Electronically signed by: Steve Aquino MD 05/09/2018 10:58 AM CDT
[2018-05-09] MEDS: KETOROLAC TROMETHAMINE INJ 30 MG/ML VIAL IV ONE (11:48)
[2018-05-09] MEDS ORDERED: ceFAZolin SODIUM 2 GRAMS PREMI 50 ML IVPB ONE (11:53)
[2018-05-09] MEDS: ceFAZolin SODIUM 2 GRAMS PREMI 2 GM in PREMIX BAG 1 BAG IVPB ONE (12:03)
[2018-05-09] MEDS: SODIUM CHLORIDE 0.9% 1000ML 1,000 ML IVS ONE (12:09)
--- NOTE | 2018-05-09 12:09 | US ---
EXAM DESCRIPTION: Abdomen,Limited CLINICAL HISTORY: hx chronic pancreatitis, ruq pain COMPARISON: Previous abdominal sonogram December 22, 2017, previous CT abdomen December 22, 2017 TECHNIQUE: Right upper quadrant ultrasound FINDINGS: Pancreas: Pancreatic duct is dilated measuring 6 mm. This can be seen with chronic pancreatitis or with ductal obstruction. No obstructing mass is identified on sonography. Patient had a CT of the abdomen December 22, 2017 which showed pancreatitis. The pancreatic duct was not particularly enlarged at that time. Bowel gas obscures some areas. Aorta/inferior vena cava: No aortic aneurysm. Normal inferior vena cava. Liver: The liver is homogeneous in texture with increased echogenicity consistent with hepatic steatosis. No focal liver lesion. There is positive intrahepatic bile duct dilatation. Correlate with CT or MRCP findings if indicated. No liver surface irregularity. Normal appearance of the portal vein and hepatic veins. Gallbladder: Gallbladder appears large measuring 12.5 x 5.6 cm with no intraluminal stones. Wall appears abnormal with edematous thickening and question of small amount of pericholecystic fluid. Sonographic Campbell sign was reported as positive. Radionuclide hepatobiliary scan can be helpful for clinically equivocal cases. Common bile duct: Normal caliber measuring 8.5 mm. Right kidney: Renal length is 9.1 cm. Normal cortical echogenicity. There is irregular cortical thinning. No hydronephrosis is seen. No renal mass or shadowing calculus. IMPRESSION: Pancreatic ductal and biliary ductal dilatation. See above. Distended gallbladder with no visualized intraluminal stones. See above. Electronically signed by: Loco Vera MD 05/09/2018 12:06 PM CDT
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
[2018-05-09] MEDS: METOPROLOL TARTRATE INJ 5 MG/5 ML VIAL IV ONE (14:53)
[2018-05-09 16:40] VITALS: BP 90/61; TEMP 98.7; O2SAT 92
== END 2018-05-09 16:40 | disposition short-term general hospital (02) ==
LOC: ER 10:16
DX: K80.43 Calculus of bile duct with acute cholecystitis with obstruction (principal); R07.1 Chest pain on breathing; J45.909 Unspecified asthma, uncomplicated; I25.2 Old myocardial infarction; I10 Essential (primary) hypertension; E07.9 Disorder of thyroid, unspecified; E11.9 Type 2 diabetes mellitus without complications; I25.10 Atherosclerotic heart disease of native coronary artery without angina pectoris; F41.9 Anxiety disorder, unspecified; F32.9 Major depressive disorder, single episode, unspecified; Z87.891 Personal history of nicotine dependence; Z79.899 Other long term (current) drug therapy; Z88.0 Allergy status to penicillin; Z88.2 Allergy status to sulfonamides; Z88.5 Allergy status to narcotic agent; Z87.19 Personal history of other diseases of the digestive system
CPT/HCPCS: 36416; 74019; 76775; 80053; 81001; 82150; 82550; 82553; 83605; 83690; 83735; 83880; 84443; 84484; 85025; 93005; A4216; J0690; J1885; J2270; J2550; J7030

== ENCOUNTER → 2018-12-28 | Outpatient (CLI) | payer MEDICARE | LOC: NC 16:38 | PROVIDERS: ATTEND Family Medicine | DX: R30.0 Dysuria (principal) ==

== ENCOUNTER 2020-01-09 23:11 | Emergency (ER) | payer OTHER ==
[2020-01-10] MEDS ORDERED: SODIUM CHLORIDE 0.9% 1000ML 1,000 ML IVS ONE (00:35)
--- NOTE | 2020-01-10 01:39 | RAD ---
Acute abdominal series x-ray three views on 01/10/2020 CLINICAL INDICATION: Hypotension, confusion COMPARISON: 05/09/2018 FINDINGS: CHEST: The lungs are clear. Cardiac, hilar and mediastinal contours are within normal limits. Pulmonary vascularity is within normal limits. ABDOMEN: There is no free air. Bowel gas pattern is unremarkable. Calcifications in the pelvis are consistent with phleboliths. No other abnormal calcification or mass effect is noted. No increased stool to suggest constipation is noted. Degenerative changes and levoscoliosis is noted in the lumbar spine. IMPRESSION: 1. No acute cardiopulmonary disease. 2. Nonspecific abdomen. Electronically signed by: Won Manning 01/10/2020 1:38 AM [employer]
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
[2020-01-10] MEDS ORDERED: KETOROLAC TROMETHAMINE INJ 30 MG/ML VIAL IV ONE (02:28)
[2020-01-10 04:33] VITALS: BP 118/82; TEMP 97.4; O2SAT 96
== END 2020-01-10 03:35 | disposition home or self-care (01) ==
LOC: ER 23:11
DX: I95.2 Hypotension due to drugs (principal); F11.921 Opioid use, unspecified with intoxication delirium; I45.10 Unspecified right bundle-branch block; R00.0 Tachycardia, unspecified; I25.2 Old myocardial infarction; E11.9 Type 2 diabetes mellitus without complications; E07.9 Disorder of thyroid, unspecified; I10 Essential (primary) hypertension; J45.909 Unspecified asthma, uncomplicated; Z87.891 Personal history of nicotine dependence; Z79.899 Other long term (current) drug therapy; Z88.0 Allergy status to penicillin; Z88.2 Allergy status to sulfonamides; Z88.5 Allergy status to narcotic agent
CPT/HCPCS: 36415; 74019; 80053; 80307; 81001; 82550; 82553; 83605; 83735; 83880; 84443; 84484; 85025; 93005; J1885; J7030

== ENCOUNTER 2020-02-16 16:58 | Emergency (ER) | payer OTHER ==
[2020-02-16] MEDS ORDERED: SODIUM CHLORIDE 0.9% 1000ML 1,000 ML IVS ONE (17:18)
[2020-02-16] MEDS ORDERED: ONDANSETRON INJ 4 MG/2 ML VIAL IV ONE (17:18)
[2020-02-16] MEDS ORDERED: MORPHINE SULFATE INJ 10 MG/ML VIAL IV ONE (17:18)
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
--- NOTE | 2020-02-16 17:58 | RAD ---
CHEST, ONE VIEW XR CLINICAL HISTORY: Chest pain COMPARISON: 09/16/2018 TECHNIQUE: AP Chest. FINDINGS: [Normal cardiac size. Pulmonary vasculature appears normal. Normal cardiomediastinal contours. Lungs are clear. Pleural spaces are clear. Unremarkable soft tissues and bones.] IMPRESSION: 1. No acute chest disease. Electronically signed by: Delmis Benito DO 02/16/2020 5:56 PM [employer]
[2020-02-16] MEDS ORDERED: KETOROLAC TROMETHAMINE INJ 30 MG/ML VIAL IV ONE (18:12)
--- NOTE | 2020-02-16 19:10 | CT ---
EXAM DESCRIPTION: Abdomen/Pelvis w/Contrast 02/16/2020 7:03 PM [employer]ISH [employer] CLINICAL HISTORY: 74 years, Female, abd pain COMPARISON: 05/06/2018 PROCEDURE: Contrast-enhanced images of the abdomen and pelvis were performed utilizing 2 mm slice thickness at 2 mm interval reconstruction from the lung bases to the ischial tuberosities after the administration of IV contrast. No dosing amount was provided for interpretation. In addition multiplanar reformats in the coronal and sagittal plane were obtained and reviewed. An individualized dose optimization technique, Automated Exposure Control, was utilized for the performed procedure. FINDINGS: The lung bases demonstrate a 2 mm pulmonary nodule lateral right upper lobe of doubtful clinical significance. The liver questionable subpleural area of the slight enhancement along the subcapsular right hepatic lobe with a disc corresponding to fatty infiltration and/or perforation of enhancement could be of consideration. Findings are somewhat similar to prior study, best identified on image [id number]. The pancreas, spleen and adrenal glands demonstrate to be unremarkable, no focal lesions are noted. Surgical clips within the gallbladder fossa corresponding to previous cholecystectomy. No significant biliary duct dilatation. The kidneys demonstrate normal uptake of contrast media. No hydronephrosis and/or stones were identified. Grossly the unopacified stomach, small bowel and large bowel demonstrate to be within normal limits. Fecal residue and underdistention within the large bowel limits the evaluation. There is no evidence for bowel dilatation and/or free air. The appendix was not visualized although no significant inflammatory changes are seen within the right lower quadrant. There is diverticulosis within the sigmoid colon. The urinary bladder demonstrate to be unremarkable. The uterus demonstrate to be within normal limits. There are no adnexal masses. The aorta demonstrate to be normal. There is no retroperitoneal lymphadenopathy. There is no evidence for ascites and/or significant abnormal fluid collections. The bone windows demonstrate mild diffuse bony osteopenia. Again noted is the presence of a degenerative disc disease throughout the lumbar spine with minimal retrolisthesis at L3 over L4 from degenerative changes/posterior facet hypertrophy. IMPRESSION: STATUS POST CHOLECYSTECTOMY. QUESTIONABLE FATTY INFILTRATION OF THE LIVER WITH A PREFERENTIAL ENHANCEMENT. MINIMAL DIVERTICULOSIS. NO EVIDENCE FOR ACUTE INTRA-ABDOMINAL PROCESS. Electronically signed by: Pritesh Marsh MD 02/16/2020 7:08 PM [employer]
[2020-02-16] MEDS ORDERED: ALUM & MAG HYDROX-SIMETHICONE 30 ML, LIDOCAINE VISCOUS 2% 15 ML PO ONE ×2 (19:17)
[2020-02-16] MEDS ORDERED: POTASSIUM CHLORIDE 20 MEQ TAB PO ONE (19:32)
[2020-02-16 20:37] VITALS: BP 166/104; TEMP 98.3; O2SAT 97
== END 2020-02-16 20:00 | disposition home or self-care (01) ==
LOC: ER 16:58
DX: R11.2 Nausea with vomiting, unspecified (principal); R19.7 Diarrhea, unspecified; E87.6 Hypokalemia; R07.9 Chest pain, unspecified; R12 Heartburn; J45.909 Unspecified asthma, uncomplicated; I25.2 Old myocardial infarction; I10 Essential (primary) hypertension; E07.9 Disorder of thyroid, unspecified; E11.9 Type 2 diabetes mellitus without complications; Z90.49 Acquired absence of other specified parts of digestive tract; Z87.891 Personal history of nicotine dependence; Z20.828 Contact with and (suspected) exposure to other viral communicable diseases
CPT/HCPCS: 36415; 71045; 74177; 80053; 81001; 83690; 83880; 84484; 85025; 85610; 85730; 87486; 87581; 87633; 87635; 93005; J1885; J2270; J2405; J7030

== ENCOUNTER 2020-03-27 23:54 | Inpatient (IN) | payer MEDICARE, OTHER ==
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
[2020-03-28] MEDS ORDERED: MORPHINE SULFATE INJ 10 MG/ML VIAL IV ONE ×2 (00:01→00:53)
[2020-03-28] MEDS ORDERED: ONDANSETRON INJ 4 MG/2 ML VIAL IV ONE (00:03)
[2020-03-28] MEDS ORDERED: ACETAMINOPHEN IV 1000MG 1,000 MG in PREMIX BOTTLE 1 BOTTLE IVPB ONE (00:54)
--- NOTE | 2020-03-28 01:05 | RAD ---
EXAM DESCRIPTION: Hip,Left 2 Views CLINICAL HISTORY: Trauma, fall COMPARISON: None. FINDINGS: 2 views of the left hip. Comminuted mildly displaced intertrochanteric fracture of the proximal left femur. Osteopenia. IMPRESSION: 1. Comminuted mildly displaced intertrochanteric fracture of the proximal left femur. Electronically signed by: Alberto Garcia 03/28/2020 1:03 AM [facility]
--- NOTE | 2020-03-28 01:21 | RAD ---
EXAM DESCRIPTION: Chest,1 View 03/28/2020 1:19 AM BIN CLEANER CLINICAL HISTORY: 74 years, Female, Preoperative COMPARISON: 02/16/2020 FINDINGS: Single view of the chest was obtained portable. Prior films were compared. The cardiomediastinal silhouette demonstrate to be unremarkable. The heart is not enlarged. The thoracic aorta is mildly tortuous. Costophrenic angles are sharp. No areas of consolidation or masses are seen. The rest of the soft tissue and bony structures demonstrate to be unremarkable. IMPRESSION: NO ACUTE CARDIOPULMONARY DISEASE SEEN. Electronically signed by: Pritesh Marsh MD 03/28/2020 1:19 AM BIN CLEANER
[2020-03-28] MEDS ORDERED: ORPHENADRINE CITRATE 30 MG/ML AMP IV ONE (01:35)
[2020-03-28] MEDS ORDERED: LABETALOL INJ 5 MG/ML VIAL IV ONE ×2 (01:46→02:42)
[2020-03-28] MEDS ORDERED: ONDANSETRON INJ 4 MG/2 ML VIAL IV PRN (02:41)
[2020-03-28] MEDS ORDERED: ACETAMINOPHEN 325 MG TAB PO PRN (02:41)
[2020-03-28] MEDS ORDERED: SODIUM CHLORIDE 0.9% (FLUSH) 10 ML SYG IV PRN (02:41)
[2020-03-28] MEDS ORDERED: HYDROcodone 5MG/APAP 325MG 1 EA TAB PO PRN (02:41)
[2020-03-28] MEDS ORDERED: IV SET AND CAP CHANGE INJ INJ SCH (03:00)
[2020-03-28] MEDS ORDERED: MORPHINE SULFATE INJ 10 MG/ML VIAL ONE ×3 (03:09→08:49)
[2020-03-28] MEDS: MORPHINE SULFATE INJ 10 MG/ML VIAL IV PRN ×3 (03:18→09:06)
[2020-03-28] MEDS ORDERED: HYDROmorphone HCL INJ 2 MG/ML VIAL IV ONE ×2 (04:48→05:32)
[2020-03-28] MEDS ORDERED: hydrALAZINE HCl 20 MG/ML VIAL IV ONE ×2 (05:17→05:40)
[2020-03-28] MEDS ORDERED: HYDROmorphone HCL INJ 2 MG/ML VIAL ONE ×2 (05:34→10:57)
--- NOTE | 2020-03-28 05:53 | HP ---
SUPERVISING PHYSICIAN: Alberto Howell MD CHIEF COMPLAINT: Left hip pain. HISTORY OF PRESENT ILLNESS: Ms. Bray is a 74 year-old female patient that presented to the Emergency Room early this morning with left hip pain. She utilizes a scooter for ambulation assistance. This morning she was using this at home about an hour prior to admission when she got it caught on the rug and the scooter fell over resulting in her landing on her left hip. She presented to the Emergency Room with severe pain in her left hip. No loss of consciousness was mentioned, no disorientation, no other injuries reported. An x-ray of her hip on initial presentation to the Emergency Room showed a comminuted mildly displaced intertrochanteric fracture of the proximal left femur. Dr. Peace, orthopedic surgeon, was consulted in regard to the patient's hip fracture and he requested the patient be admitted for anticipation of an open reduction and internal fixation on Monday. She is admitted in stable condition. PAST MEDICAL HISTORY: 1. Hypertension, poorly controlled. 2. Previous myocardial infarction times 2. 3. Several episodes of pancreatitis with hospitalization. 4. Chronic knee infection, left knee, on chronic antibiotic therapy with Dr. Lopez. 5. History of lung nodules. 6. History of hypothyroidism, on supplementation. 7. Obstructive sleep apnea. 8. Hyperlipidemia. PAST SURGICAL HISTORY: 1. Partial thyroidectomy. 2. Tonsillectomy and adenoidectomy. 3. Hernia repair. 4. Left knee arthroscopy with irrigation due to knee infection. CURRENT MEDICATIONS: 1. Tizanidine 2 mg b.i.d. as needed. 2. Protonix 40 mg daily. 3. Zofran 4 mg b.i.d. as needed. 4. Singulair 10 mg daily. 5. Lisinopril 20 mg daily/ 6. Synthroid 150 mcg daily. 7. [place] 10, two tablet every 4 hours as needed for pain. 8. Flonase as needed. 9. Cymbalta 60 mg daily. 10. Doxycycline 100 mg b.i.d. 11. Coreg 25 mg b.i.d. 12. Lipitor 40 mg daily. 13. Aspirin 81 mg daily. ALLERGIES: PENICILLIN, CODEINE SULFA ANTIBIOTICS. FAMILY HISTORY: Noncontributory to current admission. SOCIAL HISTORY: The patient has a distant history of smoking but quit about 30 years previously. She lives with her spouse who currently smokes. She denies any alcohol or illicit drug use. She is retired and lives in [place], [place]. REVIEW OF SYSTEMS: CONSTITUTIONAL: Denies fever or chills or general malaise, unexplained weight changes. HEENT: Denies headaches, sore throat, vision changes, nasal congestion, earaches. RESPIRATORY: Denies coughing, wheezing or shortness of breath. CARDIOVASCULAR: Denies chest pain, palpitations or syncopal episodes. GASTROINTESTINAL: Denies nausea, vomiting, diarrhea or constipation or abdominal pain. GENITOURINARY: Denies dysuria, hematuria or polyuria. MUSCULOSKELETAL: Left hip pain as noted in history of present illness. No reported back pain or neck pain. NEUROLOGIC: Denies ataxia, seizures, paresthesias or other focal deficits. SKIN: Denies lesions, rashes, moles or unexplained changes. HEMATOLOGIC: Denies unexplained bruising, bleeding or transfusion reaction. PHYSICAL EXAMINATION: VITAL SIGNS: Temperature 99.9, pulse 110, blood pressure 132/90, respirations 18, oxygen saturation 98% on 2 liter nasal cannula. GENERAL: The patient is resting in bed. She does look a little uncomfortable but just received pain management. She is alert. HEENT: Tympanic membranes are clear bilaterally. Oropharynx is pink and moist without lesions. NECK: Supple, non-tender, full range of motion. No jugular venous distention. CHEST: Lung sounds are clear to auscultation bilaterally without rhonchi, rales, or wheezes. CARDIOVASCULAR: Regular rate and rhythm without appreciable murmurs, rubs, or gallops. ABDOMEN: Obese, soft, non-tender, positive bowel sounds. EXTREMITIES: No cyanosis, clubbing or edema. Her left leg is shortened and internally rotated. Pulse were strong distally and bilaterally at 2+. Capillary refill brisk. No reported paresthesias. NEUROLOGIC: Cranial nerves II through XII grossly intact. She is oriented times three. LABORATORY: White count 15,300, hemoglobin 12.5, hematocrit 38.2, platelet count 283,000. Differential shows to be without a left shift. Chemistries showing normal electrolytes with creatinine 0.91, calcium 8.5, bilirubin 1.0 and liver functions all within normal limits. Urinalysis was unremarkable. MICROBIOLOGY: Initial swab for Covid was negative. RADIOLOGY: Hip x-ray per radiology interpretation. Left hip x-ray as noted showed a comminuted mildly displaced intertrochanteric fracture of the proximal left femur. Chest x-ray showed no acute the patient disease. 12-lead EKG showed a sinus rhythm at 92 [id number] with no obvious ST or T-wave changes to indicate acute ischemia, just nonspecific abnormalities, compared to November 2017, no acute changes. ASSESSMENT: 1. Status post same level fall with resultant comminuted mildly displaced intertrochanteric fracture of the left proximal femur. 2. Leukocytosis likely due to associated acute trauma and pain with some demarginalization with no obvious infectious etiology. 3. Hypertension poorly controlled, likely exacerbated by acute pain. 4. History of previous myocardial infarctions x2. 5. History of multiple episodes of pancreatitis with no acute signs of abdominal pain. 6. Chronic knee infection on doxycycline. 7. History of lung nodules followed by her primary care physician. 8. Hypothyroidism, on supplementation. 9. Hyperlipidemia. 10. Obstructive sleep apnea. PLAN: The patient is going to be admitted for surgical consultation with Dr. Peace in anticipation of a repair of the left hip on Monday. I did talk to Dr. Peace and we will hold off on any anticoagulation in anticipation of surgery. Will utilized SCDs as able to. Will have pain control with morphine CLINICAL MARKETING MANAGER. She will be on bedrest until postoperative. I anticipate her length of stay to be at least 3 to 4 days. Until we can transition patient to outpatient management, we will continue to monitor and treat as needed, #[id number] [facility]
[2020-03-28] MEDS ORDERED: OMEPRAZOLE CAP 20 MG CAP PO SCH (06:30)
[2020-03-28] MEDS ORDERED: DULoxetine HCL 30 MG CAP PO ONE (07:52)
[2020-03-28] MEDS ORDERED: tiZANidine 4 MG TAB ONE ×2 (07:52→22:46)
[2020-03-28] MEDS ORDERED: DOXYCYCLINE HYCLATE CAP 100 MG CAP ONE ×2 (07:52→19:57)
[2020-03-28] MEDS ORDERED: ATORVASTATIN 20 MG TAB PO ONE (07:53)
[2020-03-28] MEDS ORDERED: LEVOTHYROXINE SODIUM 0.075 MG TAB ONE (07:53)
[2020-03-28] MEDS: TIZANIDINE HCL 2 MG PO PRN ×2 (08:12→22:47)
[2020-03-28] MEDS: ASPIRIN (CHEWABLE) 81 MG TAB PO SCH (10:11)
[2020-03-28] MEDS: CARVEDILOL 12.5 MG TAB PO SCH ×2 (10:11→20:59)
[2020-03-28] MEDS: LISINOPRIL 10 MG TAB PO SCH (10:12)
[2020-03-28] MEDS: PANTOPRAZOLE SODIUM TAB 40 MG PO SCH (10:12)
[2020-03-28] MEDS: MONTELUKAST 10 MG TAB PO SCH (10:12)
[2020-03-28] MEDS: NON-FORMULARY MEDICATION 1 EA MIS (Levothyroxine Sodium [Synthroid] 150 MCG) PO SCH (10:15)
[2020-03-28] MEDS: NON-FORMULARY MEDICATION 1 EA MIS (Duloxetine Hcl [Cymbalta] 60 MG) PO SCH (10:16)
[2020-03-28] MEDS: DOXYCYCLINE PO SCH ×2 (10:17→21:04)
[2020-03-28] MEDS: NON-FORMULARY MEDICATION 1 EA MIS (Atorvastatin Calcium [Lipitor] 40 MG) PO SCH (10:18)
[2020-03-28] MEDS: HYDROcodone 10MG/APAP 325MG 1 EA TAB PO PRN ×3 (10:22→22:48)
[2020-03-28] MEDS ORDERED: diphenhydrAMINE HCL 25 MG CAP PO PRN (10:51)
[2020-03-28] MEDS ORDERED: NALOXONE HCL INJ 0.4 MG/ML VIAL IV PRN (10:51)
[2020-03-28] MEDS ORDERED: diphenhydrAMINE HCL 50 MG/ML VIAL IM PRN (10:51)
[2020-03-28] MEDS ORDERED: KETOROLAC TROMETHAMINE INJ 30 MG/ML VIAL IM ONE (10:53)
[2020-03-28] MEDS ORDERED: MORPHINE PCA 1 MG/ML 100 ML BAG IVPB SCH (11:00)
[2020-03-28] MEDS: HYDROmorphone HCL INJ 2 MG/ML VIAL IV PRN (11:08)
[2020-03-28] MEDS ORDERED: CADD ADMIN SET 1 EA PKG INJ ONE (14:02)
[2020-03-28] MEDS ORDERED: SODIUM CHLORIDE 0.9% 1000ML 1,000 ML ONE (14:24)
[2020-03-28] MEDS ORDERED: SODIUM CHLORIDE 0.9% 1000ML 1,000 ML IVS PRN (14:46)
[2020-03-28] MEDS ORDERED: ALPRAZolam 0.5 MG TAB PO ONE (16:47)
[2020-03-28] MEDS ORDERED: SODIUM CHLORIDE 0.9% 500ML 500 ML IVS ONE (18:48)
[2020-03-28] MEDS ORDERED: HYDROcodone 10MG/APAP 325MG 1 EA TAB ONE (22:46)
[2020-03-29] MEDS ORDERED: SODIUM CHLORIDE 0.9% 500ML 500 ML IVS ONE (00:21)
[2020-03-29] MEDS ORDERED: SODIUM CHLORIDE 0.9% 1000ML 1,000 ML ONE ×3 (00:32→22:14)
[2020-03-29] MEDS: SODIUM CHLORIDE 0.9% 1000ML 1,000 ML IVS PRN ×2 (00:59→13:36)
[2020-03-29] MEDS: HYDROcodone 10MG/APAP 325MG 1 EA TAB PO PRN ×2 (04:15→18:10)
[2020-03-29] MEDS ORDERED: HYDROcodone 10MG/APAP 325MG 1 EA TAB ONE ×3 (04:15→18:08)
[2020-03-29] MEDS ORDERED: MONTELUKAST 10 MG TAB ONE (08:06)
[2020-03-29] MEDS ORDERED: ASPIRIN (CHEWABLE) 81 MG TAB ONE (08:07)
[2020-03-29] MEDS ORDERED: DOXYCYCLINE HYCLATE CAP 100 MG CAP ONE ×2 (08:07→20:22)
[2020-03-29] MEDS ORDERED: PANTOPRAZOLE SODIUM TAB 40 MG PO ONE (08:07)
[2020-03-29] MEDS ORDERED: CARVEDILOL 12.5 MG TAB ONE ×2 (08:07→20:22)
[2020-03-29] MEDS ORDERED: DULoxetine HCL 30 MG CAP PO ONE (08:07)
[2020-03-29] MEDS ORDERED: LISINOPRIL 10 MG TAB ONE (08:08)
[2020-03-29] MEDS ORDERED: LEVOTHYROXINE SODIUM 0.075 MG TAB ONE (08:08)
[2020-03-29] MEDS ORDERED: tiZANidine 4 MG TAB ONE ×2 (08:32→19:23)
[2020-03-29] MEDS: NON-FORMULARY MEDICATION 1 EA MIS (Duloxetine Hcl [Cymbalta] 60 MG) PO SCH (08:36)
[2020-03-29] MEDS: TIZANIDINE HCL 2 MG PO PRN ×2 (08:36→19:24)
[2020-03-29] MEDS: NON-FORMULARY MEDICATION 1 EA MIS (Levothyroxine Sodium [Synthroid] 150 MCG) PO SCH (08:36)
[2020-03-29] MEDS: ASPIRIN (CHEWABLE) 81 MG TAB PO SCH (08:36)
[2020-03-29] MEDS: LISINOPRIL 10 MG TAB PO SCH (08:37)
[2020-03-29] MEDS: DOXYCYCLINE PO SCH ×2 (08:37→20:29)
[2020-03-29] MEDS: NON-FORMULARY MEDICATION 1 EA MIS (Atorvastatin Calcium [Lipitor] 40 MG) PO SCH (08:37)
[2020-03-29] MEDS: PANTOPRAZOLE SODIUM TAB 40 MG PO SCH (08:37)
[2020-03-29] MEDS: CARVEDILOL 12.5 MG TAB PO SCH ×2 (08:37→20:27)
[2020-03-29] MEDS: MONTELUKAST 10 MG TAB PO SCH (08:37)
[2020-03-29] MEDS ORDERED: HYDROmorphone HCL INJ 2 MG/ML VIAL ONE ×4 (08:46→20:48)
[2020-03-29] MEDS: HYDROmorphone HCL INJ 2 MG/ML VIAL IV PRN ×4 (08:47→20:50)
--- NOTE | 2020-03-29 16:14 | PN ---
SUPERVISING PHYSICIAN: Aftab Howell MD DATE: 03/29/20 SUBJECTIVE: The patient finally got good pain control after she was put on CAR COOPER pump. She seemed to be a little dry overnight because she was becoming a little tachycardic and positional and had some mild hypotension, but she responded well to a couple of doses of normal saline. The nurses report she is not really having good oral intake and her urine seems to be concentrated, so I am going to leave her on just maintenance fluids as she is doing fairly well at this point. She has had no other complaints other than she is having on and off spasms in that left hip. OBJECTIVE: VITAL SIGNS: Temperature 98, pulse 90, blood pressure 104/67, respiratory rate 16, saturation 97% on 2 liters nasal cannula. GENERAL: The patient is resting comfortably now. She is alert. CHEST: Lungs are clear to auscultation. HEART: Regular rate and rhythm. ABDOMEN: Soft, nontender. Positive bowel sounds. EXTREMITIES: Left leg remains internally rotated, shortened with some bruising noted on the lateral aspect of the hip. Pulses remains intact, strong, 2+ bilaterally with brisk capillary refill. No reported paresthesias. NEUROLOGIC: Alert and oriented times three. SKIN: Warm, pink and dry except as noted over the left hip. LABORATORY: White count 11,300, hemoglobin down to 9.6, hematocrit 30.0, purulent 184.000. Differential is without a left shift. Chemistries are stable with normal electrolytes, creatinine 0.76. Calcium 7.9 corrected to 8.2 for albumin of 2.9. Bilirubin slightly elevated at 1.8, otherwise other liver functions within normal limits with nothing to indicate acute infection. MICROBIOLOGY: Nasal swab for COVID was negative. RADIOLOGY: Chest x-ray yesterday was without any acute cardiopulmonary disease seen. ASSESSMENT: 1. Status post same level fall with resultant comminuted mildly displaced intertrochanteric fracture of the left proximal femur, awaiting Gamma nail procedure on 03/30/20. 2. Mild leukocytosis with no signs of infection, likely due to demargination from acute trauma and pain. 3. Hypertension, controlled. 4. History of previous myocardial infarctions x2. 5. History of multiple episodes of pancreatitis with no acute signs of abdominal pain on admission. 6. Chronic knee infection on doxycycline, followed as an outpatient. 7. History of lung nodules, followed by her primary care physician, Dr. Salinas. 8. Hypothyroidism, on supplementation. 9. Hyperlipidemia. 10. Obstructive sleep apnea, not currently using CPAP. PLAN: Dr. Peace has seen the patient in consultation. We are going to plan to do a Gamma nail if possible tomorrow morning on 03/30/20. She will be made NPO tonight. She is on maintenance fluids as she has not really had good oral intake with now normal saline at 80 an hour. Once she is NPO tonight, we will change her over to some LR. She will have a dose of Protonix in the morning. We will plan to hold her medications as appropriate and requested by Anesthesia. Until then, she will remain on CAR COOPER morphine for pain control. We are holding her Lovenox until she is postoperative. We will watch her H&H. I think it dropped this admission just because she was dry. No obvious signs of bleeding at this point. She has been typed and screened with 2 units on hold. Until the patient can transition to outpatient management, we will continue to monitor and treat as needed. #[id number] [facility]
[2020-03-29] MEDS ORDERED: ATORVASTATIN 20 MG TAB PO SCH (21:00)
[2020-03-29] MEDS ORDERED: diphenhydrAMINE HCL 50 MG/ML VIAL ONE (21:29)
[2020-03-29] MEDS: diphenhydrAMINE HCL 50 MG/ML VIAL IV PRN (21:30)
[2020-03-30] MEDS ORDERED: HYDROmorphone HCL INJ 2 MG/ML VIAL ONE ×3 (00:51→06:51)
[2020-03-30] MEDS: HYDROmorphone HCL INJ 2 MG/ML VIAL IV PRN ×2 (01:03→04:05)
[2020-03-30] MEDS: LACTATED RINGERS 1,000 ML IVS PRN ×2 (01:05→15:58)
[2020-03-30] MEDS ORDERED: diphenhydrAMINE HCL 50 MG/ML VIAL ONE (04:27)
[2020-03-30] MEDS: diphenhydrAMINE HCL 50 MG/ML VIAL IV PRN (04:28)
[2020-03-30] MEDS ORDERED: ACETAMINOPHEN SUPPOSITORY 650 MG PR ONE (04:52)
[2020-03-30] MEDS ORDERED: LEVALBUTEROL NEBS 1.25 MG/3 ML VIAL NEB ONE (06:35)
[2020-03-30] MEDS ORDERED: KETAMINE HCL 100 MG/ML VIAL ONE (06:50)
[2020-03-30] MEDS ORDERED: ceFAZolin SODIUM 1 GM VIAL IRRIG ONE (07:14)
[2020-03-30] MEDS ORDERED: BUPIVACAINE LIPOSOME 13.3 MG/ML VIAL INJ ONE ×2 (07:14→07:38)
[2020-03-30] MEDS ORDERED: BUPIVACAINE 0.5% 30 ML VIAL INJ ONE ×2 (07:14→07:38)
[2020-03-30] MEDS ORDERED: VANCOMYCIN HCL INJ 1,000 MG VIAL IVPB ONE ×4 (07:14→08:03)
[2020-03-30] MEDS ORDERED: DEXMEDETOMIDINE HCL 200 MCG/2 ML INJ IV ONE (07:35)
[2020-03-30] MEDS ORDERED: ceFAZolin SODIUM 1 GM VIAL ONE (07:38)
[2020-03-30] MEDS ORDERED: ELECTROLYTE-A 1,000 ML IVS ONE (08:22)
[2020-03-30] MEDS ORDERED: SODIUM CHLORIDE 0.9% (FLUSH) 10 ML SYG ONE (08:51)
[2020-03-30] MEDS: ASPIRIN (CHEWABLE) 81 MG TAB PO SCH (08:56)
[2020-03-30] MEDS: NON-FORMULARY MEDICATION 1 EA MIS (Duloxetine Hcl [Cymbalta] 60 MG) PO SCH (08:56)
[2020-03-30] MEDS: NON-FORMULARY MEDICATION 1 EA MIS (Levothyroxine Sodium [Synthroid] 150 MCG) PO SCH (08:56)
[2020-03-30] MEDS: MONTELUKAST 10 MG TAB PO SCH (08:57)
[2020-03-30] MEDS: PANTOPRAZOLE SODIUM TAB 40 MG PO SCH (08:57)
[2020-03-30] MEDS ORDERED: DOXYCYCLINE HYCLATE CAP 100 MG CAP PO SCH (09:15)
[2020-03-30] MEDS ORDERED: MEPERIDINE HCL 50 MG/ML VIAL ONE (09:26)
[2020-03-30] MEDS ORDERED: HYDROcodone 10MG/APAP 325MG 1 EA TAB PO PRN (09:30)
[2020-03-30] MEDS ORDERED: tiZANidine 4 MG TAB PO PRN (09:30)
[2020-03-30] MEDS ORDERED: fentaNYL CITRATE INJ 50 MCG/ML 2 ML AMP ONE (09:53)
--- NOTE | 2020-03-30 09:54 | RAD ---
Intraoperative radiograph left hip Indication: GAMMA LEFT HIP Comparison: March 28, 2020 Impression: Intraoperative radiographs demonstrate ORIF of the previously noted left intratrochanteric femoral neck fracture. 4 images submitted. Fluoroscopy time not submitted. Electronically signed by: Justino Leal MD 03/30/2020 9:52 AM [facility]
--- NOTE | 2020-03-30 10:17 | RAD ---
EXAM DESCRIPTION: Knee,Left 1 or 2 Views CLINICAL HISTORY: 74 years, Female, POST OP DR IBARRA COMPARISON: None TECHNIQUE: Two views left knee FINDINGS: Advanced osteopenia is present with moderately large joint effusion. Marked deformity of both the medial and lateral joint compartment with likely old injury or end-stage degenerative change with marked cupping of the lateral tibial plateau and lateral medial downward tilting of the medial tibial plateau. Acute fracture lines not apparent. Subacute or old injury suspected. Consider further evaluation with MR left knee and/or CT examination. IMPRESSION: 1. Markedly deformed and osteopenic, left knee with moderately large joint effusion or less likely hemarthrosis. 2. Marked cupping and impaction of the medial tibial plateau without distinct fracture lines and deformity of the medial joint compartment with impaction of the medial margin of the medial tibial plateau without distinct fracture lines are identified. Correlation with any acute trauma to the left knee and consideration for MRI or CT examination recommended. Electronically signed by: Wesley Winchester MD 03/30/2020 10:16 AM [facility]
--- NOTE | 2020-03-30 10:19 | RAD ---
EXAM DESCRIPTION: Pelvis,2 or More Views CLINICAL HISTORY: 74 years Female, post op COMPARISON: None. FINDINGS: Three views to include the pelvis and left hip demonstrate internal fixation with short anchored intramedullary shemar in the proximal femoral shaft and interlocking compression nail with essentially anatomic alignment of intertrochanteric fracture. A mildly displaced medial trochanteric fragment that is not internally fixed is noted. Postoperative subcutaneous air evident laterally and medially surrounding the fracture site. Bones are osteopenic. The acetabulum and superior and inferior pubic ramus on the left. Intact. No disruption of the pelvic ring noted. IMPRESSION: Satisfactory internal fixation of left hip intertrochanteric fracture. Electronically signed by: Wesley Winchester MD 03/30/2020 10:18 AM [facility]
[2020-03-30] MEDS ORDERED: LACTATED RINGERS 1,000 ML ONE (10:22)
[2020-03-30] MEDS: CARVEDILOL 12.5 MG TAB PO SCH (10:47)
[2020-03-30] MEDS: LISINOPRIL 10 MG TAB PO SCH (10:49)
[2020-03-30] MEDS ORDERED: PHENYLEPHRINE INJ 1ML 10 MG/ML VIAL IV ONE (10:56)
[2020-03-30] MEDS ORDERED: ceFAZolin SODIUM 1 GM VIAL IVPB ONE (10:56)
[2020-03-30] MEDS ORDERED: MAGNESIUM SULFATE INJ 1 GM/2 ML VIAL IVPB ONE (10:56)
[2020-03-30] MEDS ORDERED: DEXAMETHASONE INJ 10 MG/ML VIAL IV ONE (10:56)
[2020-03-30] MEDS ORDERED: PROPOFOL 200 MG/20 ML VIAL IV ONE (10:56)
[2020-03-30] MEDS ORDERED: SODIUM CHLORIDE 0.9% 50 ML VIAL INJ ONE (10:56)
[2020-03-30] MEDS: DOXYCYCLINE PO SCH (10:57)
[2020-03-30] MEDS ORDERED: ACETAMINOPHEN IV 1000MG 1,000 MG in PREMIX BOTTLE 1 BOTTLE IVPB ONE (11:20)
[2020-03-30] MEDS ORDERED: ACETAMINOPHEN IV 1000MG 100 ML ONE (11:27)
--- NOTE | 2020-03-30 11:40 | PN ---
SUPERVISING PHYSICIAN: Gordo Merrill MD DATE: 03/30/20 SUBJECTIVE: The patient has just returned for surgery. She is complaining of more of left knee pain than hip pain. She is on a FIRE WARDEN and has received fentanyl in the Operating Room. She did have a knee x-ray this morning as well. OBJECTIVE: VITAL SIGNS: Blood pressure 153/88, heart rate 117, respiratory rate 20, temperature 99.7, oxygen saturation 92%. GENERAL: Ms. Bray is a 74-year-old female who is not currently in any distress. NEUROLOGIC: The patient is alert. LUNGS: A little bit of rales in the bases, but otherwise clear to auscultation bilaterally. CARDIOVASCULAR: Elevated heart rate which is tachycardic. ABDOMEN: Soft. Positive bowel sounds. EXTREMITIES: Lower extremities with no edema. Pulses 2+. Capillary refill is less than 2 seconds. Dressing to the left hip. Left knee tender to palpation. LABORATORY: She did not have any labs today. RADIOLOGY: Knee x-ray showed left knee effusion and impaction of the tibial plateau apparently. ASSESSMENT: 1. Left displaced intertrochanteric fracture of the proximal left femur status post Gamma nail procedure. 2. Mild leukocytosis on doxycycline with no distinct source of infection. 3. Left knee effusion. 4. Hypertension. 5. History of myocardial infarctions. 6. Chronic knee infection on doxycycline as an outpatient. 7. Chronic lung nodules, followed by her primary care physician, Dr. Salinas. 8. Hypothyroidism. 9. Hyperlipidemia. 10. Obstructive sleep apnea, not currently using CPAP. PLAN: We will monitor her postoperatively with pain control and physical therapy. We will monitor labs, recheck tomorrow. She will continue the Tamayo catheter until she is more mobile. #[id number] [facility]TDD
[2020-03-30] MEDS ORDERED: LACTATED RINGERS 1,000 ML IVS ONE ×2 (13:45→14:27)
[2020-03-30] MEDS ORDERED: NALOXONE HCL INJ 0.4 MG/ML VIAL ONE (13:47)
[2020-03-30] MEDS ORDERED: MEROPENEM 500 MG in SODIUM CHL 0.9% 50ML MIN-BAG+ 50 ML IVPB SCH (14:30)
[2020-03-30] MEDS ORDERED: VANCOMYCIN PER PHARMACY IVPB SCH (14:30)
[2020-03-30] MEDS ORDERED: ENOXAPARIN SODIUM 40 MG/0.4 ML SYG SUBCU SCH (14:30)
[2020-03-30] MEDS ORDERED: MEROPENEM 500 MG VIAL IVPB ONE (14:51)
[2020-03-30] MEDS ORDERED: SODIUM CHL 0.9% 50ML MIN-BAG+ 50 ML IVPB ONE (14:52)
[2020-03-30] MEDS ORDERED: SODIUM CHLORIDE 0.9% 500ML 500 ML ONE (15:28)
[2020-03-30] MEDS ORDERED: SODIUM CHLORIDE 0.9% 500ML 500 ML IVS PRN (15:43)
[2020-03-30] MEDS ORDERED: VANCOMYCIN HCL INJ 1,000 MG in SODIUM CHLORIDE 0.9% 250ML 250 ML IVPB SCH (16:00)
[2020-03-30] MEDS ORDERED: NOREPINEPHRINE BITARTRATE 4 MG/4 ML VIAL IVPB ONE (16:28)
[2020-03-30 16:52] VITALS: O2SAT 98
[2020-03-30 17:30] VITALS: TEMP 98.1
[2020-03-30] MEDS ORDERED: NOREPINEPHRINE BITARTRATE 4 MG in DEXTROSE 5% 250ML 250 ML IVPB SCH (17:30)
[2020-03-30] MEDS ORDERED: LACTATED RINGERS 1,000 ML IVS PRN (17:40)
[2020-03-30 18:02] VITALS: BP 101/65
--- NOTE | 2020-03-30 20:19 | PN ---
DATE: 03/30/20 POSTOPERATIVE CHECK - 1:00 PM SUBJECTIVE: Ms. Bray is resting although she is exhibiting some confusion that was there preoperatively prior to be putting to sleep by Anesthesia. OBJECTIVE: She is afebrile. Vital signs are stable. Dressing is clean, dry and intact. She has intact sensation distally. She has full range of motion and full strength distally. ASSESSMENT: 1. Status post gamma nailing. 2. Acute confusion. PLAN: The plan at this point is for her to begin toe touch weightbearing in the morning. Will monitor the confusion and hold off of pain medications for the time being. It is reported that she did have morphine preoperatively which did cause a worsening of her confusion. [facility][id number] [facility]
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
[2020-03-31] MEDS ORDERED: LEVOTHYROXINE SODIUM 0.075 MG TAB PO SCH (06:30)
[2020-03-31] MEDS ORDERED: PANTOPRAZOLE SODIUM TAB 40 MG PO SCH (06:30)
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
[2020-03-31] MEDS ORDERED: DULoxetine HCL 30 MG CAP PO SCH (09:00)
== END 2020-03-30 18:15 | disposition short-term general hospital (02) | DRG 481 ==
LOC: ER 23:54 → MS 03-28 05:51 → OBSVTOIN 03-28 05:51
PROVIDERS: ADMIT Nurse Practitioner Family; ATTEND Nurse Practitioner
PROC: 30233N1 Transfusion of Nonautologous Red Blood Cells into Peripheral Vein, Percutaneous Approach (ICD-10-PCS; 2020-03-30)
PROC: 0QH704Z Insertion of Internal Fixation Device into Left Upper Femur, Open Approach (ICD-10-PCS; principal; 2020-03-30 08:00)
DX: S72.142A Displaced intertrochanteric fracture of left femur, initial encounter for closed fracture (principal); D62 Acute posthemorrhagic anemia; R57.9 Shock, unspecified; M00.862 Arthritis due to other bacteria, left knee; V00.831A Fall from motorized mobility scooter, initial encounter; Y92.009 Unspecified place in unspecified non-institutional (private) residence as the place of occurrence of the external cause; G47.33 Obstructive sleep apnea (adult) (pediatric); E78.5 Hyperlipidemia, unspecified; E89.0 Postprocedural hypothyroidism; R91.8 Other nonspecific abnormal finding of lung field; I25.2 Old myocardial infarction; I10 Essential (primary) hypertension; I95.9 Hypotension, unspecified; G89.11 Acute pain due to trauma; Z79.2 Long term (current) use of antibiotics; Z79.82 Long term (current) use of aspirin; Z79.891 Long term (current) use of opiate analgesic; Z79.899 Other long term (current) drug therapy; Z88.0 Allergy status to penicillin; Z88.2 Allergy status to sulfonamides; Z88.5 Allergy status to narcotic agent; Z87.891 Personal history of nicotine dependence